=== PATIENT | female | born 1970 | race Caucasian/White ===

== ENCOUNTER 2016-07-19 15:47 | Emergency (ER) | payer OTHER ==
[2016-07-19 15:53] VITALS: BP 154/80; PULSE 99; RESP 20; TEMP 97.1
[2016-07-19] MEDS ORDERED: MORPHINE SULFATE 4 MG/ML SYRINGE IM STA (16:17)
--- NOTE | 2016-07-19 16:20 | ED ---
Back Pain HPI - General Chief Complaint: Back Pain/Injury Stated Complaint: back pain Time Seen by Provider: 07/19/16 15:58 Source: patient, RN notes reviewed Limitations: no limitations - History of Present Illness Initial Comments: 46-year-old female presents emergency Department with chief complaint of chronic back pain. Patient states that she's had exacerbation of her pain over the last 24 hours. Patient's try to [place] several occasions no relief. She also takes Valium. Patient denies any bowel bladder cancer retention. Denies any saddle anesthesias lower extremity paresthesias. Denies abdominal pain including nausea, vomiting, diarrhea constipation. She states pain is better at rest worse with movement. Patient states she's had prior back surgery in the past. Patient states she takes 4-6 [place] daily. - Related Data Home Medications Medication Instructions Recorded Confirmed Lisinopril [Zestril] 10 mg PO DAILY 08/08/14 07/19/16 amLODIPine [Norvasc] 5 mg PO DAILY 08/08/14 07/19/16 glipiZIDE [Glucotrol] 20 mg PO BID 08/08/14 07/19/16 metFORMIN HCL 1,000 mg PO BID 08/08/14 07/19/16 Diazepam [Valium] 10 mg PO Q8H PRN 03/15/16 07/19/16 Hydrocodone/Acetaminophen [[place] 1 - 2 tab PO Q4HR PRN 03/15/16 07/19/16 5-325] Levothyroxine Sodium [Synthroid] 175 mcg PO DAILY 03/15/16 07/19/16 Ibuprofen [Motrin] 800 mg PO Q6HR PRN 07/19/16 07/19/16 Omeprazole [PriLOSEC] 20 mg PO DAILY 07/19/16 07/19/16 Previous Rx's Medication Instructions Recorded predniSONE 50 mg PO DAILY #3 tab 07/19/16 Allergies Allergy/AdvReac Type Severity Reaction Status Date / Time No Known Allergies Allergy Verified 07/19/16 16:09 Review of Systems ROS Statement: Those systems with pertinent positive or pertinent negative responses have been documented in the HPI. ROS Other: All systems not noted in ROS Statement are negative. Past Medical History Past Medical History: Diabetes Mellitus, Hypertension Additional Past Medical History / Comment(s): chronic low back pain History of Any Multi-Drug Resistant Organisms: None Reported Past Surgical History: Back Surgery, Cholecystectomy, Hysterectomy Past Psychological History: No Psychological Hx Reported Smoking Status: Former smoker Past Alcohol Use History: Occasional Past Drug Use History: None Reported General Exam Limitations: no limitations General appearance: alert, in no apparent distress Neck exam: Present: normal inspection. Absent: tenderness, meningismus, lymphadenopathy Respiratory exam: Present: normal lung sounds bilaterally. Absent: respiratory distress, wheezes, rales, rhonchi, stridor Cardiovascular Exam: Present: regular rate, normal rhythm, normal heart sounds. Absent: systolic murmur, diastolic murmur, rubs, gallop, clicks GI/Abdominal exam: Present: soft, normal bowel sounds. Absent: distended, tenderness, guarding, rebound, rigid Extremities exam: Present: normal inspection, full ROM, normal capillary refill. Absent: tenderness, pedal edema, joint swelling, calf tenderness Back exam: Present: full ROM, tenderness (Mild tenderness left low back), paraspinal tenderness. Absent: vertebral tenderness Neurological exam: Present: alert, oriented X3, CN II-XII intact, reflexes normal. Absent: motor sensory deficit Course Vital Signs 07/19/16 15:50 Temperature 97.1 F L Pulse Rate 99 Respiratory 20 Rate Blood Pressure 154/80 O2 Sat by Pulse 97 Oximetry Medical Decision Making - Medical Decision Making 46-year-old female presented for chronic back pain. Patient given pain medications here in emergency department and discharged. Return parameters were discussed. Patient has no red flag symptoms no neurological deficits. Disposition Clinical Impression: Chronic back pain Disposition: HOME SELF-CARE Condition: Stable Instructions: Chronic Back Pain (ED) Additional Instructions: Please return to the Emergency Department if symptoms worsen or any other concerns. Prescriptions: predniSONE 50 mg PO DAILY #3 tab Time of Disposition: 16:20
[2016-07-19] MEDS ORDERED: diphenhydrAMINE 50 MG CAP PO STA (16:32)
== END 2016-07-19 16:53 | disposition home or self-care (01) ==
LOC: EC 15:47
DX: G89.29 Other chronic pain (principal); M54.9 Dorsalgia, unspecified; E11.9 Type 2 diabetes mellitus without complications; I10 Essential (primary) hypertension; Z87.891 Personal history of nicotine dependence; Z79.84 Long term (current) use of oral hypoglycemic drugs; Z79.899 Other long term (current) drug therapy
CPT/HCPCS: 99283; 96372; J2270

== ENCOUNTER 2016-09-19 20:30 | Emergency (ER) | payer OTHER ==
[2016-09-19 21:12] VITALS: BP 123/68; PULSE 102; RESP 18; TEMP 97.6
[2016-09-19] MEDS ORDERED: MORPHINE SULFATE 10 MG/ML SYRINGE IM STA (21:59)
--- NOTE | 2016-09-19 22:03 | ED ---
Back Pain HPI - General Chief Complaint: Back Pain/Injury Stated Complaint: back pain Time Seen by Provider: 09/19/16 21:32 Source: patient, RN notes reviewed Limitations: no limitations - History of Present Illness Initial Comments: Patient is a 46-year-old female presents to the emergency room for evaluation of low back pain. Patient states she has a history of chronic low back pain. Patient states she takes [place] daily. Patient states about 2 days ago she tripped over her dog and fell on her left side. Patient states she has been having worsening left-sided low back pain with pain radiating down her left leg. Patient denies fecal or urinary incontinence. Patient denies saddle anesthesia. Patient denies paresthesias. Patient states the [place] is not helping her pain. Patient states she needs something to help her go to sleep tonight. Patient denies any other injuries during incident. Patient states she feels like she has swelling over the left side of her lower back. - Related Data Home Medications Medication Instructions Recorded Confirmed Lisinopril [Zestril] 10 mg PO DAILY 08/08/14 07/19/16 amLODIPine [Norvasc] 5 mg PO DAILY 08/08/14 07/19/16 glipiZIDE [Glucotrol] 20 mg PO BID 08/08/14 07/19/16 metFORMIN HCL 1,000 mg PO BID 08/08/14 07/19/16 Diazepam [Valium] 10 mg PO Q8H PRN 03/15/16 07/19/16 Hydrocodone/Acetaminophen [[place] 1 - 2 tab PO Q4HR PRN 03/15/16 07/19/16 5-325] Levothyroxine Sodium [Synthroid] 175 mcg PO DAILY 03/15/16 07/19/16 Ibuprofen [Motrin] 800 mg PO Q6HR PRN 07/19/16 07/19/16 Omeprazole [PriLOSEC] 20 mg PO DAILY 07/19/16 07/19/16 Previous Rx's Medication Instructions Recorded predniSONE 50 mg PO DAILY #3 tab 07/19/16 Allergies Allergy/AdvReac Type Severity Reaction Status Date / Time No Known Allergies Allergy Verified 09/19/16 21:13 Review of Systems ROS Statement: Those systems with pertinent positive or pertinent negative responses have been documented in the HPI. ROS Other: All systems not noted in ROS Statement are negative. Past Medical History Past Medical History: Diabetes Mellitus, Hypertension Additional Past Medical History / Comment(s): chronic low back pain History of Any Multi-Drug Resistant Organisms: None Reported Past Surgical History: Back Surgery, Cholecystectomy, Hysterectomy Past Psychological History: No Psychological Hx Reported Smoking Status: Former smoker Past Alcohol Use History: Occasional Past Drug Use History: None Reported General Exam - General Exam Comments Initial Comments: sitting up in exam room, no acute distress. Limitations: no limitations General appearance: alert, in no apparent distress Head exam: Present: atraumatic, normocephalic, normal inspection Eye exam: Present: normal appearance ENT exam: Present: normal exam Neck exam: Present: normal inspection Respiratory exam: Present: normal lung sounds bilaterally. Absent: respiratory distress Cardiovascular Exam: Present: regular rate, normal rhythm, normal heart sounds Back exam: Present: normal inspection, paraspinal tenderness (tenderness on palpating over her left side of the lumbosacral spine. No swelling noted. No eccymosis noted.), vertebral tenderness (palpating over lumbosacral spine) Neurological exam: Present: alert, oriented X3, CN II-XII intact Psychiatric exam: Present: normal affect, normal mood Skin exam: Present: warm, dry, intact, normal color. Absent: rash Course Vital Signs 09/19/16 21:11 Temperature 97.6 F Pulse Rate 102 H Respiratory 18 Rate Blood Pressure 123/68 O2 Sat by Pulse 97 Oximetry Medical Decision Making - Medical Decision Making patient is a 46-year-old female since emergency room for evaluation of acute on chronic low back pain. Patient did fall about 2 days ago landing on her left side. Patient having worsening left-sided low back pain rating into her left leg. Patient denies saddle anesthesia, urinary or fecal incontinence. Lumbosacral x-ray shows no acute findings. Patient states she is feeling a lot better after pain medications given. Advised patient to follow-up with primary care provider. Patient states she understands everything that was discussed with her. Return parameters discussed. - Radiology Data Radiology results: report reviewed, image reviewed Disposition Clinical Impression: Acute exacerbation of chronic low back pain, Fall Disposition: HOME SELF-CARE Condition: Good Instructions: Chronic Back Pain (ED) Additional Instructions: Continue with at home pain medications as needed. Alternate ice and heat. Please follow-up with primary care provider in 24-48 hours for reevaluation. If any new symptoms develop or worsen please return to the emergency room. Referrals: Tj Peace MD [Primary Care Provider] - 1-2 days Time of Disposition: 22:50
--- NOTE | 2016-09-19 22:44 | XR ---
EXAM: XR Lumbar Spine, 4 or 5 Views CLINICAL HISTORY: Reason: Pain TECHNIQUE: Frontal, lateral and oblique views of the lumbar spine. COMPARISON: No relevant prior studies available. FINDINGS: Vertebrae: Unremarkable. No acute fracture. Normal alignment. Disc spaces: Disc space narrowing and endplate degenerative changes at L5-S1 where there may have been previous laminectomy, along with lower lumbar facet degenerative changes at L5-S1 and to a lesser degree L4-5. Soft tissues: Unremarkable. IMPRESSION: 1. Lower lumbar spondylosis notably at L5-S1, where there appears to have been prior surgery. 2. No acute fracture or listhesis is seen.
== END 2016-09-19 23:01 | disposition home or self-care (01) ==
LOC: EC 20:30
DX: G89.29 Other chronic pain (principal); M54.5 Low back pain; Z91.81 History of falling; Z79.899 Other long term (current) drug therapy; E11.9 Type 2 diabetes mellitus without complications; Z79.84 Long term (current) use of oral hypoglycemic drugs; I10 Essential (primary) hypertension; Z87.891 Personal history of nicotine dependence
CPT/HCPCS: 96372; 99283; 72110; J2270

== ENCOUNTER 2016-10-01 14:01 | Observation (INO) | payer OTHER ==
[2016-10-01] MEDS ORDERED: MORPHINE SULFATE 10 MG/ML SYRINGE IV ONE (15:13)
[2016-10-01] MEDS ORDERED: SODIUM CHLORIDE 0.9% 2,000 ML IV ONE (15:13)
--- NOTE | 2016-10-01 15:24 | ED ---
Fall HPI - General Chief Complaint: Fall Stated Complaint: Fall/hit head/vomiting Time Seen by Provider: 10/01/16 14:55 Source: EMS Mode of arrival: EMS Limitations: no limitations - History of Present Illness Initial Comments: Patient is a 46-year-old female who presents with a chief complaint of fall. He states that she was at home, stood up from a chair and fell backwards and hit her head on an entertainment system. Patient states that she has been dealing with dizziness for several months. She has not been seen by a physician for this issue yet. Patient describes her dizziness as more of a disequilibrium, she states she feels that she is on a boat. Patient states that she does take [place], and Valium on a daily basis for a vertebral body fracture. Patient states that currently she has a headache. She describes the pain as a throbbing pain. Patient did not lose consciousness, did not have any bleeding. He does state that she became nauseous, and vomited about 10 minutes after falling. Patient's daughter called EMS, and the patient presented to the emergency department. MD Complaint: fall Onset/Timin -: hour(s) Fall From: standing When Fall Occurred: 1 hour [facility] Fall Witnessed: yes, by family Place Fall Occurred: home Loss of Consciousness: none Prolonged Down Time?: no Symptoms Prior to Fall: other (Disequilibrium) Location: head Severity: moderate Quality: other (Throbbing) Context: new medication Associated Symptoms: headache, other (Nausea and vomiting) - Related Data Home Medications Medication Instructions Recorded Confirmed Lisinopril [Zestril] 10 mg PO DAILY 08/08/14 10/01/16 glipiZIDE [Glucotrol] 20 mg PO BID 08/08/14 10/01/16 metFORMIN HCL 1,000 mg PO BID 08/08/14 10/01/16 Diazepam [Valium] 10 mg PO BID 03/15/16 10/01/16 Hydrocodone/Acetaminophen [[place] 2 tab PO BID 03/15/16 10/01/16 5-325] Levothyroxine Sodium [Synthroid] 175 mcg PO DAILY 03/15/16 10/01/16 Insulin Glargine [Lantus] 5 unit SQ HS 10/01/16 10/01/16 amLODIPine [Norvasc] 10 mg PO DAILY 10/01/16 10/01/16 Allergies Allergy/AdvReac Type Severity Reaction Status Date / Time bupivacaine AdvReac Unknown Verified 10/01/16 15:27 fentanyl AdvReac Unknown Verified 10/01/16 15:27 Review of Systems ROS Statement: Those systems with pertinent positive or pertinent negative responses have been documented in the HPI. Patient admits to disequilibrium, dizziness, nausea, vomiting, and headache. All other systems are negative. ROS Other: All systems not noted in ROS Statement are negative. Past Medical History Past Medical History: Diabetes Mellitus, Hypertension Additional Past Medical History / Comment(s): chronic low back pain History of Any Multi-Drug Resistant Organisms: None Reported Past Surgical History: Back Surgery, Cholecystectomy, Hysterectomy Past Psychological History: No Psychological Hx Reported Smoking Status: Former smoker Past Alcohol Use History: Occasional Past Drug Use History: None Reported General Exam Limitations: no limitations General appearance: alert, in no apparent distress Head exam: Present: atraumatic, normocephalic, other (Patient has tenderness to palpation in the posterior aspect of her head, just above the occiput) Eye exam: Present: normal appearance ENT exam: Present: normal exam, mucous membranes moist Neck exam: Present: tenderness (Patient does have midline and paraspinal tenderness palpation of the C-spine.) Respiratory exam: Present: normal lung sounds bilaterally Cardiovascular Exam: Present: regular rate, normal rhythm GI/Abdominal exam: Present: soft Rectal exam: Present: deferred Extremities exam: Present: normal inspection Back exam: Present: other (The patient has tenderness to palpation in the lower back, this is a chronic issue.) Neurological exam: Present: alert, oriented X3, abnormal gait Psychiatric exam: Present: normal affect, normal mood Skin exam: Present: warm, dry, intact Course Vital Signs 10/01/16 10/01/16 14:52 15:38 Temperature 96.7 F L Pulse Rate 84 90 Respiratory 20 16 Rate Blood Pressure 115/63 126/77 O2 Sat by Pulse 97 97 Oximetry Medical Decision Making - Medical Decision Making Patient is a 46-year-old female who presents with a chief complaint of fall after feeling off balance at home. Patient states that this issue has been going on for several months, though she has never been seen specifically for her disequilibrium. Patient was placed in a c-collar secondary to neck pain. She will go for a CT head and neck. Basic, and cardiac evaluation will be sent to rule out extraneous causes of dizziness. Neurologic exam is concerning as patient is having difficulty ambulating by herself. Patient states that she feels as if she is on a boat. I discussed ultimate disposition with the patient and recommended admission for MRI, and consult to neurology. Patient family are agreeable with this plan at this time. EKG performed at 1533 shows normal sinus rhythm with a rate of 88 bpm. Segments appear within normal limits. EKG is otherwise nonspecific. 4:46 PM Laboratory evaluation of this patient shows leukocytosis 13,000 white blood cells. Urinalysis concerning for urinary tract infection. The patient was started on Rocephin. This time currently awaiting interpretation of computed tomography scan. Initial troponin is negative, however pending a normal computed tomography scan the patient will get a dose of aspirin. 5:10 PM Computed tomography scan of the head and cervical spine are unremarkable. Patient will be given 324 aspirin this time. This case was discussed with Dr. Mallory who accepts admission of this patient for MRI. MRI will be ordered from the ED, and followed by Dr. Mallory. Reevaluation of the patient shows that the patient remains stable. Patient was given a dose of Zofran for nausea. Patient was updated on her results thus far, and is still agreeable to admission for MRI. - Lab Data Result diagrams: 10/01/16 15:40 10/01/16 15:40 Lab Results 10/01/16 10/01/16 10/01/16 Range/Units 15:40 15:40 15:40 WBC 13.7 H (3.8-10.6) k/uL RBC 5.41 H (3.80-5.40) m/uL Hgb 16.1 H (11.4-16.0) gm/dL Hct 46.2 H (34.0-46.0) % MCV 85.4 (80.0-100.0) fL MCH 29.8 (25.0-35.0) pg MCHC 34.9 (31.0-37.0) g/dL RDW 12.7 (11.5-15.5) % Plt Count 349 (150-450) k/uL Neutrophils % 45 % Lymphocytes % 46 % Monocytes % 4 % Eosinophils % 2 % Basophils % 1 % Neutrophils # 6.2 (1.3-7.7) k/uL Lymphocytes # 6.3 H (1.0-4.8) k/uL Monocytes # 0.5 (0-1.0) k/uL Eosinophils # 0.3 (0-0.7) k/uL Basophils # 0.1 (0-0.2) k/uL Polychromasia Present Sodium 137 (137-145) mmol/L Potassium 4.5 (3.5-5.1) mmol/L Chloride 101 (98-107) mmol/L Carbon Dioxide 23 (22-30) mmol/L Anion Gap 13 mmol/L BUN 14 (7-17) mg/dL Creatinine 0.55 (0.52-1.04) mg/dL Est GFR (MDRD) Af Amer >60 (>60 ml/min/1.73 sqM) Est GFR (MDRD) Non-Af >60 (>60 ml/min/1.73 sqM) Glucose 232 H (74-99) mg/dL Calcium 9.9 (8.4-10.2) mg/dL Troponin I <0.012 (0.000-0.034) ng/mL Urine Color Urine Appearance (Clear) Urine pH (5.0-8.0) Ur Specific [place] (1.001-1.035) Urine Protein (Negative) Urine Glucose (UA) (Negative) Urine Ketones (Negative) Urine Blood (Negative) Urine Nitrite (Negative) Urine Bilirubin (Negative) Urine Urobilinogen (<2.0) mg/dL Ur Leukocyte Esterase (Negative) Urine RBC (0-5) /hpf Urine WBC (0-5) /hpf Ur Squamous Epith Cells (0-4) /hpf Urine Bacteria (None) /hpf Urine Mucus (None) /hpf Urine Yeast (Budding) (None) /hpf 10/01/16 Range/Units 15:40 WBC (3.8-10.6) k/uL RBC (3.80-5.40) m/uL Hgb (11.4-16.0) gm/dL Hct (34.0-46.0) % MCV (80.0-100.0) fL MCH (25.0-35.0) pg MCHC (31.0-37.0) g/dL RDW (11.5-15.5) % Plt Count (150-450) k/uL Neutrophils % % Lymphocytes % % Monocytes % % Eosinophils % % Basophils % % Neutrophils # (1.3-7.7) k/uL Lymphocytes # (1.0-4.8) k/uL Monocytes # (0-1.0) k/uL Eosinophils # (0-0.7) k/uL Basophils # (0-0.2) k/uL Polychromasia Sodium (137-145) mmol/L Potassium (3.5-5.1) mmol/L Chloride (98-107) mmol/L Carbon Dioxide (22-30) mmol/L Anion Gap mmol/L BUN (7-17) mg/dL Creatinine (0.52-1.04) mg/dL Est GFR (MDRD) Af Amer (>60 ml/min/1.73 sqM) Est GFR (MDRD) Non-Af (>60 ml/min/1.73 sqM) Glucose (74-99) mg/dL Calcium (8.4-10.2) mg/dL Troponin I (0.000-0.034) ng/mL Urine Color Dark Brown Urine Appearance Cloudy H (Clear) Urine pH 5.5 (5.0-8.0) Ur Specific [place] 1.012 (1.001-1.035) Urine Protein Negative (Negative) Urine Glucose (UA) Negative (Negative) Urine Ketones Negative (Negative) Urine Blood Negative (Negative) Urine Nitrite Positive H (Negative) Urine Bilirubin Negative (Negative) Urine Urobilinogen 2.0 (<2.0) mg/dL Ur Leukocyte Esterase Large H (Negative) Urine RBC 1 (0-5) /hpf Urine WBC 69 H (0-5) /hpf Ur Squamous Epith Cells 2 (0-4) /hpf Urine Bacteria Few H (None) /hpf Urine Mucus Rare H (None) /hpf Urine Yeast (Budding) Occasional H (None) /hpf Disposition Clinical Impression: Abnormal gait, Urinary tract infection Disposition[facility] Condition: Good Referrals: Tj Peace MD [Primary Care Provider] - 1-2 days Decision to Admit Reason: Admit from EC
[2016-10-01 15:58] LABS: Basophils # (A) 0.1 k/uL (0-0.2); Basophils % (A) 1 %; CH 29.6; CHCM 34.8; Eosinophils # (A) 0.3 k/uL (0-0.7); Eosinophils % (A) 2 %; HCT 46.2 % (34.0-46.0); HDW 2.57; HGB 16.1 gm/dL (11.4-16.0); Luc # (Auto) 0.31; Luc % (Auto) 2; Lymphocytes # (A) 6.3 k/uL (1.0-4.8); Lymphocytes % (A) 46 %; MCH 29.8 pg (25.0-35.0); MCHC 34.9 g/dL (31.0-37.0); MCV 85.4 fL (80.0-100.0); Mean Platelet Volume 7.7; Monocytes # (A) 0.5 k/uL (0-1.0); Monocytes % (A) 4 %; Neutrophils # (A) 6.2 k/uL (1.3-7.7); Neutrophils % (A) 45 %; RBC 5.41 m/uL (3.80-5.40); RDW 12.7 % (11.5-15.5); WBC 13.7 k/uL (3.8-10.6); WBC (Perox) 13.15
[2016-10-01 16:06] LABS: Appearance,Urine Cloudy (Clear); Bacteria,Urine Few /hpf; Bilirubin,Urine Negative (Negative); Glucose,Urine (UA) Negative (Negative); Ketones,Urine Negative (Negative); Leukocyte Esterase,Urine Large (Negative); Mucus,Urine Rare /hpf; Nitrite,Urine Positive (Negative); PH, Urine 5.5 (5.0-8.0); Particle Count 4676; Protein,Urine Negative (Negative); RBC,Urine 1 /hpf (0-5); Specific Gravity,Urine 1.012 (1.001-1.035); Squamous Epithelial Cell,Urine 2 /hpf (0-4); UA Billing (MACRO vs. MICRO) MICRO; WBC,Urine 69 /hpf (0-5)
[2016-10-01 16:08] LABS: Anion Gap 13 mmol/L; Blood Urea Nitrogen 14 mg/dL (7-17); Calcium 9.9 mg/dL (8.4-10.2); Carbon Dioxide 23 mmol/L (22-30); Chloride 101 mmol/L (98-107); Glucose 232 mg/dL (74-99); Non-African American GFR(MDRD) >60 (>60 ml/min/1.73 sqM); Potassium 4.5 mmol/L (3.5-5.1); Sodium 137 mmol/L (137-145)
[2016-10-01 16:18] LABS: Polychromasia Present
--- NOTE | 2016-10-01 16:44 | CT ---
EXAMINATION TYPE: CT brain kristy cortez DATE OF EXAM: 10/01/2016 COMPARISON: NONE HISTORY: fall hitting head, vomiting CT DLP: 1616.8 mGycm Automated exposure control for dose reduction was used. TECHNIQUE: CT scan of the head and cervical spine are performed without contrast. FINDINGS: There is no acute intracranial hemorrhage, mass effect, or midline shift identified. The ventricular system is midline. No mass effect or midline shift. Calvarium intact. Faint periventricul ar low attenuation is nonspecific. Hyperostosis of the calvarium noted. Multilevel mild degenerative disc disease. There is loss of the normal cervical lordosis. Hypertrophi c spurring anteriorly at C4-5 and C5-C6. Facet arthropathy at C5-6 and C6-C7 on the left. Artifact and noncontrast technique limits assessment spinal canal. IMPRESSION: 1. There is no acute fracture or dislocation evident in the cervical spine. 2. No acute intracranial hemorrhage, mass effect, or midline shift is seen. Nonspecific white matter changes could be correlated with MRI correlate clinically.
[2016-10-01] MEDS ORDERED: ASPIRIN 81 MG CHEW PO STA (17:10)
[2016-10-01] MEDS ORDERED: ONDANSETRON 4 MG/2 ML VIAL IVP STA (17:15)
[2016-10-01] MEDS ORDERED: NALOXONE 0.4 MG/ML 1 ML VIAL IV PRN (17:23)
--- NOTE | 2016-10-01 17:32 | XR ---
EXAMINATION TYPE: XR chest 2V DATE OF EXAM: 10/01/2016 COMPARISON: NONE HISTORY: Pain after trauma TECHNIQUE: Frontal and lateral views of the chest are obtained. FINDINGS: There is no focal air space opacity, pleural effusion, or pneumothorax seen. The cardiac silhouette size is within normal limits. The osseous structures are intact. IMPRESSION: No acute cardiopulmonary process.
[2016-10-01 19:38] LABS: Glucose,Whole Blood 168 mg/dL (75-99)
[2016-10-01] MEDS: INSULIN GLARGINE 100 UNIT/ML 10 ML VIAL SQ SCH (20:23)
[2016-10-01] MEDS: HYDROcodone/APAP 5-325MG 1 EACH TAB PO SCH (20:32)
[2016-10-01] MEDS: DIAZEPAM 5 MG TAB PO SCH (20:32)
[2016-10-01] MEDS: metFORMIN 500 MG TAB PO SCH (20:32)
[2016-10-01] MEDS: INSULIN LISPRO (humaLOG) 300 UNIT/3 ML VIAL SQ SCH (20:33)
[2016-10-01] MEDS: glipiZIDE 10 MG TAB PO SCH (20:57)
[2016-10-02] MEDS: LEVOTHYROXINE 75 MCG TAB PO SCH (05:09)
[2016-10-02] MEDS: LEVOTHYROXINE 100 MCG TAB PO SCH (05:09)
[2016-10-02] MEDS: ACETAMINOPHEN TAB 325 MG TAB PO PRN ×2 (06:01→14:55)
[2016-10-02 07:00] LABS: Glucose,Whole Blood 198 mg/dL (75-99)
[2016-10-02] MEDS: glipiZIDE 10 MG TAB PO SCH ×2 (07:52→17:25)
[2016-10-02] MEDS: INSULIN LISPRO (humaLOG) 300 UNIT/3 ML VIAL SQ SCH ×4 (07:52→20:35)
[2016-10-02] MEDS: HYDROcodone/APAP 5-325MG 1 EACH TAB PO SCH ×2 (07:53→20:34)
--- NOTE | 2016-10-02 09:01 | MR ---
EXAMINATION TYPE: MR brain wo/w con DATE OF EXAM: 10/02/2016 COMPARISON: CT brain from yesterday. HISTORY: Abnormal gait, blackout, vomiting, fell and hit head yesterday. TECHNIQUE: Multiplanar, multisequence images of the brain and brainstem is performed without and with IV contras t, utilizing 20 mL intravenous MultiHance . Trauma protocol. FINDINGS: Diffusion weighted images demonstrate no evidence of a recent infarct or other diffusion ab normality. There is no extra-axial fluid collection or significant white matter signal abnormality. The ventricular system and cisternal spaces are normal in size and appearance. The brain volume is age appropriate. T2 Star weighted images show no suspicious intraparenchymal blood product, some ismael t bilateral basal ganglia calcifications are felt present on CT correlation. Midline structures demonstrate normal morphology. The craniocervical junction appears within normal limits. Post contrast images demonstrate no abnormal enhancement. The dural venous sinuses appear pa tent. The visualized sinuses are clear and the globes are intact. Hyperostosis frontalis is seen best on recent CT. Nasal septum is deviated to left of midline. No suspicious fluid in mastoid air cells is present. IMPRESSION: No evidence of a recent infarct. No significant finding is seen to account for patient's symptoms.
[2016-10-02] MEDS: amLODIPine 10 MG TAB PO SCH (09:06)
[2016-10-02] MEDS: LISINOPRIL 10 MG TAB PO SCH (09:06)
[2016-10-02] MEDS: metFORMIN 500 MG TAB PO SCH ×2 (09:06→20:35)
[2016-10-02] MEDS: DIAZEPAM 5 MG TAB PO SCH ×2 (09:08→20:35)
[2016-10-02 12:13] LABS: Glucose,Whole Blood 240 mg/dL (75-99)
[2016-10-02 12:44] LABS: Hemoglobin A1C 9.9 % (4.2-6.1)
[2016-10-02 13:30] VITALS: BMI 37.5
[2016-10-02 17:01] LABS: Glucose,Whole Blood 232 mg/dL (75-99)
--- NOTE | 2016-10-02 19:17 | US ---
EXAMINATION TYPE: US carotid duplex BILAT DATE OF EXAM: 10/02/2016 COMPARISON: NONE CLINICAL HISTORY: syncope. Syncope EXAM MEASUREMENTS: RIGHT: Peak Systolic Velocity (PSV) cm/sec ----- Right CCA: 73.5 ----- Right ICA: 77.9 ----- Right ECA: 87.8 ICA/CCA ratio: 1.1 RIGHT: End Diastole cm/sec ----- Right CCA: 15.3 ----- Right ICA: 30.7 ----- Right ECA: 8.7 LEFT: Peak Systolic Velocity (PSV) cm/sec ----- Left CCA: 73.2 ----- Left ICA: 90.0 ----- Left ECA: 93.3 ICA/CCA ratio: 1.2 LEFT: End Diastole cm/sec ----- Left CCA: 17.4 ----- Left ICA: 31.8 ----- Left ECA: 9.8 VERTEBRALS (direction of flow): Right Vertebral: Antegrade Left Vertebral: Antegrade No significant velocity elevations Grayscale images show no significant focal plaque at carotid bulb level bilaterally. Velocity measure ments and ratios in visualized portion of both internal carotid arteries is within normal limits. IMPRESSION: No hemodynamically significant stenosis is seen in either internal carotid artery.
[2016-10-02 20:18] LABS: Glucose,Whole Blood 212 mg/dL (75-99)
[2016-10-02] MEDS: INSULIN GLARGINE 100 UNIT/ML 10 ML VIAL SQ SCH (20:33)
--- NOTE | 2016-10-02 23:47 | P.CNNES ---
History of Present Illness Consult date: 10/01/16 Requesting physician: Peña Mallory Reason for Consult: Abnormal gait Chief complaint: Dizziness, headache History of Present Illness: Patient is a 46-year-old female being consult by neurology for complaint of fall , abnormal gait and dizziness. He states that she was at home, sit up from a chair fell backwards and hit her head on a piece of furniture. Patient states she has been having ongoing dizziness for several months. She has not been seen by a physician due to lack of insurance. Patient describes her condition is more disequilibrium and dizziness and states that she feels as if she is "on a boat." Patient also experiences routine headache and is currently experiencing headache. Pain is described as throbbing, bilateral, frontal and also does extend posteriorly. Patient denies loss of consciousness, bleeding. States she became nauseous, vomited 10 minutes after falling. Daughter called EMS and the patient was transported to the emergency department. At contact, the patient was supine in bed resting, alert and oriented 3 and in no acute distress. Patient is noted to be obese, slight facial hirsutism, middle aged, has current or recent past complaints of headaches, dizziness, vertigo. Review of Systems Systems not noted in HPI or negative Past Medical History Past Medical History: Diabetes Mellitus, Hypertension, Thyroid Disorder Additional Past Medical History / Comment(s): "DIZZINESS,BALANCE ISSUES FOR PAST FEW MONTHS, FALL. chronic low back pain-SLEEPS IN A RECLINER CHAIR. PAST FX L3 AND L5 History of Any Multi-Drug Resistant Organisms: None Reported Past Surgical History: Back Surgery, Cholecystectomy, Hysterectomy Additional Past Surgical History / Comment(s): PARTIAL HYSTERECTOMY Past Anesthesia/Blood Transfusion Reactions: Previous Problems w/ Anesthesia Additional Past Anesthesia/Blood Transfusion Reaction / Comment(s): "WENT INTO SHOCK WITH EPIDURAL" CLAUSTERPHOBIA Smoking Status: Former smoker - Past Family History Father Family Medical History: No Reported History Mother Additional Family Medical History / Comment(s): PROBLEMS W/ALLERGIES Medications and Allergies Home Medications Medication Instructions Recorded Confirmed Type Lisinopril [Zestril] 10 mg PO DAILY 08/08/14 10/01/16 History glipiZIDE [Glucotrol] 20 mg PO BID 08/08/14 10/01/16 History metFORMIN HCL 1,000 mg PO BID 08/08/14 10/01/16 History Diazepam [Valium] 10 mg PO BID 03/15/16 10/01/16 History Hydrocodone/Acetaminophen [[place] 2 tab PO BID 03/15/16 10/01/16 History 5-325] Levothyroxine Sodium [Synthroid] 175 mcg PO DAILY 03/15/16 10/01/16 History Insulin Glargine [Lantus] 5 unit SQ HS 10/01/16 10/01/16 History amLODIPine [Norvasc] 10 mg PO DAILY 10/01/16 10/01/16 History Allergies Allergy/AdvReac Type Severity Reaction Status Date / Time bupivacaine AdvReac Unknown Verified 10/01/16 23:33 fentanyl AdvReac Unknown Verified 10/01/16 23:33 Physical Examination - Vital Signs Vital Signs: Vital Signs Temp Pulse Pulse Pulse Pulse Resp BP 10/02/16 19:55 88 18 10/02/16 19:14 98.2 F 88 18 104/59 10/02/16 16:18 98.2 F 80 18 10/02/16 12:00 98.0 F 86 98 82 18 119/71 10/02/16 08:00 97.7 F 83 18 10/02/16 04:00 97.9 F 84 18 10/01/16 23:35 80 18 BP BP BP Pulse Ox 10/02/16 19:55 10/02/16 19:14 96 10/02/16 16:18 103/53 100 10/02/16 12:00 114/74 101/58 94 L 10/02/16 08:00 110/66 97 10/02/16 04:00 109/68 97 10/01/16 23:35 Intake and Output 10/02/16 10/02/16 10/02/16 06:59 14:59 22:59 Intake Total 700 740 420 Balance 700 740 420 Intake: IV 100 0.9 NS @ KVO 100 Oral 600 740 420 Other: Voiding Method Toilet Toilet Toilet # Voids 2 1 Weight 108.862 kg Patient Weight 10/03/16 06:59 Weight 108.862 kg Constitutional: AOx3, cooperative HEENT: NC/AT, no facial asymmetry is seen. Throat: Supple, no masses Respiratory: No increased work of breathing Cardiac: Regular rate and Rhythm GI: non tender, non distended Musculoskeletal: Utility Bill Complaints Investigator strengths are equal bilaterally 5/5, Lower extremity strengths are equal bilaterally at 5/5. Neurological: CN II-XII in tact, patient was AOx3, speech and language are normal, no unilateralizing weakness, no seizure activity note on physical exam. Sensation was normal. Integementary: no rash, no erythema Psychiatric: affect appropriate Results - Laboratory Findings CBC and BMP: 10/01/16 15:40 10/01/16 15:40 Abnormal Lab Findings: Abnormal Labs 10/01/16 10/01/16 10/01/16 15:40 15:40 15:40 WBC 13.7 H RBC 5.41 H Hgb 16.1 H Hct 46.2 H Lymphocytes # 6.3 H Glucose 232 H POC Glucose (mg/dL) Hemoglobin A1c Urine Appearance Cloudy H Urine Nitrite Positive H Ur Leukocyte Esterase Large H Urine WBC 69 H Urine Bacteria Few H Urine Mucus Rare H Urine Yeast (Budding) Occasional H 10/01/16 10/01/16 10/02/16 15:40 19:26 06:58 WBC RBC Hgb Hct Lymphocytes # Glucose POC Glucose (mg/dL) 168 H 198 H Hemoglobin A1c 9.9 H Urine Appearance Urine Nitrite Ur Leukocyte Esterase Urine WBC Urine Bacteria Urine Mucus Urine Yeast (Budding) 10/02/16 10/02/16 10/02/16 12:11 16:58 20:17 WBC RBC Hgb Hct Lymphocytes # Glucose POC Glucose (mg/dL) 240 H 232 H 212 H Hemoglobin A1c Urine Appearance Urine Nitrite Ur Leukocyte Esterase Urine WBC Urine Bacteria Urine Mucus Urine Yeast (Budding) Assessment and Plan (1) Urinary tract infection Status: Acute (2) Abnormal gait Status: Acute (3) Fall Status: Acute (4) Acute exacerbation of chronic low back pain Status: Acute Plan: Altered gait secondary to infectious processUTI Altered gait secondary to medication misuse Hyperostosis frontalis-rule out [place]u-Uhuwkbv-Fcueo syndrome 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 Patient reports having decreased symptoms since IV antibiotics have been initiated. Patient is approximately 50% return to baseline. Patient also has symptoms and exam findings consistent with gait secondary to misuse of prescription medications. Patient is currently prescribed [place] 5/325 mg 2 tabs in the morning with 10 mg of Valium and [place] 5/325 mg 2 tabs in the afternoon/evening with 10 mg of Valium while using her 's Flexeril intermittently while at home. Medications are provided by her pain management provider Dr. Peace in [place]. Patient was also increased on her Valium in the last 2-4 weeks, with the addition of the evening dose, her altered gait increased Significantly in intensity, frequency and duration. Patient had imaging of the brain that included CT of the brain and MRI of the brain. Incidental finding of hyperostosis frontalis was noted On imaging. At this time there must be consideration given to rule out Xiptpzmr-Gsogqjl-Uzinp syndrome given the patient's Current, intermittent and ongoing symptoms that include: middle aged, female, dizziness, vertigo, obesity, nausea, slight facial hirsutism, diabetes/hyperglycemia. Current recommendations and treatment guidelines are to treat symptomatically. The patient may need further workup outpatient with endocrinology based on the results of the PTH and A1C bloodwork once reviewed. Patient's chronic low back pain spans approximately 12 years and the patient has a history of lumbar surgery, most likely discectomy when described by patient at either L4/5 or L5/S1 areas. Patient has not had conservative management in greater than 2 years since losing her insurance. Patient has been treated primarily with pain medication as noted above. Patient was warned and educated that use of narcotic/opioids concurrently with benzodiazepines and muscle relaxants can significantly increase the risk for respiratory depression. Medication regimen is not consistent with updated 2017 chronic pain treatment recommendation guidelines. Patient stated her pain management provider is aware she is using all three classes of medications but is not not prescribed Flexeril since she is able to use her 's. Further workup can be done outpatient for the patient's low back pain complaints and proper medication management. Patient expressed understanding and will cease flexeril use and decrease valium use. Further diagnostic workup to include: EEG PTH Hemoglobin A1c Status: Neurology will continue to follow on an as-needed basis. If the patient is discharged, advised patient to contact our office within 48 hours for a follow-up visit in our office within 14 days.
[2016-10-03] MEDS: LEVOTHYROXINE 75 MCG TAB PO SCH (05:56)
[2016-10-03] MEDS: LEVOTHYROXINE 100 MCG TAB PO SCH (05:56)
[2016-10-03 07:04] LABS: Glucose,Whole Blood 227 mg/dL (75-99)
[2016-10-03 07:34] LABS: Basophils # (A) 0.1 k/uL (0-0.2); Basophils % (A) 1 %; CH 30.1; CHCM 34.1; Eosinophils # (A) 0.2 k/uL (0-0.7); Eosinophils % (A) 2 %; HCT 41.7 % (34.0-46.0); HDW 2.47; Luc # (Auto) 0.24; Luc % (Auto) 2; Lymphocytes # (A) 6.9 k/uL (1.0-4.8); Lymphocytes % (A) 54 %; MCH 29.8 pg (25.0-35.0); MCHC 33.5 g/dL (31.0-37.0); MCV 88.8 fL (80.0-100.0); Monocytes # (A) 0.6 k/uL (0-1.0); Monocytes % (A) 4 %; Neutrophils # (A) 4.8 k/uL (1.3-7.7); Neutrophils % (A) 37 %; RDW 13.3 % (11.5-15.5); WBC 12.8 k/uL (3.8-10.6); WBC (Perox) 11.71
[2016-10-03 07:46] LABS: Anion Gap 12 mmol/L; Blood Urea Nitrogen 10 mg/dL (7-17); Calcium 9.7 mg/dL (8.4-10.2); Carbon Dioxide 22 mmol/L (22-30); Chloride 102 mmol/L (98-107); Glucose 231 mg/dL (74-99); Non-African American GFR(MDRD) >60 (>60 ml/min/1.73 sqM); Potassium 4.4 mmol/L (3.5-5.1); Sodium 136 mmol/L (137-145)
[2016-10-03] MEDS: HYDROcodone/APAP 5-325MG 1 EACH TAB PO SCH (07:56)
[2016-10-03] MEDS: LISINOPRIL 10 MG TAB PO SCH (08:00)
[2016-10-03] MEDS: amLODIPine 10 MG TAB PO SCH (08:00)
[2016-10-03] MEDS: glipiZIDE 10 MG TAB PO SCH (08:00)
[2016-10-03] MEDS: metFORMIN 500 MG TAB PO SCH (08:00)
[2016-10-03] MEDS: INSULIN LISPRO (humaLOG) 300 UNIT/3 ML VIAL SQ SCH ×2 (08:00→12:14)
[2016-10-03] MEDS: DIAZEPAM 5 MG TAB PO SCH (08:01)
[2016-10-03 08:33] LABS: Vitamin B12 682 pg/mL (239-931)
[2016-10-03 09:00] LABS: Manual Review Performed; RBC Morphology Normal
[2016-10-03 11:44] VITALS: BP 89/52; PULSE 85; RESP 17; TEMP 97.6
[2016-10-03 12:02] LABS: Glucose,Whole Blood 259 mg/dL (75-99)
--- NOTE | 2016-10-03 12:04 | ECHOF ---
Referral Reason:syncope MEASUREMENTS -------- HEIGHT: 170.2 cm WEIGHT: 108.9 kg BP: 140/60 RVIDd: 2.8 cm (< 3.3) IVSd: 1.2 cm (0.6 - 1.1) LVIDd: 3.7 cm (3.9 - 5.3) LVPWd: 0.8 cm (0.6 - 1.1) IVSs: 1.3 cm LVIDs: 2.6 cm LVPWs: 0.9 cm LA Diam: 3.4 cm (2.7 - 3.8) Ao Diam: 3.0 cm (2.0 - 3.7) AV Cusp: 1.7 cm (1.5 - 2.6) LA Diam: 3.9 cm (2.7 - 3.8) MV EXCURSION: 14.577 mm (> 18.000) MV EF SLOPE: 65 mm/s (70 - 150) EPSS: 0.3 cm MV E Kevin: 0.54 m/s MV DecT: 287 ms MV A Kevin: 0.63 m/s MV E/A Ratio: 0.85 RAP: 5.00 mmHg RVSP: 17.61 mmHg FINDINGS -------- Sinus rhythm. This was a technically adequate study. There is mild concentric left ventricular hypertrophy. Overall left ventricular systolic function is normal with, an EF between 55 - 60 %. The right ventricle is normal in size. The left atrial size is normal. The right atrial size is normal. The aortic valve is trileaflet, and appears structurally normal. No aortic stenosis or regurgitation. Mild mitral regurgitation is present. Mild tricuspid regurgitation present. There is no evidence of pulmonary hypertension. The right ventricular systolic pressure, as measured by Doppler, is 17.61mmHg. Trace/mild (physiologic) pulmonic regurgitation. The aortic root size is normal. There is no pericardial effusion. CONCLUSIONS -------- 1. There is mild concentric left ventricular hypertrophy. 2. Overall left ventricular systolic function is normal with, an EF between 55 - 60 %. 3. Mild mitral regurgitation is present. 4. Mild tricuspid regurgitation present. 5. There is no evidence of pulmonary hypertension. 6. The right ventricular systolic pressure, as measured by Doppler, is 17.61mmHg. 7. Trace/mild (physiologic) pulmonic regurgitation. 8. The aortic root size is normal. 9. There is no pericardial effusion. SEPARATING MACHINE OPERATOR: Charisma Rivera RDCS
--- NOTE | 2016-10-03 16:02 | P.HPIM ---
History of Present Illness H&P Date: 10/02/16 Chief Complaint: Dizziness and fall Mrs. Roberts is a 46-year-old female with a past medical history of chronic low back pain coming into the hospital with a chief complaint of dizziness and having a fall. Patient states that she has been feeling dizzy for the past couple of weeks as she has been feeling off balance. She states she felt dizzy and had a fall where she hit the left side of her head on the entertainment system. Patient did not have any blurring of vision, headaches. There is no loss of consciousness or no evidence of bleeding. Patient felt nauseous and vomited 10 minutes after having the fall . Her daughter called the EMS after having the fall and she was brought into the hospital for further evaluation. She states that she has history of migraine headaches. Patient takes 2 [place] tablets in the morning and 2 [place]ora tablets in the evening along with Valium for her chronic low back pain. She denies having any fevers chills or rigors. No cough no chest pain no difficulty in breathing. No abdominal pain nausea vomiting or diarrhea. Patient denies having any hematuria or dysuria. Denies having any slurring of speech, no focal weakness. Patient does history of diabetes mellitus and takes insulin at night. She says she is compliant with her insulin and her diabetic medications. . Review of Systems REVIEW OF SYSTEMS: PSYCH: Normal psychiatric exam NEURO:No c/o weakness of the extremties, No facial droop, No speech abnormalities. VASCULAR: Peripheral nervous system within the normal limits no edema HEMATOLOGIC: No history of easy bleeding and bruising . No recent infections . RESPIRATORY: No cough, No SOB, No chest discomfort. IMMUNE: No infections INTEGUMENT: no rashes OPHTHALMOLOGIC: No blurry vision and no eye discharge : No dysuria or hematuria CARPET INSTALLER: No bleeding PV CARDIAC: No chest pain , shortness of breath , paroxysmal nocturnal dyspnea MUSCULOSKELETAL : No Aches or pains in the joints or muscles. GI: No abdominal pain, Nausea or vomiting. No constipation or diarrhea. All 13 review of systems are done and negative except for the ones mentioned in HPI Past Medical History Past Medical History: Diabetes Mellitus, Hypertension, Thyroid Disorder Additional Past Medical History / Comment(s): "DIZZINESS,BALANCE ISSUES FOR PAST FEW MONTHS, FALL. chronic low back pain-SLEEPS IN A RECLINER CHAIR. PAST FX L3 AND L5 History of Any Multi-Drug Resistant Organisms: None Reported Past Surgical History: Back Surgery, Cholecystectomy, Hysterectomy Additional Past Surgical History / Comment(s): PARTIAL HYSTERECTOMY Past Anesthesia/Blood Transfusion Reactions: Previous Problems w/ Anesthesia Additional Past Anesthesia/Blood Transfusion Reaction / Comment(s): "WENT INTO SHOCK WITH EPIDURAL" CLAUSTERPHOBIA Smoking Status: Former smoker - Past Family History Father Family Medical History: No Reported History Mother Additional Family Medical History / Comment(s): PROBLEMS W/ALLERGIES Medications and Allergies Home Medications Medication Instructions Recorded Confirmed Type Lisinopril [Zestril] 10 mg PO DAILY 08/08/14 10/01/16 History glipiZIDE [Glucotrol] 20 mg PO BID 08/08/14 10/01/16 History metFORMIN HCL 1,000 mg PO BID 08/08/14 10/01/16 History Levothyroxine Sodium [Synthroid] 175 mcg PO DAILY 03/15/16 10/01/16 History Insulin Glargine [Lantus] 5 unit SQ HS 10/01/16 10/01/16 History amLODIPine [Norvasc] 10 mg PO DAILY 10/01/16 10/01/16 History Allergies Allergy/AdvReac Type Severity Reaction Status Date / Time bupivacaine AdvReac Unknown Verified 10/01/16 23:33 fentanyl AdvReac Unknown Verified 10/01/16 23:33 Physical Exam Vitals: Vital Signs Temp Pulse Pulse Pulse Pulse Pulse Resp 10/02/16 12:00 98.0 F 86 98 82 18 10/02/16 08:00 97.7 F 83 18 10/02/16 04:00 97.9 F 84 18 10/01/16 23:35 80 18 10/01/16 20:00 88 18 10/01/16 19:32 98 F 88 18 10/01/16 19:00 97.8 F 86 16 10/01/16 17:34 98.2 F 78 18 BP BP BP BP BP Pulse Ox 10/02/16 12:00 119/71 114/74 101/58 94 L 10/02/16 08:00 110/66 97 10/02/16 04:00 109/68 97 10/01/16 23:35 10/01/16 20:00 10/01/16 19:32 108/62 97 10/01/16 19:00 108/71 98 10/01/16 17:34 111/62 99 Intake and Output 10/02/16 10/02/16 10/02/16 06:59 14:59 22:59 Intake Total 700 740 Balance 700 740 Intake: IV 100 0.9 NS @ KVO 100 Oral 600 740 Other: Voiding Method Toilet Toilet # Voids 2 1 Weight 108.862 kg Patient Weight 10/03/16 06:59 Weight 108.862 kg GENERAL EXAM GEN. APPEARANCE: alert, in no apparent distress HEAD EXAM: atraumatic, normocephalic, normal inspection EYE EXAM: normal appearance, PERRL, EOMI. Absent: scleral icterus, conjunctival injection, periorbital swelling ENT EXAM: normal exam, mucous membranes moist NECK EXAM: normal inspection. Absent: tenderness, meningismus, full ROM, lymphadenopathy RESPIRATORY EXAM: normal lung sounds bilaterally. Absent: respiratory distress , wheezes, rales, rhonchi, stridor CARDIOVASCULAR EXAM: regular rate, normal rhythm, normal heart sounds. Absent : systolic murmur, diastolic murmur, rubs, gallop, clicks GI/ABDOMINAL EXAM: soft, normal bowel sounds. Absent: distended, tenderness, guarding, rebound, rigid EXTREMITIES EXAM: normal inspection, full ROM, normal capillary refill. Absent : tenderness, pedal edema, joint swelling, calf tenderness NEUROLOGICAL EXAM: alert, oriented X3, CN II-XII intact, motor sensory deficit PSYCHIATRIC EXAM: normal affect, normal mood SKIN EXAM: warm, dry, intact, normal color. Absent: rash Results CBC & Chem 7: 10/03/16 06:40 10/03/16 06:40 Labs: Abnormal Lab Results - Last 24 Hours (Table) 10/01/16 10/01/16 10/01/16 Range/Units 15:40 15:40 15:40 WBC 13.7 H (3.8-10.6) k/uL RBC 5.41 H (3.80-5.40) m/uL Hgb 16.1 H (11.4-16.0) gm/dL Hct 46.2 H (34.0-46.0) % Lymphocytes # 6.3 H (1.0-4.8) k/uL Glucose 232 H (74-99) mg/dL POC Glucose (mg/dL) (75-99) mg/dL Hemoglobin A1c (4.2-6.1) % Urine Appearance Cloudy H (Clear) Urine Nitrite Positive H (Negative) Ur Leukocyte Esterase Large H (Negative) Urine WBC 69 H (0-5) /hpf Urine Bacteria Few H (None) /hpf Urine Mucus Rare H (None) /hpf Urine Yeast (Budding) Occasional H (None) /hpf 10/01/16 10/01/16 10/02/16 Range/Units 15:40 19:26 06:58 WBC (3.8-10.6) k/uL RBC (3.80-5.40) m/uL Hgb (11.4-16.0) gm/dL Hct (34.0-46.0) % Lymphocytes # (1.0-4.8) k/uL Glucose (74-99) mg/dL POC Glucose (mg/dL) 168 H 198 H (75-99) mg/dL Hemoglobin A1c 9.9 H (4.2-6.1) % Urine Appearance (Clear) Urine Nitrite (Negative) Ur Leukocyte Esterase (Negative) Urine WBC (0-5) /hpf Urine Bacteria (None) /hpf Urine Mucus (None) /hpf Urine Yeast (Budding) (None) /hpf 10/02/16 Range/Units 12:11 WBC (3.8-10.6) k/uL RBC (3.80-5.40) m/uL Hgb (11.4-16.0) gm/dL Hct (34.0-46.0) % Lymphocytes # (1.0-4.8) k/uL Glucose (74-99) mg/dL POC Glucose (mg/dL) 240 H (75-99) mg/dL Hemoglobin A1c (4.2-6.1) % Urine Appearance (Clear) Urine Nitrite (Negative) Ur Leukocyte Esterase (Negative) Urine WBC (0-5) /hpf Urine Bacteria (None) /hpf Urine Mucus (None) /hpf Urine Yeast (Budding) (None) /hpf Assessment and Plan Plan: ASSESSMENT Fall due to dizziness and disequilibrium Type 2 diabetes mellitus Chronic low back pain Obesity with BMI of 37.6 Hypertension Thyroid disorder Urinary tract infection PLAN Patient did get a CT scan of the head and an MRI of the head that have been within normal limits. Unclear why she had the fall. So syncope workup has been initiated. Neurology has been consulted. Echocardiogram and carotid artery Doppler heart ordered. We will continue the patient on ceftriaxone for her UTI. Further recommendations to follow depending on the progress of the patient. Time with Patient: Greater than 30
--- NOTE | 2016-10-03 16:08 | P.DS ---
Providers Date of admission: 10/01/16 17:23 Attending physician: Peña Mallory Consults: 10/01/16 18:36 Consult Physician Routine Consulting Provider: Serenity Oliva Consult Reason/Comments: abnormal gait Do you want consulting provider notified?: Yes Primary care physician: Tj Peace MD Hospital Course: Mrs. Roberts is a 46-year-old female with a past medical history of chronic low back pain coming into the hospital with a chief complaint of dizziness and having a fall. Patient states that she has been feeling dizzy for the past couple of weeks as she has been feeling off balance. She states she felt dizzy and had a fall where she hit the left side of her head on the entertainment system. Patient did not have any blurring of vision, headaches. There is no loss of consciousness or no evidence of bleeding. Patient felt nauseous and vomited 10 minutes after having the fall . Her daughter called the EMS after having the fall and she was brought into the hospital for further evaluation. She states that she has history of migraine headaches. Patient takes 2 [place] tablets in the morning and 2 [place] tablets in the evening along with Valium for her chronic low back pain. Patient had a CAT scan of her pain and also an MRI of the brain within normal limits. Syncope workup with carotid artery Doppler and echocardiogram were also within normal limits. She has been treated with ceftriaxone for UTI in the hospital. Patient's narcotics have been discontinued. Patient's disequilibrium improved significantly. Neurology has been consulted. So most likely she had the dizziness is secondary to polypharmacy use with [place], Valium and Flexeril. She was educated on not taking his medications, as they can cause respiratory depression and also cognition issues and also disequilibrium. She is being discharged home on ciprofloxacin for 5 days. DISCHARGE DIAGNOSIS Fall due to dizziness and disequilibrium - narcotic overuse Type 2 diabetes mellitus Chronic low back pain Obesity with BMI of 37.6 Hypertension Thyroid disorder Urinary tract infection More than 35 minutes spent stewards to discharge of the patient Patient Condition at Discharge: Good Plan - Discharge Summary New Discharge Prescriptions: New Ciprofloxacin HCl [Cipro] 500 mg PO Q12HR #10 tablet Continue metFORMIN HCL 1,000 mg PO BID glipiZIDE [Glucotrol] 20 mg PO BID Lisinopril [Zestril] 10 mg PO DAILY Levothyroxine Sodium [Synthroid] 175 mcg PO DAILY amLODIPine [Norvasc] 10 mg PO DAILY Insulin Glargine [Lantus] 5 unit SQ HS Discontinued Hydrocodone/Acetaminophen [[place] 5-325] 2 tab PO BID Diazepam [Valium] 10 mg PO BID Discharge Medication List Lisinopril [Zestril] 10 mg PO DAILY 08/08/14 [History] glipiZIDE [Glucotrol] 20 mg PO BID 08/08/14 [History] metFORMIN HCL 1,000 mg PO BID 08/08/14 [History] Levothyroxine Sodium [Synthroid] 175 mcg PO DAILY 03/15/16 [History] Insulin Glargine [Lantus] 5 unit SQ HS 10/01/16 [History] amLODIPine [Norvasc] 10 mg PO DAILY 10/01/16 [History] Ciprofloxacin HCl [Cipro] 500 mg PO Q12HR #10 tablet 10/03/16 [Rx] Follow up Appointment(s)/Referral(s): Tj Peace MD [Primary Care Provider] - 1-2 days Patient Instructions/Handouts: Fall Prevention (DC) Discharge Disposition: HOME SELF-CARE
--- NOTE | 2016-10-03 19:22 | P.PN ---
Subjective Principal diagnosis: Abnormal gait/dizziness Patient is a 46-year-old female being followed by neurology for complaints of fall, abnormal gait and dizziness. She states she was at home, sat up from a chair, fell backwards and hit her head on a piece of furniture. Patient states she has been having ongoing dizziness for several months. She has not been seen by a primary care physician due to lack of insurance, but sees a pain management physician in [place] for her low back pain. Patient describes her condition as more disequilibrium than dizziness and states that she feels as if she is on a boat. Patient also expresses routine headache and is nolonger currently experiencing headache. Pain has been experienced and described as throbbing, bilateral, frontal and also does extend posteriorly. She denies loss of consciousness, bleeding. States she became nauseous, vomited 10 minutes after falling. Daughter called EMS the patient was transported to the emergency room. October 03, 2016: Patient is supine in bed, resting in no acute distress, alert and oriented 3. Patient's only remaining complaints are her low back pain. She states that she does not have a headache at this time. On ambulation the patient is no longer experiencing disequilibrium. Objective - Vital Signs Vital signs: Vital Signs Temp 97.6 F 10/03/16 11:42 Pulse 85 10/03/16 12:00 Resp 17 10/03/16 12:00 BP 89/52 10/03/16 11:42 Pulse Ox 96 10/03/16 11:42 Intake & Output 10/03/16 10/03/16 10/04/16 06:59 18:59 06:59 Intake Total 900 360 Balance 900 360 Intake: Oral 900 360 Other: Voiding Method Toilet Toilet # Voids 3 - Exam Constitutional: AOx3, cooperative HEENT: NC/AT, no facial asymmetry is seen. Throat: Supple, no masses Respiratory: No increased work of breathing Cardiac: Regular rate and Rhythm GI: non tender, non distended Musculoskeletal: [employer] Home [employer] strengths are equal bilaterally 5/5, Lower extremity strengths are equal bilaterally at 5/5. Patient does have tenderness to touch and palpation over the lumbar spine. Pain is facet and discogenic in etiology at this time. Neurological: CN II-XII in tact, patient was AOx3, speech and language are normal, no unilateralizing weakness, no seizure activity note on physical exam. Sensation was normal. Integementary: no rash, no erythema Psychiatric: mood and affect appropriate - Labs CBC & Chem 7: 10/03/16 06:40 10/03/16 06:40 Labs: Abnormal Lab Results - Last 24 Hours (Table) 10/02/16 10/03/16 10/03/16 Range/Units 20:17 06:40 06:40 WBC 12.8 H (3.8-10.6) k/uL Lymphocytes # 6.9 H (1.0-4.8) k/uL Sodium 136 L (137-145) mmol/L Creatinine 0.50 L (0.52-1.04) mg/dL Glucose 231 H (74-99) mg/dL POC Glucose (mg/dL) 212 H (75-99) mg/dL 10/03/16 10/03/16 Range/Units 06:53 11:53 WBC (3.8-10.6) k/uL Lymphocytes # (1.0-4.8) k/uL Sodium (137-145) mmol/L Creatinine (0.52-1.04) mg/dL Glucose (74-99) mg/dL POC Glucose (mg/dL) 227 H 259 H (75-99) mg/dL Assessment and Plan (1) Urinary tract infection Status: Acute (2) Abnormal gait Status: Acute (3) Fall Status: Acute (4) Acute exacerbation of chronic low back pain Status: Acute Plan: Altered gait secondary to infectious processUTI Altered gait secondary to medication misuse Hyperostosis frontalis-rule out Xzpashzc-Lprdqqg-Neiat syndrome 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 Patient reports having decreased symptoms since IV antibiotics have been initiated. Patient is approximately 50% return to baseline. Patient also has symptoms and exam findings consistent with gait secondary to misuse of prescription medications. Patient is currently prescribed Soledad 5/325 mg 2 tabs in the morning with 10 mg of Valium and Soledad 5/325 mg 2 tabs in the afternoon/evening with 10 mg of Valium while using her 's Flexeril intermittently while at home. Medications are provided by her pain management provider Dr. Peace in [place]. Patient was also increased on her Valium in the last 2-4 weeks, with the addition of the evening dose, her altered gait increased Significantly in intensity, frequency and duration. Patient had imaging of the brain that included CT of the brain and MRI of the brain. Incidental finding of hyperostosis frontalis was noted On imaging. At this time there must be consideration given to rule out Dcwqjdwv-Invoklr-Seape syndrome given the patient's Current, intermittent and ongoing symptoms that include: middle aged, female, dizziness, vertigo, obesity, nausea, slight facial hirsutism, diabetes/hyperglycemia. Current recommendations and treatment guidelines are to treat symptomatically. The patient may need further workup outpatient with endocrinology based on the results of the PTH and A1C bloodwork once reviewed. Patient's chronic low back pain spans approximately 12 years and the patient has a history of lumbar surgery, most likely discectomy when described by patient at either L4/5 or L5/S1 areas. Patient has not had conservative management in greater than 2 years since losing her insurance. Patient has been treated primarily with pain medication as noted above. Patient was warned and educated that use of narcotic/opioids concurrently with benzodiazepines and muscle relaxants can significantly increase the risk for respiratory depression. Medication regimen is not consistent with updated 2017 chronic pain treatment recommendation guidelines. Patient stated her pain management provider is aware she is using all three classes of medications but is not not prescribed Flexeril since she is able to use her 's. Further workup can be done outpatient for the patient's low back pain complaints and proper medication management. Patient expressed understanding and will cease flexeril use and decrease valium use. Further diagnostic workup to include: EEG: Test performed outpatient if patient is cleared for discharge with the exception of testing. PTH: Taken results not received Hemoglobin A1c:Taken results not received Status: Neurology will continue to follow on an as-needed basis. If the patient is discharged, advised patient to contact our office within 48 hours for a follow-up visit in our office within 14 days.
== END 2016-10-03 15:10 | disposition home or self-care (01) ==
LOC: EC 14:01 → 3OBS 17:23
PROVIDERS: ADMIT Internal Medicine; ATTEND Internal Medicine
DX: N39.0 Urinary tract infection, site not specified (principal); R42 Dizziness and giddiness; I10 Essential (primary) hypertension; G89.29 Other chronic pain; M54.5 Low back pain; R26.2 Difficulty in walking, not elsewhere classified; L68.0 Hirsutism; E66.9 Obesity, unspecified; E07.9 Disorder of thyroid, unspecified; G43.909 Migraine, unspecified, not intractable, without status migrainosus; Y92.009 Unspecified place in unspecified non-institutional (private) residence as the place of occurrence of the external cause; Y93.89 Activity, other specified; W18.30XA Fall on same level, unspecified, initial encounter; E11.65 Type 2 diabetes mellitus with hyperglycemia; M54.2 Cervicalgia; Z87.891 Personal history of nicotine dependence; Z79.899 Other long term (current) drug therapy; Z79.84 Long term (current) use of oral hypoglycemic drugs; Z79.4 Long term (current) use of insulin; Z79.891 Long term (current) use of opiate analgesic; Z88.4 Allergy status to anesthetic agent; Z88.5 Allergy status to narcotic agent; Z68.37 Body mass index [BMI] 37.0-37.9, adult
CPT/HCPCS: 96375 ×3; 96361 ×4; 99285 ×2; 96365; 36415; 93005; 93306; 97116; 97161; 80048 ×2; 84443; 82607; 83036; 84484; 85025 ×2; 81001; 83970; 71020; 93880; 72125; 70450; 70553; G0378 ×3; L0120; J2270; J2405; J0696 ×2; A9577

== ENCOUNTER 2016-11-25 15:32 | Emergency (ER) | payer SELFPAY ==
[2016-11-25 15:49] VITALS: BP 141/83; PULSE 102; RESP 16; TEMP 97.9
--- NOTE | 2016-11-25 15:50 | ED ---
Fall HPI - General Stated Complaint: Fall/back pain Time Seen by Provider: 11/25/16 15:42 Source: patient, RN notes reviewed Mode of arrival: ambulatory Limitations: no limitations - History of Present Illness Initial Comments: 46-year-old female presents emergency Department if worse fall, back pain. Patient states she was at [facility] states that she slipped and fell onto her back. She states that she has low back pain. She does have chronic back pain in which she currently takes [place] for. Patient states that she was taking Valium they took her off because she is having multiple falls. Patient denies any head injury no LOC denies any chest pain or shortness of breath. Patient states that she has no bowel, bladder incontinence or retention. She has increased pain with range of motion and increased pain and general secondary to fall. She states is on her low back and the right side. She denies any lower extremity paresthesias radiating pain. - Related Data Home Medications Medication Instructions Recorded Confirmed Lisinopril [Zestril] 10 mg PO DAILY 08/08/14 10/01/16 glipiZIDE [Glucotrol] 20 mg PO BID 08/08/14 10/01/16 metFORMIN HCL 1,000 mg PO BID 08/08/14 10/01/16 Levothyroxine Sodium [Synthroid] 175 mcg PO DAILY 03/15/16 10/01/16 Insulin Glargine [Lantus] 5 unit SQ HS 10/01/16 10/01/16 amLODIPine [Norvasc] 10 mg PO DAILY 10/01/16 10/01/16 Previous Rx's Medication Instructions Recorded Ciprofloxacin HCl [Cipro] 500 mg PO Q12HR #10 tablet 10/03/16 Allergies Allergy/AdvReac Type Severity Reaction Status Date / Time bupivacaine AdvReac Unknown Verified 11/25/16 15:44 fentanyl AdvReac Unknown Verified 11/25/16 15:44 Review of Systems ROS Statement: Those systems with pertinent positive or pertinent negative responses have been documented in the HPI. ROS Other: All systems not noted in ROS Statement are negative. Past Medical History Past Medical History: Diabetes Mellitus, Hypertension, Thyroid Disorder Additional Past Medical History / Comment(s): "DIZZINESS,BALANCE ISSUES FOR PAST FEW MONTHS, FALL. chronic low back pain-SLEEPS IN A RECLINER CHAIR. PAST FX L3 AND L5 History of Any Multi-Drug Resistant Organisms: None Reported Past Surgical History: Back Surgery, Cholecystectomy, Hysterectomy Additional Past Surgical History / Comment(s): PARTIAL HYSTERECTOMY Past Anesthesia/Blood Transfusion Reactions: Previous Problems w/ Anesthesia Additional Past Anesthesia/Blood Transfusion Reaction / Comment(s): "WENT INTO SHOCK WITH EPIDURAL" CLAUSTERPHOBIA Smoking Status: Former smoker - Past Family History Father Family Medical History: No Reported History Mother Additional Family Medical History / Comment(s): PROBLEMS W/ALLERGIES General Exam General appearance: alert, in no apparent distress Head exam: Present: atraumatic, normocephalic, normal inspection Eye exam: Present: normal appearance, PERRL, EOMI. Absent: scleral icterus, conjunctival injection, periorbital swelling Neck exam: Present: normal inspection. Absent: tenderness, meningismus, lymphadenopathy Respiratory exam: Present: normal lung sounds bilaterally. Absent: respiratory distress, wheezes, rales, rhonchi, stridor, chest wall tenderness Cardiovascular Exam: Present: regular rate, normal rhythm, normal heart sounds. Absent: systolic murmur, diastolic murmur, rubs, gallop, clicks GI/Abdominal exam: Present: soft, normal bowel sounds. Absent: distended, tenderness, guarding, rebound, rigid Extremities exam: Present: other (Bilateral lower extremities neurovascular intact pedal pulses equal bilaterally, equal color equal warmth) Back exam: Present: full ROM (Moderate discomfort with range of motion twisting flexion extension), tenderness (Right low back), paraspinal tenderness. Absent : vertebral tenderness Neurological exam: Present: alert, oriented X3, CN II-XII intact, reflexes normal. Absent: motor sensory deficit Skin exam: Present: warm, dry, intact, normal color. Absent: rash Course Vital Signs 11/25/16 15:44 Temperature 97.9 F Pulse Rate 102 H Respiratory 16 Rate Blood Pressure 141/83 O2 Sat by Pulse 95 Oximetry Medical Decision Making - Medical Decision Making 46-year-old female presented for low back pain of her fall. X-rays show no acute injury. Patient's chronic back pain. She does take [place] currently at home she'll continue this therapy patient with follow-up with PCP. Disposition Clinical Impression: Fall, Back pain Disposition: HOME SELF-CARE Condition: Stable Instructions: Chronic Back Pain (ED) Additional Instructions: Please return to the Emergency Department if symptoms worsen or any other concerns. Referrals: Tj Peace MD [Primary Care Provider] - 1-2 days Time of Disposition: 16:29
--- NOTE | 2016-11-25 16:21 | XR ---
EXAMINATION TYPE: XR pelvis AP view DATE OF EXAM: 11/25/2016 CLINICAL HISTORY: Pelvic and right hip pain since fall injury today. TECHNIQUE: A single AP view of the pelvis is obtained. COMPARISON: CT abdomen pelvis November 21, 2014. FINDINGS: There is no acute fracture/dislocation evident in the pelvis. The hip and sacroiliac join ts appear symmetric and unremarkable. The overlying soft tissue appears unremarkable. IMPRESSION: There is no acute fracture or dislocation in the pelvis.
--- NOTE | 2016-11-25 16:23 | XR ---
EXAMINATION TYPE: XR lumbar spine 2 or 3V DATE OF EXAM: 11/25/2016 CLINICAL HISTORY: Low back pain since fall injury today. TECHNIQUE: Frontal and lateral images of the lumbar spine are obtained. COMPARISON: Lumbar spine x-ray September 19, 2016. FINDINGS: There are 5 lumbar type vertebral bodies identified. The lumbar spine shows satisfactory alignment without evidence of acute fracture or dislocation. There is moderate to severe disc space n arrowing with mild to moderate spurring anteriorly L5-S1 level redemonstrated otherwise vertebral bod y heights and disk space heights are within normal limits. There is surgical change with bilateral la minectomy defects and spinous process resection L5 level redemonstrated. Facet arthropathy lower lumb ar levels is redemonstrated. Cholecystectomy clips are seen in the overlying soft tissue. IMPRESSION: No acute fracture or dislocation is seen in the lumbar spine.
[2016-11-25] MEDS ORDERED: MORPHINE SULFATE 4 MG/ML SYRINGE IM STA (16:29)
== END 2016-11-25 16:45 | disposition home or self-care (01) ==
LOC: EC 15:32
DX: M54.5 Low back pain (principal); E11.9 Type 2 diabetes mellitus without complications; I10 Essential (primary) hypertension; E07.9 Disorder of thyroid, unspecified; Z87.891 Personal history of nicotine dependence; Z79.4 Long term (current) use of insulin; Z79.899 Other long term (current) drug therapy; Z88.8 Allergy status to other drugs, medicaments and biological substances; W01.0XXA Fall on same level from slipping, tripping and stumbling without subsequent striking against object, initial encounter
CPT/HCPCS: 72100; 72170; 99283; 96372; J2270

== ENCOUNTER 2017-05-29 10:05 | Emergency (ER) | payer OTHER ==
[2017-05-29] MEDS ORDERED: IPRATROPIUM-ALBUTEROL 3 ML NEB INHALATION STA (10:49)
--- NOTE | 2017-05-29 10:49 | ED ---
General Adult HPI - General Chief complaint: Upper Respiratory Infection Stated complaint: Cough, chest pain Time Seen by Provider: 05/29/17 10:41 Source: patient, RN notes reviewed Mode of arrival: ambulatory Limitations: no limitations - History of Present Illness Initial comments: Patient 46-year-old female significant past medical history for asthma, who presents emergency room today with a chief complaint of cough congestion over the last 2 weeks. She does admit that to half weeks ago she had a left-sided ear infection and sinusitis. She states she was on antibiotics for 10 days. She states she finishes a week ago. She states her cough congestion has gotten worse. She states that she has been reduction it's green in color. She states she's tried her inhaler at home with little relief the symptoms. Patient does admit that she's had some pain with coughing. Describes it as a pressure. States that this is started 3 days ago. She doesn't that the pain is worse on palpation and with certain movements. Patient denies any other concerns or symptoms. Patient denies any recent fever, chills, shortness of breath, back pain, abdominal pain, nausea or vomiting, numbness or tingling, headaches or visual changes, or any other complaints. - Related Data Home Medications Medication Instructions Recorded Confirmed Lisinopril [Zestril] 10 mg PO DAILY 08/08/14 05/29/17 glipiZIDE [Glucotrol] 20 mg PO BID 08/08/14 05/29/17 metFORMIN HCL 1,000 mg PO BID 08/08/14 05/29/17 Levothyroxine Sodium [Synthroid] 175 mcg PO DAILY 03/15/16 05/29/17 Insulin Glargine [Lantus] 20 unit SQ HS 10/01/16 05/29/17 amLODIPine [Norvasc] 10 mg PO DAILY 10/01/16 05/29/17 Ascorbic Acid [Vitamin C] 1,000 mg PO DAILY 02/22/17 05/29/17 Aspirin [Adult Low Dose Aspirin EC] 81 mg PO DAILY 02/22/17 05/29/17 Cholecalciferol [Vitamin D3] 1,000 unit PO DAILY 02/22/17 05/29/17 Diazepam [Valium] 10 mg PO BID 02/22/17 05/29/17 HYDROcodone/APAP 5-325MG [[place] 2 tab PO TID PRN 02/22/17 05/29/17 5-325] Multivitamins, Thera [Multivitamin 1 tab PO DAILY 02/22/17 05/29/17 (formulary)] Soy Isoflavone 50 mg PO DAILY 02/22/17 05/29/17 Vitamin B Complex 1 cap PO DAILY 02/22/17 05/29/17 Vitamin C/Biotin [Hair, Skin and 1 tab PO DAILY 02/22/17 05/29/17 Nails] Vitamin E 100 unit PO DAILY 02/22/17 05/29/17 Escitalopram [Lexapro] 5 mg PO DAILY 04/12/17 05/29/17 Gabapentin [Neurontin] 600 mg PO TID 04/13/17 05/29/17 Previous Rx's Medication Instructions Recorded Azithromycin [Zithromax Z-pack] 0 mg PO DIRECTED #6 tab 05/29/17 guaiFENesin 400 mg PO Q4-6H #30 tablet 05/29/17 predniSONE 50 mg PO DAILY #5 tab 05/29/17 Allergies Allergy/AdvReac Type Severity Reaction Status Date / Time fentanyl Allergy Rash/Hives Verified 05/29/17 10:51 bupivacaine AdvReac Unknown Verified 05/29/17 10:51 Review of Systems ROS Statement: Those systems with pertinent positive or pertinent negative responses have been documented in the HPI. ROS Other: All systems not noted in ROS Statement are negative. Past Medical History Past Medical History: Diabetes Mellitus, Hypertension, Thyroid Disorder Additional Past Medical History / Comment(s): september 2016"DIZZINESS,BALANCE ISSUES FOR PAST FEW MONTHS, FALL hit lt side of head on entertainment center- it was thought due to combination of meds she was on . chronic low back pain- SLEEPS IN A RECLINER CHAIR. PAST FX L3 AND L5, herniated discs,migraines, UTI'S History of Any Multi-Drug Resistant Organisms: None Reported Past Surgical History: Back Surgery, Cholecystectomy, Hysterectomy Additional Past Surgical History / Comment(s): PARTIAL HYSTERECTOMY Past Anesthesia/Blood Transfusion Reactions: Previous Problems w/ Anesthesia Additional Past Anesthesia/Blood Transfusion Reaction / Comment(s): "WENT INTO SHOCK WITH EPIDURAL" CLAUSTERPHOBIA Past Psychological History: Depression Smoking Status: Former smoker Past Alcohol Use History: Rare Past Drug Use History: None Reported - Past Family History Father Family Medical History: No Reported History Mother Additional Family Medical History / Comment(s): PROBLEMS W/ALLERGIES General Exam - General Exam Comments Initial Comments: General: The patient is awake and alert, in no distress, and does not appear acutely ill. Eye: Pupils are equal, round and reactive to light, extra-ocular movements are intact. No nystagmus. There is normal conjunctiva bilaterally. No signs of icterus. Ears, nose, mouth and throat: There are moist mucous membranes and no oral lesions. Neck: The neck is supple, there is no tenderness or JVD. Cardiovascular: There is a regular rate and rhythm. No murmur, rub or gallop is appreciated. Anterior chest wall tender on palpation reproducing patient's pain. Respiratory: Diminished lung sounds bilaterally. respirations are non-labored, breath sounds are equal. No stridor, rales, or rhonchi. Musculoskeletal: Normal ROM, no tenderness. Strength 5/5. Sensation intact. Pulses equal bilaterally 2+. Neurological: A&O x 3. CN II-XII intact, There are no obvious motor or sensory deficits. Coordination appears grossly intact. Speech is normal. Skin: Skin is warm and dry and no rashes or lesions are noted. Psychiatric: Cooperative, appropriate mood & affect, normal judgment. Limitations: no limitations Course Vital Signs 05/29/17 05/29/17 05/29/17 10:29 10:58 11:08 Temperature 97.7 F Pulse Rate 92 88 Respiratory 18 14 20 Rate Blood Pressure 133/72 O2 Sat by Pulse 98 Oximetry 05/29/17 11:09 Temperature Pulse Rate 84 Respiratory 16 Rate Blood Pressure O2 Sat by Pulse Oximetry Medical Decision Making - Medical Decision Making The patient reexamined at this time shows no signs of distress. Doesn't that she's feeling better after breathing treatment. Chest x-rays negative for any acute abnormality. Results were discussed with the patient. Patient will be placed on azithromycin cover for bronchitis along with steroids. Advised to follow-up the family doctor return here to the emergency room if any symptoms increase or worsen or for any other concerns. Disposition Clinical Impression: Acute bronchitis Disposition: HOME SELF-CARE Condition: Good Instructions: Acute Bronchitis (ED) Additional Instructions: Please use medication as discussed. Please follow-up with family doctor in the next 2 days of symptoms have not improved. Please return to emergency room if the symptoms increase or worsen or for any other concerns. Prescriptions: Azithromycin [Zithromax Z-pack] 0 mg PO DIRECTED #6 tab guaiFENesin 400 mg PO Q4-6H #30 tablet predniSONE 50 mg PO DAILY #5 tab Referrals: Tj Peace MD [Primary Care Provider] - 1-2 days Time of Disposition: 12:00
--- NOTE | 2017-05-29 11:26 | XR ---
EXAMINATION TYPE: XR chest 2V DATE OF EXAM: 05/29/2017 COMPARISON: 04/12/2017 HISTORY: Cough for 4 days TECHNIQUE: Frontal and lateral views of the chest are obtained. FINDINGS: There is no focal air space opacity, pleural effusion, or pneumothorax seen. The cardiac silhouette size is within normal limits. The osseous structures are intact. IMPRESSION: No acute cardiopulmonary process.
[2017-05-29 12:11] VITALS: BP 132/73; PULSE 98; RESP 17; TEMP 98.9
== END 2017-05-29 12:42 | disposition home or self-care (01) ==
LOC: EC 10:05
DX: J20.9 Acute bronchitis, unspecified (principal); E11.9 Type 2 diabetes mellitus without complications; I10 Essential (primary) hypertension; E07.9 Disorder of thyroid, unspecified; F32.9 Major depressive disorder, single episode, unspecified; Z87.891 Personal history of nicotine dependence; Z79.4 Long term (current) use of insulin; Z79.82 Long term (current) use of aspirin; Z79.899 Other long term (current) drug therapy; Z88.4 Allergy status to anesthetic agent; Z88.5 Allergy status to narcotic agent
CPT/HCPCS: 71046; 94640; 99283

== ENCOUNTER 2017-06-19 09:49 | Emergency (ER) | payer OTHER ==
[2017-06-19] MEDS ORDERED: IPRATROPIUM-ALBUTEROL 3 ML NEB INHALATION STA (10:27)
--- NOTE | 2017-06-19 10:30 | ED ---
URI HPI - General Chief Complaint: Upper Respiratory Infection Stated Complaint: cough, congestion, chest/lung pain Time Seen by Provider: 06/19/17 10:15 Source: patient, RN notes reviewed Mode of arrival: ambulatory Limitations: no limitations - History of Present Illness Initial Comments: This is a 47-year-old female history of asthma hypertension diabetes and thyroid disease who does states she recently was diagnosed with bronchitis and was on medication got her somewhat better but now presents with complaints of cough that started yesterday she also is had midsternal chest pain that she describes as heavy and pressure-like 5-08/28 severity is no hoarseness it does get worse with breathing and with movement. She also has shortness of breath. No history of heart disease she is a former smoker who quit in 2004. No known family history of early heart disease. He has had a cough no phlegm. She denies any overt fevers chills or sweats at this time no body aches at this time MD Complaint: cough, nasal congestion, other - Related Data Home Medications Medication Instructions Recorded Confirmed Lisinopril [Zestril] 10 mg PO DAILY 08/08/14 06/19/17 glipiZIDE [Glucotrol] 20 mg PO BID 08/08/14 06/19/17 metFORMIN HCL 1,000 mg PO BID 08/08/14 06/19/17 Levothyroxine Sodium [Synthroid] 175 mcg PO DAILY 03/15/16 06/19/17 Insulin Glargine [Lantus] 20 unit SQ HS 10/01/16 06/19/17 amLODIPine [Norvasc] 10 mg PO DAILY 10/01/16 06/19/17 Ascorbic Acid [Vitamin C] 1,000 mg PO DAILY 02/22/17 06/19/17 Aspirin [Adult Low Dose Aspirin EC] 81 mg PO DAILY 02/22/17 06/19/17 Cholecalciferol [Vitamin D3] 1,000 unit PO DAILY 02/22/17 06/19/17 Diazepam [Valium] 10 mg PO BID 02/22/17 06/19/17 HYDROcodone/APAP 5-325MG [[place] 2 tab PO TID PRN 02/22/17 06/19/17 5-325] Multivitamins, Thera [Multivitamin 1 tab PO DAILY 02/22/17 06/19/17 (formulary)] Soy Isoflavone 50 mg PO DAILY 02/22/17 06/19/17 Vitamin B Complex 1 cap PO DAILY 02/22/17 06/19/17 Vitamin C/Biotin [Hair, Skin and 1 tab PO DAILY 02/22/17 06/19/17 Nails] Vitamin E 100 unit PO DAILY 02/22/17 06/19/17 Escitalopram [Lexapro] 5 mg PO DAILY 04/12/17 06/19/17 Gabapentin [Neurontin] 600 mg PO TID 04/13/17 06/19/17 Previous Rx's Medication Instructions Recorded Albuterol Inhaler [Ventolin Hfa 2 puff INHALATION Q6HR PRN #1 06/19/17 Inhaler] inhaler Ketorolac [Toradol] 10 mg PO Q6HR #20 tab 06/19/17 predniSONE 20 mg PO BID #10 tab 06/19/17 Allergies Allergy/AdvReac Type Severity Reaction Status Date / Time fentanyl Allergy Rash/Hives Verified 06/19/17 10:17 bupivacaine AdvReac Unknown Verified 06/19/17 10:17 Review of Systems ROS Statement: Those systems with pertinent positive or pertinent negative responses have been documented in the HPI. ROS Other: All systems not noted in ROS Statement are negative. Past Medical History Past Medical History: Diabetes Mellitus, Hypertension, Thyroid Disorder Additional Past Medical History / Comment(s): september 2016"DIZZINESS,BALANCE ISSUES FOR PAST FEW MONTHS, FALL [place] of [place]- it was thought due to combination of meds she was on . chronic low back pain- SLEEPS IN A RECLINER CHAIR. PAST FX L3 AND L5, herniated discs,migraines, UTI'S History of Any Multi-Drug Resistant Organisms: None Reported Past Surgical History: Back Surgery, Cholecystectomy, Hysterectomy Additional Past Surgical History / Comment(s): PARTIAL HYSTERECTOMY Past Anesthesia/Blood Transfusion Reactions: Previous Problems w/ Anesthesia Additional Past Anesthesia/Blood Transfusion Reaction / Comment(s): "WENT INTO SHOCK WITH EPIDURAL" CLAUSTERPHOBIA Past Psychological History: Depression Smoking Status: Former smoker Past Alcohol Use History: Rare Past Drug Use History: None Reported - Past Family History Father Family Medical History: No Reported History Mother Additional Family Medical History / Comment(s): PROBLEMS W/ALLERGIES General Exam - General Exam Comments Initial Comments: This is a well-developed well-nourished awake alert oriented 3 female Limitations: no limitations General appearance: alert, in no apparent distress Head exam: Present: atraumatic, normocephalic, normal inspection Eye exam: Present: normal appearance, PERRL, EOMI. Absent: scleral icterus, conjunctival injection, periorbital swelling ENT exam: Present: normal exam, mucous membranes moist Neck exam: Present: normal inspection. Absent: tenderness, meningismus, lymphadenopathy Respiratory exam: Present: normal lung sounds bilaterally, chest wall tenderness (Reproducible tenderness palpation over the right and left costal sternal margin. Palpation does reproduce patient's pain is no step-off or crepitation), decreased breath sounds. Absent: respiratory distress, wheezes, rales, rhonchi, stridor Cardiovascular Exam: Present: regular rate, normal rhythm, normal heart sounds. Absent: systolic murmur, diastolic murmur, rubs, gallop, clicks GI/Abdominal exam: Present: soft, normal bowel sounds. Absent: distended, tenderness, guarding, rebound, rigid Extremities exam: Present: normal inspection, full ROM, normal capillary refill. Absent: tenderness, pedal edema, joint swelling, calf tenderness Back exam: Present: normal inspection Neurological exam: Present: alert, oriented X3, CN II-XII intact Psychiatric exam: Present: normal affect, normal mood Skin exam: Present: warm, dry, intact, normal color. Absent: rash Course Vital Signs 06/19/17 06/19/17 06/19/17 09:53 10:45 10:53 Temperature 97.6 F Pulse Rate 97 93 89 Respiratory 18 24 Rate Blood Pressure 143/78 O2 Sat by Pulse 100 Oximetry 06/19/17 12:16 Temperature Pulse Rate 89 Respiratory 18 Rate Blood Pressure 105/58 O2 Sat by Pulse 98 Oximetry - Reevaluation(s) Reevaluation #1: 06/19/17 11:49 Patient states she is feeling somewhat improved still coughing to get IV steroids IV magnesium she expected her blood sugar to be elevated. She will be getting fluids. Medical Decision Making - Medical Decision Making The patient is feeling improved the presentation is consistent with chest wall pain and hyperglycemia the patient will be discharged on appropriate medication. - Lab Data Result diagrams: 06/19/17 10:40 06/19/17 10:40 Lab Results 06/19/17 06/19/17 06/19/17 Range/Units 10:40 10:40 10:40 WBC 12.3 H (3.8-10.6) k/uL RBC 5.07 (3.80-5.40) m/uL Hgb 15.3 (11.4-16.0) gm/dL Hct 43.4 (34.0-46.0) % MCV 85.6 (80.0-100.0) fL MCH 30.1 (25.0-35.0) pg MCHC 35.2 (31.0-37.0) g/dL RDW 13.2 (11.5-15.5) % Plt Count 315 (150-450) k/uL Neutrophils % (Manual) 39 % Lymphocytes % (Manual) 54 % Monocytes % (Manual) 4 % Eosinophils % (Manual) 3 % Neutrophils # (Manual) 4.80 (1.3-7.7) k/uL Lymphocytes # (Manual) 6.64 H (1.0-4.8) k/uL Monocytes # (Manual) 0.49 (0-1.0) k/uL Eosinophils # (Manual) 0.37 (0-0.7) k/uL Nucleated RBCs 0 (0-0) /100 WBC Manual Slide Review Performed PT (9.0-12.0) sec INR (<1.2) APTT (22.0-30.0) sec D-Dimer (<0.60) mg/L FEU Sodium 137 (137-145) mmol/L Potassium 4.6 (3.5-5.1) mmol/L Chloride 97 L (98-107) mmol/L Carbon Dioxide 23 (22-30) mmol/L Anion Gap 17 mmol/L BUN 12 (7-17) mg/dL Creatinine 0.46 L (0.52-1.04) mg/dL Est GFR (CKD-EPI)AfAm >90 (>60 ml/min/1.73 sqM) Est GFR (CKD-EPI)NonAf >90 (>60 ml/min/1.73 sqM) Glucose 415 H (74-99) mg/dL Calcium 9.8 (8.4-10.2) mg/dL Magnesium 1.6 (1.6-2.3) mg/dL Total Bilirubin 0.4 (0.2-1.3) mg/dL AST 20 (14-36) U/L ALT 33 (9-52) U/L Alkaline Phosphatase 148 H (38-126) U/L Total Creatine Kinase 46 (30-135) U/L CK-MB (CK-2) 0.7 (0.0-2.4) ng/mL CK-MB (CK-2) Rel Index 1.5 Troponin I <0.012 (0.000-0.034) ng/mL NT-Pro-B Natriuret Pep pg/mL Total Protein 7.1 (6.3-8.2) g/dL Albumin 4.2 (3.5-5.0) g/dL Influenza Type A RNA (Not Detectd) Influenza Type B (PCR) (Not Detectd) 06/19/17 06/19/17 06/19/17 Range/Units 10:40 10:40 10:40 WBC (3.8-10.6) k/uL RBC (3.80-5.40) m/uL Hgb (11.4-16.0) gm/dL Hct (34.0-46.0) % MCV (80.0-100.0) fL MCH (25.0-35.0) pg MCHC (31.0-37.0) g/dL RDW (11.5-15.5) % Plt Count (150-450) k/uL Neutrophils % (Manual) % Lymphocytes % (Manual) % Monocytes % (Manual) % Eosinophils % (Manual) % Neutrophils # (Manual) (1.3-7.7) k/uL Lymphocytes # (Manual) (1.0-4.8) k/uL Monocytes # (Manual) (0-1.0) k/uL Eosinophils # (Manual) (0-0.7) k/uL Nucleated RBCs (0-0) /100 WBC Manual Slide Review PT 9.4 (9.0-12.0) sec INR 0.9 (<1.2) APTT 22.3 (22.0-30.0) sec D-Dimer 0.52 (<0.60) mg/L FEU Sodium (137-145) mmol/L Potassium (3.5-5.1) mmol/L Chloride (98-107) mmol/L Carbon Dioxide (22-30) mmol/L Anion Gap mmol/L BUN (7-17) mg/dL Creatinine (0.52-1.04) mg/dL Est GFR (CKD-EPI)AfAm (>60 ml/min/1.73 sqM) Est GFR (CKD-EPI)NonAf (>60 ml/min/1.73 sqM) Glucose (74-99) mg/dL Calcium (8.4-10.2) mg/dL Magnesium (1.6-2.3) mg/dL Total Bilirubin (0.2-1.3) mg/dL AST (14-36) U/L ALT (9-52) U/L Alkaline Phosphatase (38-126) U/L Total Creatine Kinase (30-135) U/L CK-MB (CK-2) (0.0-2.4) ng/mL CK-MB (CK-2) Rel Index Troponin I (0.000-0.034) ng/mL NT-Pro-B Natriuret Pep 25 pg/mL Total Protein (6.3-8.2) g/dL Albumin (3.5-5.0) g/dL Influenza Type A RNA Not Detected (Not Detectd) Influenza Type B (PCR) Not Detected (Not Detectd) - EKG Data -: EKG Interpreted by [place] ([place] [address] QRS duration 76 QT since QTC 386/487 nonspec) EKG shows normal: sinus rhythm - Radiology Data Radiology results: report reviewed (I did review the imaging and report no acute findings.), image reviewed Disposition Clinical Impression: Costochondritis, acute, Bronchospasm, Hyperglycemia, Dehydration Disposition: HOME SELF-CARE Condition: Good Instructions: Dehydration (ED), Costochondritis (ED), Bronchospasm (ED) Prescriptions: Albuterol Inhaler [Ventolin Hfa Inhaler] 2 puff INHALATION Q6HR PRN #1 inhaler PRN Reason: Dyspnea Ketorolac [Toradol] 10 mg PO Q6HR #20 tab predniSONE 20 mg PO BID #10 tab Referrals: Tj Peace MD [Primary Care Provider] - 1-2 days
[2017-06-19] MEDS ORDERED: KETOROLAC 30 MG/ML 1 ML VIAL IVP STA (10:31)
[2017-06-19 10:52] LABS: HCT 43.4 % (34.0-46.0); HGB 15.3 gm/dL (11.4-16.0); MCH 30.1 pg (25.0-35.0); MCHC 35.2 g/dL (31.0-37.0); MCV 85.6 fL (80.0-100.0); Mean Platelet Volume 7.7; Platelet Count 315 k/uL (150-450); RBC 5.07 m/uL (3.80-5.40); RDW 13.2 % (11.5-15.5); WBC 12.3 k/uL (3.8-10.6)
[2017-06-19 10:54] VITALS: PULSE 89
[2017-06-19 11:03] LABS: ALT 33 U/L (9-52); AST 20 U/L (14-36); Albumin 4.2 g/dL (3.5-5.0); Alkaline Phosphatase 148 U/L (38-126); Anion Gap 17 mmol/L; Blood Urea Nitrogen 12 mg/dL (7-17); Calcium 9.8 mg/dL (8.4-10.2); Carbon Dioxide 23 mmol/L (22-30); Chloride 97 mmol/L (98-107); Magnesium 1.6 mg/dL (1.6-2.3); Potassium 4.6 mmol/L (3.5-5.1); Sodium 137 mmol/L (137-145); Total Bilirubin 0.4 mg/dL (0.2-1.3); Total Protein 7.1 g/dL (6.3-8.2)
[2017-06-19 11:05] LABS: Eosinophils # (M) 0.37 k/uL (0-0.7); Lymphocytes # (M) 6.64 k/uL (1.0-4.8); Monocytes # (M) 0.49 k/uL (0-1.0); Neutrophils % (M) 39 %; Nucleated Red Blood Cells 0 /100 WBC (0-0); Total Cells Counted 100
[2017-06-19 11:10] LABS: Creatine Kinase 46 U/L (30-135)
[2017-06-19 11:14] LABS: Glucose 415 mg/dL (74-99)
--- NOTE | 2017-06-19 11:14 | XR ---
EXAMINATION TYPE: XR chest 2V DATE OF EXAM: 06/19/2017 HISTORY: Chest Pain. REFERENCE: Previous study dated 05/29/2017. FINDINGS: The study is mildly rotated. Allowing for this the lungs are clear. Pleural spaces are myriam r. The heart is not enlarged. IMPRESSION: NO ACUTE INTRATHORACIC ABNORMALITY.
[2017-06-19 11:23] LABS: Creatine Kinase MB 0.7 ng/mL (0.0-2.4); Troponin I <0.012 ng/mL (0.000-0.034)
[2017-06-19 11:25] LABS: D-Dimer 0.52 mg/L FEU (<0.60); INR 0.9 (<1.2); Partial Thromboplastin Time 22.3 sec (22.0-30.0); Prothrombin Time 9.4 sec (9.0-12.0)
[2017-06-19] MEDS ORDERED: SODIUM CHLORIDE 0.9% 1,000 ML IV STA (11:41)
[2017-06-19] MEDS ORDERED: MAGNESIUM SULFATE-D5W PMX 1 GM in DEXTROSE/WATER 1 100ML.BAG IVPB ONE (11:49)
[2017-06-19] MEDS ORDERED: methylPREDNISolone SOD SUCCI 125 MG/2 ML VIAL IV STA (11:49)
[2017-06-19] MEDS ORDERED: INSULIN REGULAR 100 UNIT/ML VIAL IV ONE (11:50)
[2017-06-19 12:45] LABS: Glucose,Whole Blood 416 mg/dL (75-99)
[2017-06-19 12:49] VITALS: TEMP 98.5
[2017-06-19 12:56] VITALS: BP 100/51; RESP 16
== END 2017-06-19 13:15 | disposition home or self-care (01) ==
LOC: EC 09:49
DX: M94.0 Chondrocostal junction syndrome [Tietze] (principal); J98.01 Acute bronchospasm; E11.65 Type 2 diabetes mellitus with hyperglycemia; E86.0 Dehydration; I10 Essential (primary) hypertension; E07.9 Disorder of thyroid, unspecified; F32.9 Major depressive disorder, single episode, unspecified; Z88.5 Allergy status to narcotic agent; Z88.4 Allergy status to anesthetic agent; Z79.4 Long term (current) use of insulin; Z79.82 Long term (current) use of aspirin; Z79.84 Long term (current) use of oral hypoglycemic drugs; Z79.899 Other long term (current) drug therapy; Z87.891 Personal history of nicotine dependence
CPT/HCPCS: 99284; 96365; 96375 ×2; 36415; 94640; 93005; 85379; 83880; 80053; 82550; 82553; 83735; 84484; 85025; 85610; 85730; 87502; 71046; J2930; J1885; J3475

== ENCOUNTER 2017-06-23 21:56 | Inpatient (IN) | payer OTHER ==
[2017-06-23] MEDS ORDERED: SODIUM CHLORIDE 0.9% 1,000 ML IV STA (22:07)
[2017-06-23] MEDS ORDERED: SODIUM CHLORIDE 0.9% 500 ML IV STA (22:07)
[2017-06-23] MEDS ORDERED: IPRATROPIUM-ALBUTEROL 3 ML NEB INHALATION STA (22:08)
[2017-06-23] MEDS ORDERED: RX INFO: IV CONTRAST WAS GIVEN 1 EACH MISC MISCELLANE PRN (22:08)
[2017-06-23] MEDS ORDERED: ACETAMINOPHEN IV (For NPO) 1,000 MG in EMPTY BAG 1 BAG IVPB STA (22:30)
[2017-06-23] MEDS ORDERED: KETOROLAC 30 MG/ML 1 ML VIAL IVP STA (22:30)
[2017-06-23 22:46] LABS: Basophils # (A) 0.1 k/uL (0-0.2); Basophils % (A) 0 %; Eosinophils # (A) 0.1 k/uL (0-0.7); Eosinophils % (A) 1 %; HCT 44.4 % (34.0-46.0); HGB 14.4 gm/dL (11.4-16.0); Lymphocytes # (A) 7.2 k/uL (1.0-4.8); Lymphocytes % (A) 34 %; MCH 28.7 pg (25.0-35.0); MCHC 32.5 g/dL (31.0-37.0); MCV 88.1 fL (80.0-100.0); Mean Platelet Volume 8.6; Monocytes # (A) 1.2 k/uL (0-1.0); Monocytes % (A) 5 %; Neutrophils # (A) 12.6 k/uL (1.3-7.7); Neutrophils % (A) 59 %; Platelet Count 277 k/uL (150-450); RBC 5.04 m/uL (3.80-5.40); RDW 12.9 % (11.5-15.5); WBC 21.5 k/uL (3.8-10.6)
[2017-06-23 22:58] LABS: ALT 22 U/L (9-52); AST 19 U/L (14-36); Albumin 4.1 g/dL (3.5-5.0); Alkaline Phosphatase 89 U/L (38-126); Anion Gap 25 mmol/L; Blood Urea Nitrogen 19 mg/dL (7-17); Calcium 9.7 mg/dL (8.4-10.2); Carbon Dioxide 19 mmol/L (22-30); Chloride 93 mmol/L (98-107); Glucose 419 mg/dL (74-99); Magnesium 1.9 mg/dL (1.6-2.3); Potassium 3.4 mmol/L (3.5-5.1); Sodium 137 mmol/L (137-145); Total Bilirubin 0.7 mg/dL (0.2-1.3); Total Protein 7.4 g/dL (6.3-8.2)
[2017-06-23 23:01] LABS: D-Dimer 0.46 mg/L FEU (<0.60); INR 0.9 (<1.2); Partial Thromboplastin Time 22.2 sec (22.0-30.0); Prothrombin Time 9.4 sec (9.0-12.0)
--- NOTE | 2017-06-23 23:03 | ED ---
General Adult HPI - General Chief complaint: Shortness of Breath Stated complaint: SOB Time Seen by Provider: 06/23/17 22:07 Source: patient, RN notes reviewed, old records reviewed Mode of arrival: EMS Limitations: no limitations - History of Present Illness Initial comments: This is a 47-year-old female to the ER for evaluation. Patient states she does not feel well. Patient states shortness of breath increased since her last hospitalization which was 4 days ago. She has mild chest pain with significant thirst and hunger, admits to decreased appetite, decreased oral intake. Elevated blood sugar. Patient does also admit to fever. No travel history, no recent hospitalizations - Related Data Home Medications Medication Instructions Recorded Confirmed Lisinopril [Zestril] 10 mg PO DAILY 08/08/14 06/23/17 glipiZIDE [Glucotrol] 20 mg PO BID 08/08/14 06/23/17 metFORMIN HCL 1,000 mg PO BID 08/08/14 06/23/17 Levothyroxine Sodium [Synthroid] 175 mcg PO DAILY 03/15/16 06/23/17 Insulin Glargine [Lantus] 20 unit SQ HS 10/01/16 06/23/17 amLODIPine [Norvasc] 10 mg PO DAILY 10/01/16 06/23/17 Ascorbic Acid [Vitamin C] 1,000 mg PO DAILY 02/22/17 06/23/17 Aspirin [Adult Low Dose Aspirin EC] 81 mg PO DAILY 02/22/17 06/23/17 Cholecalciferol [Vitamin D3] 1,000 unit PO DAILY 02/22/17 06/23/17 Diazepam [Valium] 10 mg PO BID 02/22/17 06/23/17 HYDROcodone/APAP 5-325MG [[place] 2 tab PO TID PRN 02/22/17 06/23/17 5-325] Multivitamins, Thera [Multivitamin 1 tab PO DAILY 02/22/17 06/23/17 (formulary)] Soy Isoflavone 50 mg PO DAILY 02/22/17 06/23/17 Vitamin B Complex 1 cap PO DAILY 02/22/17 06/23/17 Vitamin C/Biotin [Hair, Skin and 1 tab PO DAILY 02/22/17 06/23/17 Nails] Vitamin E 100 unit PO DAILY 02/22/17 06/23/17 Escitalopram [Lexapro] 5 mg PO DAILY 04/12/17 06/23/17 Gabapentin [Neurontin] 600 mg PO TID 04/13/17 06/23/17 Previous Rx's Medication Instructions Recorded Albuterol Inhaler [Ventolin Hfa 2 puff INHALATION Q6HR PRN #1 06/19/17 Inhaler] inhaler Ketorolac [Toradol] 10 mg PO Q6HR #20 tab 06/19/17 predniSONE 20 mg PO BID #10 tab 06/19/17 Allergies Allergy/AdvReac Type Severity Reaction Status Date / Time fentanyl Allergy Rash/Hives Verified 06/23/17 22:36 bupivacaine AdvReac Unknown Verified 06/23/17 22:36 Review of Systems ROS Statement: Those systems with pertinent positive or pertinent negative responses have been documented in the HPI. ROS Other: All systems not noted in ROS Statement are negative. Past Medical History Past Medical History: Diabetes Mellitus, Hypertension, Thyroid Disorder Additional Past Medical History / Comment(s): september 2016"DIZZINESS,BALANCE ISSUES FOR PAST FEW MONTHS, [place]- it was thought due to combination of meds she was on . chronic low back pain- SLEEPS IN A RECLINER CHAIR. PAST FX L3 AND L5, herniated discs,migraines, UTI'S History of Any Multi-Drug Resistant Organisms: None Reported Past Surgical History: Back Surgery, Cholecystectomy, Hysterectomy Additional Past Surgical History / Comment(s): PARTIAL HYSTERECTOMY Past Anesthesia/Blood Transfusion Reactions: Previous Problems w/ Anesthesia Additional Past Anesthesia/Blood Transfusion Reaction / Comment(s): "WENT INTO SHOCK WITH EPIDURAL" CLAUSTERPHOBIA Past Psychological History: Depression Smoking Status: Former smoker Past Alcohol Use History: Rare Past Drug Use History: None Reported - Past Family History Father Family Medical History: No Reported History Mother Additional Family Medical History / Comment(s): PROBLEMS W/ALLERGIES General Exam Limitations: no limitations General appearance: alert, in no apparent distress, anxious, in distress, obese Head exam: Present: atraumatic, normocephalic, normal inspection Eye exam: Present: normal appearance, PERRL, EOMI. Absent: scleral icterus, conjunctival injection, periorbital swelling ENT exam: Present: normal exam, mucous membranes moist Neck exam: Present: normal inspection. Absent: tenderness, meningismus, lymphadenopathy Respiratory exam: Present: respiratory distress, wheezes. Absent: rales, rhonchi, stridor Cardiovascular Exam: Present: normal rhythm, tachycardia, normal heart sounds. Absent: systolic murmur, diastolic murmur, rubs, gallop, clicks GI/Abdominal exam: Present: soft, normal bowel sounds. Absent: distended, tenderness, guarding, rebound, rigid Extremities exam: Present: normal inspection, full ROM, normal capillary refill. Absent: tenderness, pedal edema, joint swelling, calf tenderness Back exam: Present: normal inspection Neurological exam: Present: alert, oriented X3, CN II-XII intact Psychiatric exam: Present: normal affect, normal mood Skin exam: Present: warm, dry, intact, normal color. Absent: rash Course Vital Signs 06/23/17 06/23/17 06/23/17 22:00 23:01 23:02 Temperature 100.8 F H 100.2 F H Pulse Rate 133 H 112 H 117 H Respiratory 22 18 20 Rate Blood Pressure 133/60 117/57 O2 Sat by Pulse 92 L 94 L Oximetry 06/23/17 06/24/17 06/24/17 23:24 00:02 00:45 Temperature Pulse Rate 120 H 116 H 114 H Respiratory 20 20 18 Rate Blood Pressure 132/58 O2 Sat by Pulse Oximetry 06/24/17 06/24/17 00:47 01:00 Temperature 100.1 F H Pulse Rate 109 H 129 H Respiratory 20 20 Rate Blood Pressure 105/55 O2 Sat by Pulse 93 L Oximetry - Reevaluation(s) Reevaluation #1: 06/23/17 23:02 Patient does have improvement in breathing treatments, fever control, IV resuscitation EKG Findings - EKG Comments: EKG Findings:: EKG shows sinus tachycardia rate 133, MT 140, QRS 74, QTC 452 Medical Decision Making - Medical Decision Making 47-year-old female to the ER for evaluation of shortness of breath, persistent despite outpatient treatment. Second ER visit this week. Patient's symptoms are worsening with positive fever. Will admit for hemodynamic and cardiopulmonary support - Lab Data Result diagrams: 06/23/17 22:20 06/23/17 22:20 Lab Results 06/23/17 06/23/17 06/23/17 Range/Units 22:20 22:20 22:20 WBC 21.5 H (3.8-10.6) k/uL RBC 5.04 (3.80-5.40) m/uL Hgb 14.4 (11.4-16.0) gm/dL Hct 44.4 (34.0-46.0) % MCV 88.1 (80.0-100.0) fL MCH 28.7 (25.0-35.0) pg MCHC 32.5 (31.0-37.0) g/dL RDW 12.9 (11.5-15.5) % Plt Count 277 (150-450) k/uL Neutrophils % 59 % Lymphocytes % 34 % Monocytes % 5 % Eosinophils % 1 % Basophils % 0 % Neutrophils # 12.6 H (1.3-7.7) k/uL Lymphocytes # 7.2 H (1.0-4.8) k/uL Monocytes # 1.2 H (0-1.0) k/uL Eosinophils # 0.1 (0-0.7) k/uL Basophils # 0.1 (0-0.2) k/uL PT (9.0-12.0) sec INR (<1.2) APTT (22.0-30.0) sec D-Dimer (<0.60) mg/L FEU Sodium 137 (137-145) mmol/L Potassium 3.4 L (3.5-5.1) mmol/L Chloride 93 L (98-107) mmol/L Carbon Dioxide 19 L (22-30) mmol/L Anion Gap 25 mmol/L BUN 19 H (7-17) mg/dL Creatinine 0.70 (0.52-1.04) mg/dL Est GFR (CKD-EPI)AfAm >90 (>60 ml/min/1.73 sqM) Est GFR (CKD-EPI)NonAf >90 (>60 ml/min/1.73 sqM) Glucose 419 H (74-99) mg/dL Calcium 9.7 (8.4-10.2) mg/dL Magnesium 1.9 (1.6-2.3) mg/dL Total Bilirubin 0.7 (0.2-1.3) mg/dL AST 19 (14-36) U/L ALT 22 (9-52) U/L Alkaline Phosphatase 89 (38-126) U/L Total Creatine Kinase 78 (30-135) U/L CK-MB (CK-2) 0.6 (0.0-2.4) ng/mL CK-MB (CK-2) Rel Index 0.8 Troponin I <0.012 (0.000-0.034) ng/mL NT-Pro-B Natriuret Pep pg/mL Total Protein 7.4 (6.3-8.2) g/dL Albumin 4.1 (3.5-5.0) g/dL 06/23/17 06/23/17 Range/Units 22:20 22:20 WBC (3.8-10.6) k/uL RBC (3.80-5.40) m/uL Hgb (11.4-16.0) gm/dL Hct (34.0-46.0) % MCV (80.0-100.0) fL MCH (25.0-35.0) pg MCHC (31.0-37.0) g/dL RDW (11.5-15.5) % Plt Count (150-450) k/uL Neutrophils % % Lymphocytes % % Monocytes % % Eosinophils % % Basophils % % Neutrophils # (1.3-7.7) k/uL Lymphocytes # (1.0-4.8) k/uL Monocytes # (0-1.0) k/uL Eosinophils # (0-0.7) k/uL Basophils # (0-0.2) k/uL PT 9.4 (9.0-12.0) sec INR 0.9 (<1.2) APTT 22.2 (22.0-30.0) sec D-Dimer 0.46 (<0.60) mg/L FEU Sodium (137-145) mmol/L Potassium (3.5-5.1) mmol/L Chloride (98-107) mmol/L Carbon Dioxide (22-30) mmol/L Anion Gap mmol/L BUN (7-17) mg/dL Creatinine (0.52-1.04) mg/dL Est GFR (CKD-EPI)AfAm (>60 ml/min/1.73 sqM) Est GFR (CKD-EPI)NonAf (>60 ml/min/1.73 sqM) Glucose (74-99) mg/dL Calcium (8.4-10.2) mg/dL Magnesium (1.6-2.3) mg/dL Total Bilirubin (0.2-1.3) mg/dL AST (14-36) U/L ALT (9-52) U/L Alkaline Phosphatase (38-126) U/L Total Creatine Kinase (30-135) U/L CK-MB (CK-2) (0.0-2.4) ng/mL CK-MB (CK-2) Rel Index Troponin I (0.000-0.034) ng/mL NT-Pro-B Natriuret Pep 45 pg/mL Total Protein (6.3-8.2) g/dL Albumin (3.5-5.0) g/dL - Radiology Data Radiology results: report reviewed (CTA chest negative), image reviewed Disposition Clinical Impression: Acute bronchitis, Diabetes, Bronchospasm, Fever, Hypoxia, Failure of outpatient treatment Disposition: ADMITTED IP TO THIS [facility] Condition: Fair Referrals: Tj Peace MD [Primary Care Provider] - 1-2 days
[2017-06-23 23:08] LABS: Creatine Kinase 78 U/L (30-135)
[2017-06-23 23:21] LABS: Creatine Kinase MB 0.6 ng/mL (0.0-2.4); Troponin I <0.012 ng/mL (0.000-0.034)
--- NOTE | 2017-06-23 23:54 | CT ---
EXAMINATION TYPE: CT angio chest DATE OF EXAM: 06/23/2017 11:37 PM COMPARISON: NONE HISTORY: No prev. on synapse. pt. has hx. of asthma and is presented to the ER with SOB. 55 ML of iso kriss 370 was injected and [address] DLP: 628.50 mGycm Automated exposure control for dose reduction was used. CONTRAST: CTA scan of the thorax is performed with IV Contrast, patient injected with 55 mL of Isovue 370, pulm onary embolism protocol. There are 3-D post processed images.. FINDINGS: The lungs are clear of consolidation. There is no evidence of a pulmonary mass. The heart size is nor mal. There is no pericardial effusion. There is suboptimal contrast density in the pulmonary arteries. I see no filling defects. There is no evidence of aortic aneurysm or dissection. Thoracic aorta appears normal. There is no mediastinal ad enopathy. The bony thorax is intact. IMPRESSION: NEGATIVE CT ANGIOGRAM OF THE CHEST. NO EVIDENCE OF PULMONARY EMBOLISM.
[2017-06-24] MEDS ORDERED: ALBUTEROL NEBULIZED 2.5 MG/3 ML INHALATION STA (00:31)
[2017-06-24] MEDS ORDERED: methylPREDNISolone SOD SUCCI 125 MG/2 ML VIAL IV STA (00:31)
[2017-06-24] MEDS ORDERED: SODIUM CHLORIDE 0.9% 500 ML IV STA (00:32)
[2017-06-24] MEDS ORDERED: SODIUM CHLORIDE 0.9% 1,000 ML IV STA (00:32)
[2017-06-24] MEDS ORDERED: ACETAMINOPHEN TAB 325 MG TAB PO PRN (01:04)
[2017-06-24 01:17] LABS: Appearance,Urine Clear (Clear); Bilirubin,Urine Negative (Negative); Blood,Urine Negative (Negative); Color,Urine Yellow; Glucose,Urine (UA) 4+ (Negative); Leukocyte Esterase,Urine Negative (Negative); Nitrite,Urine Negative (Negative); Protein,Urine Trace (Negative); Specific Gravity,Urine 1.025 (1.001-1.035); Urobilinogen,Urine <2.0 mg/dL (<2.0)
[2017-06-24 01:42] LABS: Ketones,Urine 3+ (Negative)
[2017-06-24] MEDS ORDERED: SODIUM CHLORIDE 0.9% 1,000 ML IV ONE (01:47)
[2017-06-24] MEDS ORDERED: POTASSIUM CHLORIDE ER 20 MEQ TAB.ER PO STA (01:48)
[2017-06-24 02:11] LABS: Glucose,Whole Blood >600 mg/dL (75-99)
[2017-06-24 02:26] VITALS: BMI 37.5
[2017-06-24 02:52] LABS: Anion Gap 24 mmol/L; Blood Urea Nitrogen 19 mg/dL (7-17); Carbon Dioxide 12 mmol/L (22-30); Chloride 99 mmol/L (98-107); Phosphorus 4.9 mg/dL (2.5-4.5); Sodium 135 mmol/L (137-145)
[2017-06-24 03:02] LABS: Glucose 614 mg/dL (74-99)
[2017-06-24] MEDS: POTASSIUM CHLORIDE ER 20 MEQ TAB.ER PO SCH ×2 (03:07→04:25)
[2017-06-24] MEDS: INSULIN REGULAR 100 UNIT in SODIUM CHLORIDE 0.9% 100 ML IV SCH ×3 (03:08→13:38)
[2017-06-24] MEDS: SODIUM CHLORIDE 0.9% 1,000 ML IV SCH ×5 (03:13→22:13)
[2017-06-24 04:20] LABS: Glucose,Whole Blood 485 mg/dL (75-99)
[2017-06-24 04:47] LABS: Glucose,Whole Blood 459 mg/dL (75-99)
[2017-06-24 05:21] LABS: Glucose,Whole Blood 379 mg/dL (75-99)
[2017-06-24] MEDS ORDERED: methylPREDNISolone SOD SUCCI 125 MG/2 ML VIAL IV SCH (06:00)
[2017-06-24 06:08] LABS: Glucose,Whole Blood 327 mg/dL (75-99)
[2017-06-24 06:46] LABS: Glucose,Whole Blood 288 mg/dL (75-99)
[2017-06-24 07:00] LABS: Glucose,Whole Blood 275 mg/dL (75-99)
[2017-06-24] MEDS: IPRATROPIUM-ALBUTEROL 3 ML NEB INHALATION SCH ×5 (07:18→21:18)
[2017-06-24] MEDS: D5-0.45% NACL WITH KCL 20MEQ/L 1,000 ML IV SCH ×2 (07:21→22:14)
[2017-06-24 07:28] LABS: Anion Gap 17 mmol/L; Blood Urea Nitrogen 18 mg/dL (7-17); Carbon Dioxide 18 mmol/L (22-30); Chloride 101 mmol/L (98-107); Glucose 291 mg/dL (74-99); Phosphorus 2.7 mg/dL (2.5-4.5); Sodium 136 mmol/L (137-145)
[2017-06-24] MEDS: ENOXAPARIN 40 MG/0.4 ML SYRINGE SQ SCH (07:28)
[2017-06-24] MEDS ORDERED: INSULIN ASPART 100 UNIT/ML 1 ML 10 ML VIAL SQ SCH (07:30)
[2017-06-24 07:31] LABS: Glucose,Whole Blood 261 mg/dL (75-99)
[2017-06-24 08:13] LABS: Glucose,Whole Blood 283 mg/dL (75-99)
[2017-06-24 08:49] LABS: Glucose,Whole Blood 290 mg/dL (75-99)
[2017-06-24 09:19] LABS: Glucose,Whole Blood 277 mg/dL (75-99)
[2017-06-24 09:52] LABS: Glucose,Whole Blood 280 mg/dL (75-99)
[2017-06-24 10:18] LABS: Glucose,Whole Blood 286 mg/dL (75-99)
[2017-06-24 10:53] LABS: Glucose,Whole Blood 259 mg/dL (75-99)
[2017-06-24 11:21] LABS: Glucose,Whole Blood 251 mg/dL (75-99)
[2017-06-24 11:43] LABS: Glucose,Whole Blood 273 mg/dL (75-99)
--- NOTE | 2017-06-24 12:00 | P.HPIM ---
History of Present Illness Patient is a pleasant 47-year-old female came in with bronchitis and the COPD exacerbation and patient is is still wheezing a little bit patient received high -dose of IV steroids after which her blood sugars went up patient is presently on IV insulin patient will be switched to oral steroids and patient denied any fever chills patient was pretty status is at her baseline patient doesn't use any onset at home. Patient's IV insulin will be switched to subcutaneous insulin and the patient probably will be discharged tomorrow if her blood sugars are well controlled on oral steroids and patient was switched to oral steroids today. Patient will be started on d[place]: Bronchitis patient is comparing of greenish sputum production have the symptoms has been going on for last 3-4 days Review of Systems REVIEW OF SYSTEMS: CONSTITUTIONAL: No fever, no malaise, no fatigue. HEENT: No recent visual problems or hearing problems. Denied any sore throat. CARDIOVASCULAR: No chest pain, orthopnea, PND, no palpitations, no syncope. PULMONARY: As mentioned in HPI GASTROINTESTINAL: No diarrhea, no nausea, no vomiting, no abdominal pain. Normoactive bowel sounds. NEUROLOGICAL: No headaches, no weakness, no numbness. HEMATOLOGICAL: Denies any bleeding or petechiae. GENITOURINARY: Denies any burning micturition, frequency, or urgency. MUSCULOSKELETAL/RHEUMATOLOGICAL: Denies any joint pain, swelling, or any muscle pain. ENDOCRINE: Denies any polyuria or polydipsia. The rest of the 14-point review of systems is negative. Past Medical History Past Medical History: Diabetes Mellitus, Hypertension, Thyroid Disorder Additional Past Medical History / Comment(s): september 2016"DIZZINESS,BALANCE ISSUES FOR PAST FEW MONTHS, FALL hit lt side of head on entertainment center- it was thought due to combination of meds she was on . chronic low back pain- SLEEPS IN A RECLINER CHAIR. PAST FX L3 AND L5, herniated discs,migraines, UTI'S History of Any Multi-Drug Resistant Organisms: None Reported Past Surgical History: Back Surgery, Cholecystectomy, Hysterectomy Additional Past Surgical History / Comment(s): PARTIAL HYSTERECTOMY Past Anesthesia/Blood Transfusion Reactions: Previous Problems w/ Anesthesia Additional Past Anesthesia/Blood Transfusion Reaction / Comment(s): "WENT INTO SHOCK WITH EPIDURAL" CLAUSTERPHOBIA Past Psychological History: Depression Additional Psychological History / Comment(s): LIVES WITH SPOUSE AND 2 DAUGHTERS. 2 PET DOGS. LIVES IN 2 STORY HOUSE THAT HAS 1 FRONT STEP. 12 STEPS TO 2ND FLOOR AND 8 BASEMENT STEPS. NO HOME CARE SERVICES. USES A WALKER WHEN UP Smoking Status: Former smoker Past Alcohol Use History: Rare Additional Past Alcohol Use History / Comment(s): STARTED SMOKING AT AGE 14(1984 ), QUIT 2004, SMOKED 1/2 PPD Past Drug Use History: None Reported - Past Family History Father Family Medical History: No Reported History Mother Additional Family Medical History / Comment(s): PROBLEMS W/ALLERGIES Medications and Allergies Home Medications Medication Instructions Recorded Confirmed Type Lisinopril [Zestril] 10 mg PO DAILY 08/08/14 06/23/17 History glipiZIDE [Glucotrol] 20 mg PO BID 08/08/14 06/23/17 History metFORMIN HCL 1,000 mg PO BID 08/08/14 06/23/17 History Levothyroxine Sodium [Synthroid] 175 mcg PO DAILY 03/15/16 06/23/17 History Insulin Glargine [Lantus] 20 unit SQ HS 10/01/16 06/23/17 History amLODIPine [Norvasc] 10 mg PO DAILY 10/01/16 06/23/17 History Ascorbic Acid [Vitamin C] 1,000 mg PO DAILY 02/22/17 06/23/17 History Aspirin [Adult Low Dose Aspirin EC] 81 mg PO DAILY 02/22/17 06/23/17 History Cholecalciferol [Vitamin D3] 1,000 unit PO DAILY 02/22/17 06/23/17 History Diazepam [Valium] 10 mg PO BID 02/22/17 06/23/17 History HYDROcodone/APAP 5-325MG [[place] 2 tab PO TID PRN 02/22/17 06/23/17 History 5-325] Multivitamins, Thera [Multivitamin 1 tab PO DAILY 02/22/17 06/23/17 History (formulary)] Soy Isoflavone 50 mg PO DAILY 02/22/17 06/23/17 History Vitamin B Complex 1 cap PO DAILY 02/22/17 06/23/17 History Vitamin C/Biotin [Hair, Skin and 1 tab PO DAILY 02/22/17 06/23/17 History Nails] Vitamin E 100 unit PO DAILY 02/22/17 06/23/17 History Escitalopram [Lexapro] 5 mg PO DAILY 04/12/17 06/23/17 History Gabapentin [Neurontin] 600 mg PO TID 04/13/17 06/23/17 History Albuterol Inhaler [Ventolin Hfa 2 puff INHALATION Q6HR PRN #1 06/19/17 06/23/17 Rx Inhaler] inhaler Ketorolac [Toradol] 10 mg PO Q6HR #20 tab 06/19/17 06/23/17 Rx predniSONE 20 mg PO BID #10 tab 06/19/17 06/23/17 Rx Allergies Allergy/AdvReac Type Severity Reaction Status Date / Time fentanyl Allergy Rash/Hives Verified 06/23/17 22:36 bupivacaine AdvReac Unknown Verified 06/23/17 22:36 Physical Exam Vitals: Vital Signs Temp Pulse Pulse Resp BP BP Pulse Ox 06/24/17 11:39 104 H 06/24/17 11:30 104 H 06/24/17 08:00 95 16 06/24/17 07:40 109 H 06/24/17 07:20 112 H 06/24/17 07:00 99.0 F 95 16 104/67 97 06/24/17 02:28 98.5 F 111 H 16 122/58 92 L 06/24/17 01:49 99.1 F 114 H 20 122/56 93 L 06/24/17 01:00 129 H 20 06/24/17 00:47 100.1 F H 109 H 20 105/55 93 L 06/24/17 00:45 114 H 18 06/24/17 00:02 116 H 20 132/58 06/23/17 23:24 120 H 20 06/23/17 23:02 117 H 20 06/23/17 23:01 100.2 F H 112 H 18 117/57 94 L 06/23/17 22:00 100.8 F H 133 H 22 133/60 92 L Intake and Output 06/23/17 06/24/17 06/24/17 22:59 06:59 14:59 Intake Total 489.666 69.299 Balance 489.666 69.299 Intake: Intake, IV Titration 489.666 69.299 Amount Insulin Regular 100 unit 89.666 69.299 In Sodium Chloride 0.9% 100 ml @ 0.1 UNITS/KG/HR 10.99 mls/hr IV .Q9H12M ANDREW Rx#:[id number] Sodium Chloride 0.9% 1, 400 000 ml @ 100 mls/hr IV . Q10H ANDREW Rx#:[id number] Other: Voiding Method Toilet Toilet # Voids 1 Weight 108.862 kg 108.862 kg 108.862 kg PHYSICAL EXAMINATION: GENERAL: The patient is alert and oriented x3, not in any acute distress. Well developed, well nourished. Obese HEENT: Pupils are round and equally reacting to light. EOMI. No scleral icterus. No conjunctival pallor. Normocephalic, atraumatic. No pharyngeal erythema. No thyromegaly. CARDIOVASCULAR: S1 and S2 present. No murmurs, rubs, or gallops. PULMONARY: Minimal expiratory wheezing was appreciated fairly good air entry into bilateral lung english. ABDOMEN: Soft, nontender, nondistended, normoactive bowel sounds. No palpable organomegaly. MUSCULOSKELETAL: No joint swelling or deformity. EXTREMITIES: No cyanosis, clubbing, or pedal edema. NEUROLOGICAL: Gross neurological examination did not reveal any focal deficits. SKIN: No rashes. Results CBC & Chem 7: 06/23/17 22:20 06/24/17 06:51 Labs: Abnormal Lab Results - Last 24 Hours (Table) 06/23/17 06/23/17 06/24/17 Range/Units 22:20 22:20 00:40 WBC 21.5 H (3.8-10.6) k/uL Neutrophils # 12.6 H (1.3-7.7) k/uL Lymphocytes # 7.2 H (1.0-4.8) k/uL Monocytes # 1.2 H (0-1.0) k/uL Sodium (137-145) mmol/L Potassium 3.4 L (3.5-5.1) mmol/L Chloride 93 L (98-107) mmol/L Carbon Dioxide 19 L (22-30) mmol/L BUN 19 H (7-17) mg/dL Glucose 419 H (74-99) mg/dL POC Glucose (mg/dL) (75-99) mg/dL Phosphorus (2.5-4.5) mg/dL Urine Protein Trace H (Negative) Urine Glucose (UA) 4+ H (Negative) Urine Ketones 3+ H (Negative) 06/24/17 06/24/17 06/24/17 Range/Units 02:09 02:20 02:20 WBC (3.8-10.6) k/uL Neutrophils # (1.3-7.7) k/uL Lymphocytes # (1.0-4.8) k/uL Monocytes # (0-1.0) k/uL Sodium 135 L (137-145) mmol/L Potassium (3.5-5.1) mmol/L Chloride (98-107) mmol/L Carbon Dioxide 12 L (22-30) mmol/L BUN 19 H (7-17) mg/dL Glucose 614 H* (74-99) mg/dL POC Glucose (mg/dL) >600 H (75-99) mg/dL Phosphorus 4.9 H (2.5-4.5) mg/dL Urine Protein (Negative) Urine Glucose (UA) (Negative) Urine Ketones (Negative) 06/24/17 06/24/17 06/24/17 Range/Units 04:19 04:45 05:17 WBC (3.8-10.6) k/uL Neutrophils # (1.3-7.7) k/uL Lymphocytes # (1.0-4.8) k/uL Monocytes # (0-1.0) k/uL Sodium (137-145) mmol/L Potassium (3.5-5.1) mmol/L Chloride (98-107) mmol/L Carbon Dioxide (22-30) mmol/L BUN (7-17) mg/dL Glucose (74-99) mg/dL POC Glucose (mg/dL) 485 H 459 H 379 H (75-99) mg/dL Phosphorus (2.5-4.5) mg/dL Urine Protein (Negative) Urine Glucose (UA) (Negative) Urine Ketones (Negative) 06/24/17 06/24/17 06/24/17 Range/Units 05:53 06:25 06:51 WBC (3.8-10.6) k/uL Neutrophils # (1.3-7.7) k/uL Lymphocytes # (1.0-4.8) k/uL Monocytes # (0-1.0) k/uL Sodium 136 L (137-145) mmol/L Potassium (3.5-5.1) mmol/L Chloride (98-107) mmol/L Carbon Dioxide 18 L (22-30) mmol/L BUN 18 H (7-17) mg/dL Glucose 291 H (74-99) mg/dL POC Glucose (mg/dL) 327 H 288 H (75-99) mg/dL Phosphorus (2.5-4.5) mg/dL Urine Protein (Negative) Urine Glucose (UA) (Negative) Urine Ketones (Negative) 06/24/17 06/24/17 06/24/17 Range/Units 06:59 07:30 08:10 WBC (3.8-10.6) k/uL Neutrophils # (1.3-7.7) k/uL Lymphocytes # (1.0-4.8) k/uL Monocytes # (0-1.0) k/uL Sodium (137-145) mmol/L Potassium (3.5-5.1) mmol/L Chloride (98-107) mmol/L Carbon Dioxide (22-30) mmol/L BUN (7-17) mg/dL Glucose (74-99) mg/dL POC Glucose (mg/dL) 275 H 261 H 283 H (75-99) mg/dL Phosphorus (2.5-4.5) mg/dL Urine Protein (Negative) Urine Glucose (UA) (Negative) Urine Ketones (Negative) 06/24/17 06/24/17 06/24/17 Range/Units 08:46 09:17 09:50 WBC (3.8-10.6) k/uL Neutrophils # (1.3-7.7) k/uL Lymphocytes # (1.0-4.8) k/uL Monocytes # (0-1.0) k/uL Sodium (137-145) mmol/L Potassium (3.5-5.1) mmol/L Chloride (98-107) mmol/L Carbon Dioxide (22-30) mmol/L BUN (7-17) mg/dL Glucose (74-99) mg/dL POC Glucose (mg/dL) 290 H 277 H 280 H (75-99) mg/dL Phosphorus (2.5-4.5) mg/dL Urine Protein (Negative) Urine Glucose (UA) (Negative) Urine Ketones (Negative) 06/24/17 06/24/17 06/24/17 Range/Units 10:16 10:50 11:19 WBC (3.8-10.6) k/uL Neutrophils # (1.3-7.7) k/uL Lymphocytes # (1.0-4.8) k/uL Monocytes # (0-1.0) k/uL Sodium (137-145) mmol/L Potassium (3.5-5.1) mmol/L Chloride (98-107) mmol/L Carbon Dioxide (22-30) mmol/L BUN (7-17) mg/dL Glucose (74-99) mg/dL POC Glucose (mg/dL) 286 H 259 H 251 H (75-99) mg/dL Phosphorus (2.5-4.5) mg/dL Urine Protein (Negative) Urine Glucose (UA) (Negative) Urine Ketones (Negative) 06/24/17 Range/Units 11:42 WBC (3.8-10.6) k/uL Neutrophils # (1.3-7.7) k/uL Lymphocytes # (1.0-4.8) k/uL Monocytes # (0-1.0) k/uL Sodium (137-145) mmol/L Potassium (3.5-5.1) mmol/L Chloride (98-107) mmol/L Carbon Dioxide (22-30) mmol/L BUN (7-17) mg/dL Glucose (74-99) mg/dL POC Glucose (mg/dL) 273 H (75-99) mg/dL Phosphorus (2.5-4.5) mg/dL Urine Protein (Negative) Urine Glucose (UA) (Negative) Urine Ketones (Negative) Microbiology - Last 24 Hours (Table) 06/24/17 00:40 Urine Culture - Preliminary Urine,Voided Thrombosis Risk Factor Assmnt - Choose All That Apply Any of the Below Risk Factors Present?: Yes Each Factor Represents 1 point: Age 41-60 years, Obesity (BMI >25) Other Risk Factors: No Other congenital or acquired thrombophilia - If yes, enter type in comment: No Thrombosis Risk Factor Assessment Total Risk Factor Score: 2 Thrombosis Risk Factor Assessment Level: Low Risk Assessment and Plan Plan: -COPD exacerbation: Patient steroids will be switched to oral steroids possibly of discharge tomorrow continue with the albuterol ipratropium inhalational. Doxycycline as mentioned above. -Type 2 diabetes mellitus: Uncontrolled blood sugars due to systemic steroids patient's Lantus dose will be increased to patient will be switched to subcutaneous insulin later today -Hypertension: Patient is hypotensive dyspnea amlodipine continue lisinopril. -Obesity: Counseling was provided and extend-diabetic nephropathy and diuretic neuropathy with the peripheral neuropathy and patient is on gabapentin which will be continued next and-chronic low back pain -Hypothyroid is a continue with levothyroxine.
[2017-06-24] MEDS: HYDROcodone/APAP 5-325MG 1 EACH TAB PO PRN ×2 (12:16→21:10)
[2017-06-24] MEDS: DOXYCYCLINE 50 MG CAP PO SCH ×2 (12:16→21:02)
[2017-06-24 12:26] LABS: Glucose,Whole Blood 256 mg/dL (75-99)
[2017-06-24 12:54] LABS: Glucose,Whole Blood 249 mg/dL (75-99)
[2017-06-24 14:48] LABS: Glucose,Whole Blood 288 mg/dL (75-99)
[2017-06-24] MEDS: GABAPENTIN 300 MG CAP PO SCH ×2 (16:13→22:20)
[2017-06-24 16:50] LABS: Glucose,Whole Blood 278 mg/dL (75-99)
[2017-06-24 19:09] LABS: Glucose,Whole Blood 255 mg/dL (75-99)
[2017-06-24] MEDS ORDERED: INSULIN DETEMIR 100 UNIT/ML 10 ML VIAL SQ SCH (21:00)
[2017-06-24] MEDS: metFORMIN 500 MG TAB PO SCH (21:02)
[2017-06-24] MEDS: glipiZIDE 10 MG TAB PO SCH (21:03)
[2017-06-24] MEDS: DIAZEPAM 5 MG TAB PO SCH (21:03)
[2017-06-24 21:26] LABS: Glucose,Whole Blood 308 mg/dL (75-99)
[2017-06-24] MEDS: INSULIN ASPART 100 UNIT/ML 1 ML 10 ML VIAL SQ SCH (21:43)
[2017-06-25] MEDS: D5-0.45% NACL WITH KCL 20MEQ/L 1,000 ML IV SCH ×2 (01:08→06:45)
[2017-06-25 01:50] LABS: Glucose,Whole Blood 232 mg/dL (75-99)
[2017-06-25] MEDS: SODIUM CHLORIDE 0.9% 1,000 ML IV SCH ×5 (03:51→10:30)
[2017-06-25] MEDS ORDERED: LEVOTHYROXINE 100 MCG TAB PO SCH (06:30)
[2017-06-25] MEDS ORDERED: LEVOTHYROXINE 75 MCG TAB PO SCH (06:30)
[2017-06-25] MEDS ORDERED: INSULIN DETEMIR 100 UNIT/ML 10 ML VIAL SQ SCH (06:52)
[2017-06-25 07:11] LABS: Glucose,Whole Blood 142 mg/dL (75-99)
[2017-06-25] MEDS: IPRATROPIUM-ALBUTEROL 3 ML NEB INHALATION SCH ×2 (07:27→11:24)
[2017-06-25] MEDS: INSULIN ASPART 100 UNIT/ML 1 ML 10 ML VIAL SQ SCH (07:30)
[2017-06-25] MEDS: DOXYCYCLINE 50 MG CAP PO SCH (07:34)
[2017-06-25] MEDS: GABAPENTIN 300 MG CAP PO SCH (07:34)
[2017-06-25] MEDS: metFORMIN 500 MG TAB PO SCH (07:35)
[2017-06-25] MEDS: glipiZIDE 10 MG TAB PO SCH (07:35)
[2017-06-25] MEDS: ENOXAPARIN 40 MG/0.4 ML SYRINGE SQ SCH (07:36)
[2017-06-25] MEDS: HYDROcodone/APAP 5-325MG 1 EACH TAB PO PRN (07:41)
[2017-06-25] MEDS: DIAZEPAM 5 MG TAB PO SCH (08:06)
[2017-06-25 08:19] VITALS: BP 123/78; PULSE 100; RESP 16; TEMP 97.8
[2017-06-25] MEDS ORDERED: LISINOPRIL 10 MG TAB PO SCH (09:00)
[2017-06-25] MEDS ORDERED: ASPIRIN 81 MG PO SCH (09:00)
[2017-06-25] MEDS ORDERED: ESCITALOPRAM 5 MG TAB PO SCH (09:00)
[2017-06-25] MEDS ORDERED: predniSONE 20 MG TAB PO SCH (09:00)
--- NOTE | 2017-06-25 10:44 | P.DS ---
Providers Date of admission: 06/24/17 01:05 Attending physician: Torsten Wei Primary care physician: Tj Peace MD Hospital Course: Patient was admitted for presumed exception patient is doing much better today patient was discharged on antibiotics and the weaning dose of prednisone and patient blood sugars are doing well now patient has some metabolic acidosis secondary to hyperchloremia patient appears to have some mild ketoacidosis which resolved now. PHYSICAL EXAMINATION: GENERAL: The patient is alert and oriented x3, not in any acute distress. Well developed, well nourished. HEENT: Pupils are round and equally reacting to light. EOMI. No scleral icterus. No conjunctival pallor. Normocephalic, atraumatic. No pharyngeal erythema. No thyromegaly. CARDIOVASCULAR: S1 and S2 present. No murmurs, rubs, or gallops. PULMONARY: Chest is clear to auscultation, no wheezing or crackles. ABDOMEN: Soft, nontender, nondistended, normoactive bowel sounds. No palpable organomegaly. MUSCULOSKELETAL: No joint swelling or deformity. EXTREMITIES: No cyanosis, clubbing, or pedal edema. NEUROLOGICAL: Gross neurological examination did not reveal any focal deficits. SKIN: No rashes. Assessment and Plan Plan: -COPD exacerbation: -Type 2 diabetes mellitus: Uncontrolled blood sugars due to systemic steroids patient's -Hypertension: Patient is hypotensive dyspnea amlodipine continue lisinopril. -Obesity: Counseling was provided and extend-diabetic nephropathy and diuretic neuropathy with the peripheral neuropathy and patient is on gabapentin which will be continued next and-chronic low back pain -Hypothyroid is a continue with levothyroxine. Patient Condition at Discharge: Fair Plan - Discharge Summary Discharge Rx Participant: Yes New Discharge Prescriptions: New Doxycycline Hyclate 100 mg PO BID #10 tab Insulin Detemir [Levemir] 30 unit SQ HS syr predniSONE 10 mg PO DAILY #30 tab Continue metFORMIN HCL 1,000 mg PO BID glipiZIDE [Glucotrol] 20 mg PO BID Lisinopril [Zestril] 10 mg PO DAILY Levothyroxine Sodium [Synthroid] 175 mcg PO DAILY amLODIPine [Norvasc] 10 mg PO DAILY Vitamin B Complex 1 cap PO DAILY Soy Isoflavone 50 mg PO DAILY Vitamin E 100 unit PO DAILY Vitamin C/Biotin [Hair, Skin and Nails] 1 tab PO DAILY Multivitamins, Thera [Multivitamin (formulary)] 1 tab PO DAILY Cholecalciferol [Vitamin D3] 1,000 unit PO DAILY Ascorbic Acid [Vitamin C] 1,000 mg PO DAILY HYDROcodone/APAP 5-325MG [Lynn 5-325] 2 tab PO TID PRN PRN Reason: Pain Aspirin [Adult Low Dose Aspirin EC] 81 mg PO DAILY Diazepam [Valium] 10 mg PO BID Escitalopram [Lexapro] 5 mg PO DAILY Gabapentin [Neurontin] 600 mg PO TID Albuterol Inhaler [Ventolin Hfa Inhaler] 2 puff INHALATION Q6HR PRN #1 inhaler PRN Reason: Dyspnea Ketorolac [Toradol] 10 mg PO Q6HR #20 tab Discontinued Insulin Glargine [Lantus] 20 unit SQ HS predniSONE 20 mg PO BID #10 tab Discharge Medication List Lisinopril [Zestril] 10 mg PO DAILY 08/08/14 [History] glipiZIDE [Glucotrol] 20 mg PO BID 08/08/14 [History] metFORMIN HCL 1,000 mg PO BID 08/08/14 [History] Levothyroxine Sodium [Synthroid] 175 mcg PO DAILY 03/15/16 [History] amLODIPine [Norvasc] 10 mg PO DAILY 10/01/16 [History] Ascorbic Acid [Vitamin C] 1,000 mg PO DAILY 02/22/17 [History] Aspirin [Adult Low Dose Aspirin EC] 81 mg PO DAILY 02/22/17 [History] Cholecalciferol [Vitamin D3] 1,000 unit PO DAILY 02/22/17 [History] Diazepam [Valium] 10 mg PO BID 02/22/17 [History] HYDROcodone/APAP 5-325MG [[place]ynn 5-325] 2 tab PO TID PRN 02/22/17 [History] Multivitamins, Thera [Multivitamin (formulary)] 1 tab PO DAILY 02/22/17 [History ] Soy Isoflavone 50 mg PO DAILY 02/22/17 [History] Vitamin B Complex 1 cap PO DAILY 02/22/17 [History] Vitamin C/Biotin [Hair, Skin and Nails] 1 tab PO DAILY 02/22/17 [History] Vitamin E 100 unit PO DAILY 02/22/17 [History] Escitalopram [Lexapro] 5 mg PO DAILY 04/12/17 [History] Gabapentin [Neurontin] 600 mg PO TID 04/13/17 [History] Albuterol Inhaler [Ventolin Hfa Inhaler] 2 puff INHALATION Q6HR PRN #1 inhaler 06/19/17 [Rx] Ketorolac [Toradol] 10 mg PO Q6HR #20 tab 06/19/17 [Rx] Doxycycline Hyclate 100 mg PO BID #10 tab 06/25/17 [Rx] Insulin Detemir [Levemir] 30 unit SQ HS syr 06/25/17 [Rx] predniSONE 10 mg PO DAILY #30 tab 06/25/17 [Rx] Follow up Appointment(s)/Referral(s): [facility], [NON-STAFF] - Tj Peace MD [Primary Care Provider] - 3 Days Patient Instructions/Handouts: Doxycycline (By mouth), Prednisone (By mouth), Acute Bronchitis (GEN), Bronchospasm (DC), Hypoxia (GEN), How Your Lungs Work ( DC) Discharge Disposition: HOME SELF-CARE
== END 2017-06-25 11:25 | disposition home or self-care (01) | DRG 190 ==
LOC: EC 21:56 → 5MS5E 06-24 01:05
PROVIDERS: ADMIT Hospitalist; ATTEND Hospitalist
DX: J44.0 Chronic obstructive pulmonary disease with (acute) lower respiratory infection (principal); E11.10 Type 2 diabetes mellitus with ketoacidosis without coma; E11.21 Type 2 diabetes mellitus with diabetic nephropathy; E11.42 Type 2 diabetes mellitus with diabetic polyneuropathy; J44.1 Chronic obstructive pulmonary disease with (acute) exacerbation; E03.9 Hypothyroidism, unspecified; M54.5 Low back pain; E66.9 Obesity, unspecified; G89.29 Other chronic pain; E11.65 Type 2 diabetes mellitus with hyperglycemia; F32.9 Major depressive disorder, single episode, unspecified; I10 Essential (primary) hypertension; J20.9 Acute bronchitis, unspecified; R09.02 Hypoxemia; T38.0X5A Adverse effect of glucocorticoids and synthetic analogues, initial encounter; Z79.4 Long term (current) use of insulin; Z79.899 Other long term (current) drug therapy; Z79.82 Long term (current) use of aspirin; Z79.890 Hormone replacement therapy; Z79.52 Long term (current) use of systemic steroids; Z71.3 Dietary counseling and surveillance; Z87.891 Personal history of nicotine dependence; Z90.711 Acquired absence of uterus with remaining cervical stump; Z68.37 Body mass index [BMI] 37.0-37.9, adult
CPT/HCPCS: 36415; 71275; 80051; 80053; 81003; 82009; 82550; 82553; 82565; 82947; 83036; 83735; 83880; 84100; 84484; 84520; 85025; 85379; 85610; 85730; 87040; 87086; 87502; 93005; 94640; 94760; 96361; 96365; 96375; 99285

== ENCOUNTER 2017-08-02 18:25 | Emergency (ER) | payer OTHER ==
--- NOTE | 2017-08-02 19:17 | CT ---
EXAMINATION TYPE: CT brain wo con DATE OF EXAM: 08/02/2017 COMPARISON: CT brain October 01, 2016 HISTORY: Fall with head injury CT DLP: 1040 mGycm. Automated Exposure Control for Dose Reduction was Utilized. TECHNIQUE: CT scan of the head is performed without contrast. FINDINGS: There is no acute intracranial hemorrhage, mass effect, or midline shift identified. The ventricles and sulci are within normal limits in size. Hyperostosis frontalis is seen. The globes a re intact and the visualized sinuses are clear. The calvarium is intact. IMPRESSION: No acute intracranial hemorrhage, mass effect, or midline shift is seen. No significant change from prior.
--- NOTE | 2017-08-02 19:24 | ED ---
General Adult HPI - General Chief complaint: Head Injury Stated complaint: fall, head injury, vomiting and tires Time Seen by Provider: 08/02/17 18:44 Source: patient, RN notes reviewed Mode of arrival: wheelchair Limitations: no limitations - History of Present Illness Initial comments: Patient is a 47-year-old female presents with emergency department after she slept in the bathtub. She reports that she fell on her tailbone and also at the back of her head. She reports that she may have lost consciousness. She reports that she had no lacerations to the back of her skull. Patient reports she has a headache. She feels tired and dizzy. She reports it is happened approximately an hours prior to arrival. - Related Data Home Medications Medication Instructions Recorded Confirmed Lisinopril [Zestril] 10 mg PO DAILY 08/08/14 06/23/17 glipiZIDE [Glucotrol] 20 mg PO BID 08/08/14 06/23/17 metFORMIN HCL 1,000 mg PO BID 08/08/14 06/23/17 Levothyroxine Sodium [Synthroid] 175 mcg PO DAILY 03/15/16 06/23/17 Ascorbic Acid [Vitamin C] 1,000 mg PO DAILY 02/22/17 06/23/17 Aspirin [Adult Low Dose Aspirin EC] 81 mg PO DAILY 02/22/17 06/23/17 Cholecalciferol [Vitamin D3] 1,000 unit PO DAILY 02/22/17 06/23/17 Diazepam [Valium] 10 mg PO BID 02/22/17 06/23/17 HYDROcodone/APAP 5-325MG [[place] 2 tab PO TID PRN 02/22/17 06/23/17 5-325] Multivitamins, Thera [Multivitamin 1 tab PO DAILY 02/22/17 06/23/17 (formulary)] Soy Isoflavone 50 mg PO DAILY 02/22/17 06/23/17 Vitamin B Complex 1 cap PO DAILY 02/22/17 06/23/17 Vitamin C/Biotin [Hair, Skin and 1 tab PO DAILY 02/22/17 06/23/17 Nails] Vitamin E 100 unit PO DAILY 02/22/17 06/23/17 Escitalopram [Lexapro] 5 mg PO DAILY 04/12/17 06/23/17 Gabapentin [Neurontin] 600 mg PO TID 04/13/17 06/23/17 Previous Rx's Medication Instructions Recorded Albuterol Inhaler [Ventolin Hfa 2 puff INHALATION Q6HR PRN #1 06/19/17 Inhaler] inhaler Ketorolac [Toradol] 10 mg PO Q6HR #20 tab 06/19/17 Doxycycline Hyclate 100 mg PO BID #10 tab 06/25/17 Insulin Detemir [Levemir] 30 unit SQ HS syr 06/25/17 predniSONE 10 mg PO DAILY #30 tab 06/25/17 Acetaminophen with Codeine 1 tab PO Q6H PRN 3 Days #12 tab 08/02/17 [Tylenol w/codeine #3] Cyclobenzaprine [Flexeril] 10 mg PO TID #12 tab 08/02/17 Allergies Allergy/AdvReac Type Severity Reaction Status Date / Time fentanyl Allergy Rash/Hives Verified 08/02/17 18:37 bupivacaine AdvReac Unknown Verified 08/02/17 18:37 Review of Systems ROS Statement: Those systems with pertinent positive or pertinent negative responses have been documented in the HPI. ROS Other: All systems not noted in ROS Statement are negative. Constitutional: Denies: fever, chills Eyes: Denies: eye pain ENT: Reports: ear pain, throat pain Respiratory: Denies: cough, dyspnea Cardiovascular: Reports: chest pain Endocrine: Denies: fatigue Gastrointestinal: Denies: abdominal pain, nausea Genitourinary: Denies: urgency, dysuria Musculoskeletal: Reports: back pain Skin: Reports: lesions. Denies: rash Neurological: Reports: headache. Denies: weakness, numbness, paresthesias, abnormal gait Psychiatric: Denies: anxiety Hematological/Lymphatic: Denies: easy bleeding Past Medical History Past Medical History: Diabetes Mellitus, Hypertension, Thyroid Disorder Additional Past Medical History / Comment(s): september 2016"DIZZINESS,BALANCE ISSUES FOR PAST FEW MONTHS, FALL hit lt side of head on entertainment center- it was thought due to combination of meds she was on . chronic low back pain- SLEEPS IN A RECLINER CHAIR. PAST FX L3 AND L5, herniated discs,migraines, UTI'S History of Any Multi-Drug Resistant Organisms: None Reported Past Surgical History: Back Surgery, Cholecystectomy, Hysterectomy Additional Past Surgical History / Comment(s): PARTIAL HYSTERECTOMY Past Anesthesia/Blood Transfusion Reactions: Previous Problems w/ Anesthesia Additional Past Anesthesia/Blood Transfusion Reaction / Comment(s): "WENT INTO SHOCK WITH EPIDURAL" CLAUSTERPHOBIA Past Psychological History: Depression Smoking Status: Former smoker Past Alcohol Use History: Rare Past Drug Use History: None Reported - Past Family History Father Family Medical History: No Reported History Mother Additional Family Medical History / Comment(s): PROBLEMS W/ALLERGIES General Exam - General Exam Comments Initial Comments: This is a 47 year old female, alert no acute distress. Limitations: no limitations General appearance: alert, in no apparent distress Head exam: Present: atraumatic, normocephalic, normal inspection Eye exam: Present: normal appearance, PERRL, EOMI. Absent: scleral icterus, conjunctival injection, periorbital swelling ENT exam: Present: normal exam, mucous membranes moist Neck exam: Present: normal inspection. Absent: tenderness, meningismus, lymphadenopathy Respiratory exam: Present: normal lung sounds bilaterally. Absent: respiratory distress, wheezes, rales, rhonchi, stridor Cardiovascular Exam: Present: regular rate, normal rhythm, normal heart sounds. Absent: systolic murmur, diastolic murmur, rubs, gallop, clicks GI/Abdominal exam: Present: soft, normal bowel sounds. Absent: distended, tenderness, guarding, rebound, rigid Extremities exam: Present: normal inspection, full ROM, normal capillary refill. Absent: tenderness, pedal edema, joint swelling, calf tenderness Back exam: Present: normal inspection Neurological exam: Present: alert, oriented X3, CN II-XII intact Expanded Patient oriented to: Present: person, place, time Speech: Present: fluid speech Cranial nerves: EOM's Intact: Normal, Facial Sensation: Normal Cerebellar function: Finger to Nose: Normal Upper motor neuron: Pronator Drift: Normal Sensory exam: Upper Extremity Light Touch: Normal, Lower Extremity Light Touch: Normal Motor strength exam: RUE: 5, LUE: 5, RLE: 5, LLE: 5 Eye Response: (4) open spontaneously Motor Response: (6) obeys commands Verbal Response: (5) oriented [place] Total: 15 Psychiatric exam: Present: normal affect, normal mood Skin exam: Present: warm, dry, intact, normal color. Absent: rash Course Vital Signs 08/02/17 08/02/17 18:34 20:09 Temperature 98.6 F 97.0 F L Pulse Rate 87 93 Respiratory 16 18 Rate Blood Pressure 124/74 120/61 O2 Sat by Pulse 96 98 Oximetry Medical Decision Making - Medical Decision Making 47 year old female Presents after she slept in her bathtub. She hit the back of her head as well as their Lord tailbone. Reports that she has a headache a seven out of 10. CT scan was performed. No event of an acute intracranial abnormality's. Patient x-ray of her lumbar spine and sacrum were reviewed and normal. No fractures or changes. She has no neurological deficit's. Nurse did point out the patient had a change in pupil size. Both are reactive. SHe has no other deficits. Discussed that she most be monitored, and that she may have had different pupil sizes as a baseline. She will follow up with PCP and be monitored by family. - Radiology Data Radiology results: report reviewed CT brain is reviewed and negative for any acute process. Sacrum and Coxxyx xray are negative for any acute process. Lumbar spine xray shows no acute changes. Disposition Clinical Impression: Fall, Coccyx pain, Head injury Disposition: HOME SELF-CARE Condition: Good Instructions: Concussion (ED), Low Back Strain (ED) Additional Instructions: Patient advised to rest, apply heat and ice to the back. He also may need to get a doughnut pillow to help with pressure on the tailbone. Patient should take the anti-inflammatory medicine and pain medicine. Return to the emergency department if any alarming signs or symptoms occur. Patient needs to be monitored after a head injury. Any changes in all mental status or vomiting patient should return. Prescriptions: Acetaminophen with Codeine [Tylenol w/codeine #3] 1 tab PO Q6H PRN 3 Days #12 tab PRN Reason: Pain Cyclobenzaprine [Flexeril] 10 mg PO TID #12 tab Is patient prescribed a controlled substance at d/c from ED?: No If prescribed controlled substance>3 days was MAPS reviewed?: No When asked, does pt state using other controlled substances?: No Referrals: Teresa Jose DO [Primary Care Provider] - 1-2 days Time of Disposition: 19:36
--- NOTE | 2017-08-02 19:31 | XR ---
EXAMINATION TYPE: XR lumbar spine 2 or 3V DATE OF EXAM: 08/02/2017 CLINICAL HISTORY: Fall injury with pain. TECHNIQUE: Frontal and lateral images of the lumbar spine are obtained. COMPARISON: Prior lumbar spine x-ray November 25, 2016. FINDINGS: There are 5 lumbar type vertebral bodies identified. The lumbar spine shows satisfactory alignment without evidence of acute fracture or dislocation. There is moderate disc space narrowing a nd spurring L5-S1 level redemonstrated otherwise the vertebral body heights and disk space heights ar e within normal limits. The overlying soft tissue appears unremarkable. IMPRESSION: No acute fracture or dislocation is seen in the lumbar spine. No significant change from prior.
--- NOTE | 2017-08-02 19:32 | XR ---
EXAMINATION TYPE: XR sacrum coccyx DATE OF EXAM: 08/02/2017 COMPARISON: Pelvic x-ray November 25, 2016. HISTORY: Fall injury with sacral and coccygeal pain. TECHNIQUE: 2 views of sacrum and coccyx are obtained. FINDINGS: No acute displaced fracture is seen. Lucency from overlying bowel gas is present making jordyn luation slightly suboptimal. Sacral alar are intact. Sacroiliac joints are maintained. Some tiny scat tered pelvic phleboliths are present. IMPRESSION: No acute displaced sacral or coccygeal fracture.
[2017-08-02] MEDS ORDERED: ACET/COD 300 MG/30 MG STARTER PACK 6 TAB BTL PO STA (19:36)
[2017-08-02] MEDS ORDERED: CYCLOBENZAPRINE 10MG STARTER 3 TAB BTL PO STA (19:36)
[2017-08-02] MEDS ORDERED: IBUPROFEN 600 MG STARTER PACK 4 TAB BTL PO STA (19:36)
[2017-08-02 20:12] VITALS: BP 120/61; PULSE 93; RESP 18; TEMP 97
== END 2017-08-02 20:12 | disposition home or self-care (01) ==
LOC: EC 18:25
DX: S09.90XA Unspecified injury of head, initial encounter (principal); M53.3 Sacrococcygeal disorders, not elsewhere classified; W18.2XXA Fall in (into) shower or empty bathtub, initial encounter; Z53.29 Procedure and treatment not carried out because of patient's decision for other reasons; E11.9 Type 2 diabetes mellitus without complications; I10 Essential (primary) hypertension; E07.9 Disorder of thyroid, unspecified; F32.9 Major depressive disorder, single episode, unspecified; Z87.891 Personal history of nicotine dependence; Z79.82 Long term (current) use of aspirin; Z79.84 Long term (current) use of oral hypoglycemic drugs; Z79.899 Other long term (current) drug therapy; Z88.8 Allergy status to other drugs, medicaments and biological substances
CPT/HCPCS: 70450; 72100; 72220; 99284

== ENCOUNTER 2017-08-08 16:47 | Emergency (ER) | payer OTHER ==
[2017-08-08 17:37] VITALS: RESP 18
--- NOTE | 2017-08-08 18:09 | XR ---
EXAMINATION TYPE: XR hand complete LT DATE OF EXAM: 08/08/2017 COMPARISON: NONE HISTORY: Pain TECHNIQUE: 3 views FINDINGS: I see no fracture nor dislocation. Joint spaces are normal. The low finger is intact. There are no erosions. IMPRESSION: Negative left hand exam.
--- NOTE | 2017-08-08 19:20 | ED ---
General Adult HPI - General Chief complaint: Extremity Injury, Upper Stated complaint: Pinky Injury Time Seen by Provider: 08/08/17 19:02 Source: patient, RN notes reviewed Mode of arrival: ambulatory Limitations: no limitations - History of Present Illness Initial comments: 47-year-old female presents to the emergency department for a chief complaint of left hand injury yesterday. Patient tripped and fell on the left outstretched hand. Patient denies being dizzy or losing consciousness before the fall. Patient denies pain in the wrist or elbow. Patient states the pain is around the third and fourth MCP joint of the left hand. Patient has no other complaints at this time including shortness of breath, chest pain, abdominal pain, nausea or vomiting, headache, or visual changes. - Related Data Home Medications Medication Instructions Recorded Confirmed Lisinopril [Zestril] 10 mg PO DAILY 08/08/14 06/23/17 glipiZIDE [Glucotrol] 20 mg PO BID 08/08/14 06/23/17 metFORMIN HCL 1,000 mg PO BID 08/08/14 06/23/17 Levothyroxine Sodium [Synthroid] 175 mcg PO DAILY 03/15/16 06/23/17 Ascorbic Acid [Vitamin C] 1,000 mg PO DAILY 02/22/17 06/23/17 Aspirin [Adult Low Dose Aspirin EC] 81 mg PO DAILY 02/22/17 06/23/17 Cholecalciferol [Vitamin D3] 1,000 unit PO DAILY 02/22/17 06/23/17 Diazepam [Valium] 10 mg PO BID 02/22/17 06/23/17 HYDROcodone/APAP 5-325MG [Estelline 2 tab PO TID PRN 02/22/17 06/23/17 5-325] Multivitamins, Thera [Multivitamin 1 tab PO DAILY 02/22/17 06/23/17 (formulary)] Soy Isoflavone 50 mg PO DAILY 02/22/17 06/23/17 Vitamin B Complex 1 cap PO DAILY 02/22/17 06/23/17 Vitamin C/Biotin [Hair, Skin and 1 tab PO DAILY 02/22/17 06/23/17 Nails] Vitamin E 100 unit PO DAILY 02/22/17 06/23/17 Escitalopram [Lexapro] 5 mg PO DAILY 04/12/17 06/23/17 Gabapentin [Neurontin] 600 mg PO TID 04/13/17 06/23/17 Albuterol Inhaler [Ventolin Hfa 2 puff INHALATION RT-Q6H PRN 08/08/17 08/08/17 Inhaler] Previous Rx's Medication Instructions Recorded Doxycycline Hyclate 100 mg PO BID #10 tab 06/25/17 Insulin Detemir [Levemir] 30 unit SQ HS syr 06/25/17 Acetaminophen with Codeine 1 tab PO Q6H PRN 3 Days #12 tab 08/02/17 [Tylenol w/codeine #3] Cyclobenzaprine [Flexeril] 10 mg PO TID #12 tab 08/02/17 Allergies Allergy/AdvReac Type Severity Reaction Status Date / Time fentanyl Allergy Rash/Hives Verified 08/08/17 19:17 bupivacaine AdvReac Unknown Verified 08/08/17 19:17 Review of Systems ROS Statement: Those systems with pertinent positive or pertinent negative responses have been documented in the HPI. ROS Other: All systems not noted in ROS Statement are negative. Past Medical History Past Medical History: Diabetes Mellitus, Hypertension, Thyroid Disorder Additional Past Medical History / Comment(s): september 2016"DIZZINESS,BALANCE ISSUES FOR PAST FEW MONTHS, FALL hit lt side of head on entertainment center- it was thought due to combination of meds she was on . chronic low back pain- SLEEPS IN A RECLINER CHAIR. PAST FX L3 AND L5, herniated discs,migraines, UTI'S History of Any Multi-Drug Resistant Organisms: None Reported Past Surgical History: Back Surgery, Cholecystectomy, Hysterectomy Additional Past Surgical History / Comment(s): PARTIAL HYSTERECTOMY Past Anesthesia/Blood Transfusion Reactions: Previous Problems w/ Anesthesia Additional Past Anesthesia/Blood Transfusion Reaction / Comment(s): "WENT INTO SHOCK WITH EPIDURAL" CLAUSTERPHOBIA Past Psychological History: Depression Smoking Status: Former smoker Past Alcohol Use History: Rare Past Drug Use History: None Reported - Past Family History Father Family Medical History: No Reported History Mother Additional Family Medical History / Comment(s): PROBLEMS W/ALLERGIES General Exam Limitations: no limitations General appearance: alert Respiratory exam: Present: normal lung sounds bilaterally. Absent: respiratory distress, wheezes, rales, rhonchi, stridor Cardiovascular Exam: Present: regular rate, normal rhythm, normal heart sounds. Absent: systolic murmur, diastolic murmur, rubs, gallop, clicks Extremities exam: Present: tenderness (Patient has mild tenderness over the third and fourth MCP joints of the left hand. Patient also has mild scaphoid tenderness on the left wrist.), normal capillary refill (Refill less than 2 seconds and radial pulse 2+), joint swelling (There is mild swelling over the third and fourth metacarpal heads on the left upper extremity.), other ( Neurovascular intact. Patient has full sensation in the left upper extremity.) . Absent: full ROM (Limited flexion and extension of the left third and fourth digit of the left hand. Full range of motion of the left wrist.) Course Vital Signs 08/08/17 17:34 Temperature 98.8 F Pulse Rate 97 Respiratory 18 Rate Blood Pressure 133/74 O2 Sat by Pulse 98 Oximetry Procedures - Procedures Initial comment: Neurovascular intact before splint application Indication: Left scaphoid tenderness Type: Short arm thumb spica Wounds: no abrasions or lacerations underneath splint Neurovascular status: patient has sensation and movement of digits extending outside the splint, there is no cyanosis, capillary refill < 2 seconds Follow-up: patient given number for orthopedics and instructed to phone to make an appointment. Patient aware she can return to the Emergency Department if any difficulties. Medical Decision Making - Medical Decision Making 47-year-old female presents to the emergency department for a chief complaint of left hand pain 2 days. Patient fell on outstretched hand yesterday. He shouldn't has pain mostly over the third and fourth MCP joint of the left hand. Patient denies pain in the wrist. Patient denies hitting her head. Patient denies losing consciousness or having dizziness preceding the fall. On exam patient has some limited range of motion of the third and fourth digits. Mild tenderness over the third and fourth MCP joints. Patient does have positive scaphoid tenderness on the left wrist. Patient will be splinted in a thumb spica. She will follow up with orthopedics in one to 2 days. She will return to the emergency Department if she has any worsening symptoms. In the meantime she will use Motrin and Tylenol for pain as well as rest ice and elevate the affected hand. Disposition Clinical Impression: Hand pain, left Disposition: HOME SELF-CARE Condition: Good Instructions: Scaphoid Fracture (ED), RICE Therapy (ED) Additional Instructions: Please use Motrin and Tylenol for pain relief. Please follow-up with orthopedics in one to 2 days for scaphoid tenderness. You do not have a visible scaphoid fracture at this time. Return to the emergency department if symptoms worsen. Is patient prescribed a controlled substance at d/c from ED?: No Referrals: Jimmy Rios MD [Primary Care Provider] - 1-2 days Mukul Souza DO [Doctor of Osteopathic Medicine] - 1-2 days Time of Disposition: 19:18
[2017-08-08 19:40] VITALS: BP 121/67; PULSE 86; TEMP 97
== END 2017-08-08 19:40 | disposition home or self-care (01) ==
LOC: EC 16:47
DX: M79.642 Pain in left hand (principal); M79.89 Other specified soft tissue disorders; E11.9 Type 2 diabetes mellitus without complications; I10 Essential (primary) hypertension; E07.9 Disorder of thyroid, unspecified; F32.9 Major depressive disorder, single episode, unspecified; Z87.891 Personal history of nicotine dependence; Z79.82 Long term (current) use of aspirin; Z79.84 Long term (current) use of oral hypoglycemic drugs; Z79.899 Other long term (current) drug therapy; Z88.5 Allergy status to narcotic agent; Z88.8 Allergy status to other drugs, medicaments and biological substances; W01.0XXA Fall on same level from slipping, tripping and stumbling without subsequent striking against object, initial encounter
CPT/HCPCS: 29125; 99283

== ENCOUNTER → 2017-08-30 | Outpatient (CLI) | payer OTHER ==
[2017-08-30 14:04] VITALS: BP 110/79; PULSE 100; RESP 26
--- NOTE | 2017-08-30 14:20 | P.PN ---
Progress Note - Text Progress Note Date: 08/30/17 Patient returns for followup for chronic back pain with radiation to RLE > LLE. Patient underwent caudal IZZY while hospitalized in March for pain exacerbation, which provided some relief for 3 months' interval and pain only returned when she believes that she was bending and twisting more than usual. Patient continues on [place] medications for pain from PCP with some relief. Patient denies adverse drug effects from medications. Today, pt denies new- onset weakness, bowel/bladder incontinence, or any other signs or symptoms of cauda equina syndrome. There are no signs of acute intoxication, and no indications of medication diversion or overuse. In addition to above, 13-point review of systems is also negative for chest pain , shortness of breath, changes in vision, changes in hearing, new onset weakness , abdominal pain, diarrhea, extreme fatigue, malaise, fever, skin changes, homicidal or suicidal ideation, or bowel or bladder incontinence. Vital Signs: Reviewed in EMR Gen: WDWN, AAOx3, NAD HEENT: NCAT, EOMI, hearing grossly normal Pulm: resp unlabored Abd: soft, NT, ND, obese Neck: supple, trachea midline ROM in flexion lumbar spine: reduced ROM in extension lumbar spine: reduced Lumbar paravertebral tenderness: + bilateral, R > L Facet loading: + bilateral SI joint tenderness: neg Truman's test: neg Straight leg raise: + RLE at 10 degrees Imaging: Reviewed in EMR Assessment: 1. lumbar PLPS 2. lumbar radiculitis 3. chronic pain syndrome Plan: 1. Explanation: Opioid and psychological risk scores were reviewed. Diagnoses , prognoses, and multiple treatment options including but not limited to physical therapy, interventional therapies, adjuvant medical therapies, narcotic medication therapies, and surgery were discussed with the patient and all questions were answered to the patient's satisfaction. 2. Opioid agreement: Patient has previously signed narcotic agreement, and was orally counseled to not overuse, abuse, divert, or cell medications, and to take them as prescribed by only 1 healthcare provider. The patient was also counseled to store opioid medications in a safe and preferably locked location. Patient was also counseled against driving or operating heavy equipment while using narcotic medications and also to not use alcohol or any illicit or recreational drugs. The patient verbalized understanding that lack of compliance with any of the above and likely result in failure to renew narcotic prescriptions, possible discharge from the clinic, and possible legal ramifications thereafter if indicated. 3. Counseling: The patient was counseled extensively on SMOKING CESSATION, BODY MASS INDEX, EXERCISE. Specifically, the patient was instructed regarding the importance of smoking cessation, weight control, and exercise in the context of both chronic pain and overall health. 4. Procedures: repeat caudal IZZY (last in March) 5. Consultations: None 6. Investigations: UDS not done, MAPS queried and appropriate 7. Medications: none prescribed 8. Morphine equivalents per day prescribed: zero 9. Disposition: f/u for procedure as scheduled PQRS measures: 1-Patient's medications are documented in the chart. 2-Tobacco use is negative 3-Patient has not had a pneumococcal vaccine. 4-Advanced care planning discussed, patient unable to give. 5-Opioid contract NOT signed with the patient. 6-Pain positive, follow-up visit or procedure scheduled 7-Patient's blood pressure measured and documented, and WNL. 8-Patient's weight was measured, and body mass index ABOVE the normal limits, and counseling was done. Patient instructed to follow up with PCP. 9-Patient WAS NOT identified as an unhealthy alcohol user.
== END | disposition home or self-care (01) ==
LOC: PNWHC3 13:07
PROVIDERS: ATTEND Anesthesiology
DX: G89.4 Chronic pain syndrome (principal); M54.9 Dorsalgia, unspecified; M54.16 Radiculopathy, lumbar region; G97.1 Other reaction to spinal and lumbar puncture; Z79.891 Long term (current) use of opiate analgesic
CPT/HCPCS: 99211

== ENCOUNTER 2017-09-11 12:11 | Emergency (ER) | payer OTHER ==
[2017-09-11 12:25] VITALS: RESP 16
--- NOTE | 2017-09-11 13:17 | ED ---
General Adult HPI - General Chief complaint: Extremity Injury, Upper Stated complaint: rt shoulder injury Source: patient, RN notes reviewed Mode of arrival: ambulatory Limitations: no limitations - History of Present Illness Initial comments: 47-year-old female presents to the emergency department for a chief complaint of right shoulder pain times one week. Patient states she fell twice last week. Patient fell once catching herself with her right hand and fell another time onto her right shoulder. Patient denies hitting her head or any other injuries. Patient denies any pain in the hand wrist or elbow. Patient states she thinks the pain is muscular because it is in her back by her shoulder blade as well as the superior portion of her right shoulder. Patient takes [place] for pain which is only helping somewhat. Patient would just like to make sure she did not break anything today. Patient denies any shooting pain or numbness in the right upper extremity. Patient denies any neck or back pain. Patient has no other complaints at this time including shortness of breath, chest pain, abdominal pain, nausea or vomiting, headache, or visual changes. - Related Data Home Medications Medication Instructions Recorded Confirmed Lisinopril [Zestril] 10 mg PO DAILY 08/08/14 09/11/17 glipiZIDE [Glucotrol] 20 mg PO BID 08/08/14 09/11/17 metFORMIN HCL 1,000 mg PO BID 08/08/14 09/11/17 Levothyroxine Sodium [Synthroid] 175 mcg PO DAILY 03/15/16 09/11/17 Ascorbic Acid [Vitamin C] 1,000 mg PO DAILY 02/22/17 09/11/17 Aspirin [Adult Low Dose Aspirin EC] 81 mg PO DAILY 02/22/17 09/11/17 Cholecalciferol [Vitamin D3] 1,000 unit PO DAILY 02/22/17 09/11/17 Diazepam [Valium] 10 mg PO BID 02/22/17 09/11/17 HYDROcodone/APAP 5-325MG [[place] 2 tab PO TID PRN 02/22/17 09/11/17 5-325] Multivitamins, Thera [Multivitamin 1 tab PO DAILY 02/22/17 09/11/17 (formulary)] Soy Isoflavone 50 mg PO DAILY 02/22/17 09/11/17 Vitamin B Complex 1 cap PO DAILY 02/22/17 09/11/17 Vitamin C/Biotin [Hair, Skin and 1 tab PO DAILY 02/22/17 09/11/17 Nails] Vitamin E 100 unit PO DAILY 02/22/17 09/11/17 Escitalopram [Lexapro] 5 mg PO DAILY 04/12/17 09/11/17 Gabapentin [Neurontin] 600 mg PO TID 04/13/17 09/11/17 Albuterol Inhaler [Ventolin Hfa 2 puff INHALATION RT-Q6H PRN 08/08/17 09/11/17 Inhaler] Previous Rx's Medication Instructions Recorded Doxycycline Hyclate 100 mg PO BID #10 tab 06/25/17 Insulin Detemir [Levemir] 30 unit SQ HS syr 06/25/17 Cyclobenzaprine [Flexeril] 10 mg PO TID #12 tab 08/02/17 Cyclobenzaprine [Flexeril] 10 mg PO TID #20 tab 09/11/17 Allergies Allergy/AdvReac Type Severity Reaction Status Date / Time fentanyl Allergy Rash/Hives Verified 09/11/17 12:20 bupivacaine AdvReac Unknown Verified 09/11/17 12:20 Review of Systems ROS Statement: Those systems with pertinent positive or pertinent negative responses have been documented in the HPI. ROS Other: All systems not noted in ROS Statement are negative. Past Medical History Past Medical History: Diabetes Mellitus, Hypertension, Thyroid Disorder Additional Past Medical History / Comment(s): september 2016"DIZZINESS,BALANCE ISSUES FOR PAST FEW MONTHS, FALL hit lt side of [place]- it was thought due to combination of meds she was on . chronic low back pain- SLEEPS IN A RECLINER CHAIR. PAST FX L3 AND L5, herniated discs,migraines, UTI'S History of Any Multi-Drug Resistant Organisms: None Reported Past Surgical History: Back Surgery, Cholecystectomy, Hysterectomy Additional Past Surgical History / Comment(s): PARTIAL HYSTERECTOMY Past Anesthesia/Blood Transfusion Reactions: Previous Problems w/ Anesthesia Additional Past Anesthesia/Blood Transfusion Reaction / Comment(s): "WENT INTO SHOCK WITH EPIDURAL" CLAUSTERPHOBIA Past Psychological History: Depression Smoking Status: Former smoker Past Alcohol Use History: Rare Past Drug Use History: None Reported - Past Family History Father Family Medical History: No Reported History Mother Additional Family Medical History / Comment(s): PROBLEMS W/ALLERGIES General Exam Limitations: no limitations General appearance: alert, in no apparent distress Head exam: Present: atraumatic, normocephalic Eye exam: Present: normal appearance, PERRL, EOMI. Absent: scleral icterus, conjunctival injection, periorbital swelling ENT exam: Present: normal exam, mucous membranes moist Neck exam: Present: normal inspection, full ROM (Full flexion and extension and rotation of the neck). Absent: tenderness, meningismus, lymphadenopathy Respiratory exam: Present: normal lung sounds bilaterally. Absent: respiratory distress, wheezes, rales, rhonchi, stridor Cardiovascular Exam: Present: regular rate, normal rhythm, normal heart sounds. Absent: systolic murmur, diastolic murmur, rubs, gallop, clicks Extremities exam: Present: tenderness (Patient has tenderness to the superior right shoulder as well as just medial to the right shoulder blade.), normal capillary refill (Refill 2 seconds and radial pulse 2+ in the right upper extremity.), other (Sensation intact in the right upper extremity. [employer]ice strength 5 out of 5.). Absent: full ROM (Patient has about 90 abduction and flexion of the right shoulder. About 30 extension. Patient has full range of motion in the right fingers, hand, wrist and elbow.), pedal edema, joint swelling (No swelling, ecchymosis, or erythema noted of the right shoulder or right upper extremity in general.) Course Vital Signs 09/11/17 12:21 Temperature 97.9 F Pulse Rate 88 Respiratory 16 Rate Blood Pressure 128/70 O2 Sat by Pulse 98 Oximetry Medical Decision Making - Medical Decision Making 47-year-old female since to the emergency department for right shoulder pain times one week. Patient fell twice on the right shoulder last week. No other injuries were sustained. On exam patient has limited range of motion of the right shoulder to about 90 flexion and abduction. Neurovascular intact in the right upper extremity. No swelling or redness in the right upper extremity. Patient does have some tenderness just medial to the right shoulder blade. Tenderness to the superior aspect of the right shoulder as well. Patient agrees this is likely muscular. X-ray of the right shoulder showed no acute fractures or dislocations. This is likely a sprain of the right trapezius muscle. Patient will continue to take Motrin, Tifton, and Flexeril. Patient states she is out of Flexeril and was given a prescription. Patient was not given a sling for the shoulder to prevent adhesive capsulitis. She will follow up with primary care in 1-2 days. She will return to the emergency department if symptoms worsen. Disposition Clinical Impression: Strain of right trapezius muscle Disposition: HOME SELF-CARE Condition: Good Instructions: Muscle Strain (ED), Shoulder Pain (ED) Additional Instructions: Please take Tifton as directed. Take Flexeril as well. Apply heat to the area. Follow-up with primary care in 1-2 days. Return to the emergency department if you have any worsening symptoms. Prescriptions: Cyclobenzaprine [Flexeril] 10 mg PO TID #20 tab Is patient prescribed a controlled substance at d/c from ED?: No Referrals: Teresa Jose DO [Primary Care Provider] - 1-2 days Time of Disposition: 13:35
--- NOTE | 2017-09-11 13:31 | XR ---
EXAMINATION TYPE: XR shoulder complete RT DATE OF EXAM: 09/11/2017 COMPARISON: NONE HISTORY: Pain TECHNIQUE: Shoulder examined in 3 FINDINGS: The humeral head articulates with the glenoid. The acromio-clavicular junction is normal. No acute fractures or dislocations are evident. A follow up study can be performed 7-10 days from acute trauma for continued pain. IMPRESSION: 1. Normal Shoulder
[2017-09-11 13:49] VITALS: BP 111/59; PULSE 74; TEMP 98
== END 2017-09-11 13:51 | disposition home or self-care (01) ==
LOC: EC 12:11
DX: S46.811A Strain of other muscles, fascia and tendons at shoulder and upper arm level, right arm, initial encounter (principal); I10 Essential (primary) hypertension; E11.9 Type 2 diabetes mellitus without complications; E07.9 Disorder of thyroid, unspecified; G89.29 Other chronic pain; F32.9 Major depressive disorder, single episode, unspecified; Z87.891 Personal history of nicotine dependence; Z79.82 Long term (current) use of aspirin; Z79.84 Long term (current) use of oral hypoglycemic drugs; Z79.891 Long term (current) use of opiate analgesic; Z79.899 Other long term (current) drug therapy; Z88.4 Allergy status to anesthetic agent; Z88.5 Allergy status to narcotic agent; W19.XXXA Unspecified fall, initial encounter
CPT/HCPCS: 99283

== ENCOUNTER 2017-09-19 06:13 | Day surgery (SDC) | payer OTHER ==
[2017-09-14 12:54] VITALS: BMI 38.7
[~2017-09-19 06:13] MED LIST: LACTATED RINGERS 1,000 ML IV SCH
[2017-09-19] MEDS ORDERED: LIDOCAINE 1% 20 ML VIAL (10MG/ML) FOR IV START INTRADERMA ONE (06:50)
[2017-09-19 07:03] VITALS: RESP 18; TEMP 97.7
[2017-09-19 07:08] LABS: Glucose,Whole Blood 168 mg/dL (75-99)
[2017-09-19] MEDS ORDERED: IV FLUID CONTINUATION 1,000 ML IV ONE (07:29)
--- NOTE | 2017-09-19 07:45 | P.PCN ---
Date of Procedure: 09/19/17 Procedure(s) Performed: PREOPERATIVE DIAGNOSIS: Lumbar post laminectomy syndrome. POSTOPERATIVE DIAGNOSIS: Lumbar post laminectomy syndrome. PROCEDURE: 1. Caudal epidural steroid injection under fluoroscopic guidance. 2. Caudal epidurogra ANESTHESIA: Local with 1% lidocaine; 5ml for subcutaneous infiltrations and IV versed 2 mg. EBL: None. PROCEDURE INDICATION: The patient with neuropathic pain radiating distally returns for caudal epidural steroid injection. PROCEDURE DESCRIPTION: The patient was seen and identified in the preoperative area. Risks, benefits, complications, and alternatives were discussed with the patient. The patient agreed to proceed with the procedure and signed the consent. IV was started, and vital signs were stable. Patient was taken to the OR and time out was completed. The patient was placed in the prone position on procedure table and a pillow was placed under the abdomen to reduce lumbar lordosis. The lumbosacral area was prepped and draped in the usual sterile fashion. Critical pause was taken. Vital signs were closely monitored during the procedure. Using lateral fluoroscopy the anterior-posterior plates of the sacrum were identified and the skin and deeper tissues corresponding into sacrococcygeal ligament were anesthetized using approximately 3 mL of 1% lidocaine. Then under fluoroscopy, a 3-1/2-inch 20-gauge Tuohy epidural needle was guided through the sacrococcygeal ligament, and into the epidural space. After negative aspiration , a 2 mL of omnipaque-180 contrast dye was injected with excellent epidurogram. Again after negative aspiration for CSF, blood, and with no paresthesias, Depo-Medrol 40 mg, 2ml of 1% preservative free Lidocaine with 6 ml of preservative free normal saline(total of 10ml)solution was injected with washout of epidurogram. Needle was withdrawn intact. Skin was cleansed, and bandage was applied. COMPLICATIONS: None DISPOSITION / PLANS: The patient was placed in a supine position and transferred to the recovery area in a stable condition for observation and was discharged from the recovery room after meeting discharge criteria. Home discharge instructions given to the patient by the staff. The patient was reexamined prior to discharge. The patient will schedule a follow up in the clinic in 2-4 weeks.
[2017-09-19 07:52] VITALS: BP 102/68; PULSE 75
[2017-09-19 07:54] LABS: Glucose,Whole Blood 177 mg/dL (75-99)
--- NOTE | 2017-09-19 09:24 | FL ---
EXAMINATION TYPE: FL guided pain mgmt statistic DATE OF EXAM: 09/19/2017 FLUOROSCOPY Fluoroscopy time of 13 seconds was used during caudal epidural injection. 2 image/s document/s the p miguel angeledure.
== END 2017-09-19 08:09 | disposition home or self-care (01) ==
LOC: ORPAIN 06:13
PROVIDERS: ATTEND Specialist
DX: M96.1 Postlaminectomy syndrome, not elsewhere classified (principal); I10 Essential (primary) hypertension; E11.9 Type 2 diabetes mellitus without complications; Z88.5 Allergy status to narcotic agent; Z88.4 Allergy status to anesthetic agent
CPT/HCPCS: 62323; J2250; J1030; Q9966

== ENCOUNTER 2017-10-03 19:41 | Emergency (ER) | payer OTHER ==
[2017-10-03 20:17] VITALS: RESP 18
--- NOTE | 2017-10-03 20:34 | ED ---
Fall HPI - General Chief Complaint: Fall Stated Complaint: fall/ankle pain Time Seen by Provider: 10/03/17 20:10 Source: patient, RN notes reviewed, old records reviewed Mode of arrival: wheelchair - History of Present Illness Initial Comments: Patient is a 47-year-old female chief complaint of right ankle pain. Patient reports that she tripped down 4 stairs. Patient states that she rolled her ankle in the process. She states when this occurred her knee gave out on her. She reports that she has no knee pain. She states that is chronic for need to be somewhat weak. Patient's physicians had no peripheral paresthesias. Does report some pain over the lateral malleolus. - Related Data Home Medications Medication Instructions Recorded Confirmed Lisinopril [Zestril] 10 mg PO DAILY 08/08/14 09/14/17 glipiZIDE [Glucotrol] 20 mg PO BID 08/08/14 09/14/17 metFORMIN HCL 1,000 mg PO BID 08/08/14 09/14/17 Levothyroxine Sodium [Synthroid] 175 mcg PO DAILY 03/15/16 09/14/17 Ascorbic Acid [Vitamin C] 1,000 mg PO DAILY 02/22/17 09/14/17 Aspirin [Adult Low Dose Aspirin EC] 81 mg PO DAILY 02/22/17 09/14/17 Cholecalciferol [Vitamin D3] 1,000 unit PO DAILY 02/22/17 09/14/17 Diazepam [Valium] 10 mg PO BID 02/22/17 09/14/17 HYDROcodone/APAP 5-325MG [[place] 2 tab PO TID PRN 02/22/17 09/19/17 5-325] Multivitamins, Thera [Multivitamin 1 tab PO DAILY 02/22/17 09/14/17 (formulary)] Soy Isoflavone 50 mg PO DAILY 02/22/17 09/14/17 Vitamin B Complex 1 cap PO DAILY 02/22/17 09/14/17 Vitamin C/Biotin [Hair, Skin and 1 tab PO DAILY 02/22/17 09/14/17 Nails] Vitamin E 100 unit PO DAILY 02/22/17 09/14/17 Escitalopram [Lexapro] 5 mg PO DAILY 04/12/17 09/14/17 Gabapentin [Neurontin] 600 mg PO TID 04/13/17 09/14/17 Albuterol Inhaler [Ventolin Hfa 2 puff INHALATION RT-Q6H PRN 08/08/17 09/14/17 Inhaler] amLODIPine [Norvasc] 10 mg PO DAILY 09/14/17 09/14/17 Previous Rx's Medication Instructions Recorded Doxycycline Hyclate 100 mg PO BID #10 tab 06/25/17 Insulin Detemir [Levemir] 30 unit SQ HS syr 06/25/17 Cyclobenzaprine [Flexeril] 10 mg PO TID #12 tab 08/02/17 Ibuprofen 600 mg PO TID #20 tablet 10/03/17 Allergies Allergy/AdvReac Type Severity Reaction Status Date / Time bupivacaine Allergy Unknown Verified 09/19/17 06:45 fentanyl Allergy Rash/Hives Verified 09/19/17 06:45 Review of Systems ROS Statement: Those systems with pertinent positive or pertinent negative responses have been documented in the HPI. ROS Other: All systems not noted in ROS Statement are negative. Past Medical History Past Medical History: Diabetes Mellitus, Hypertension, Thyroid Disorder Additional Past Medical History / Comment(s): september 2016"DIZZINESS,BALANCE ISSUES FOR PAST FEW MONTHS, FALL hit lt [place] of [place] [facility]- it was thought due to combination of meds she was on . chronic low back pain- SLEEPS IN A RECLINER CHAIR. PAST FX L3 AND L5, herniated discs,migraines, UTI'S History of Any Multi-Drug Resistant Organisms: None Reported Past Surgical History: Back Surgery, Cholecystectomy, Hysterectomy Additional Past Surgical History / Comment(s): PARTIAL HYSTERECTOMY Past Anesthesia/Blood Transfusion Reactions: Previous Problems w/ Anesthesia Additional Past Anesthesia/Blood Transfusion Reaction / Comment(s): "WENT INTO SHOCK WITH EPIDURAL" CLAUSTERPHOBIA Past Psychological History: Depression Smoking Status: Former smoker Past Alcohol Use History: Rare Past Drug Use History: None Reported - Past Family History Father Family Medical History: No Reported History Mother Additional Family Medical History / Comment(s): PROBLEMS W/ALLERGIES General Exam - General Exam Comments Initial Comments: This is a 47-year-old female. . No significant distress. Limitations: no limitations General appearance: alert, in no apparent distress Head exam: Present: atraumatic, normocephalic, normal inspection Eye exam: Present: normal appearance, PERRL, EOMI. Absent: scleral icterus, conjunctival injection, periorbital swelling ENT exam: Present: normal exam, mucous membranes moist Neck exam: Present: normal inspection. Absent: tenderness, meningismus, lymphadenopathy Respiratory exam: Present: normal lung sounds bilaterally Cardiovascular Exam: Present: regular rate, normal rhythm, normal heart sounds. Absent: systolic murmur, diastolic murmur, rubs, gallop, clicks GI/Abdominal exam: Present: soft, normal bowel sounds. Absent: distended, tenderness, guarding, rebound, rigid Right Knee exam: Present: normal inspection, full ROM Lower Leg exam: Present: normal inspection, full ROM Ankle exam: Present: tenderness ( is tenderness and swelling over the lateral malleolus.), swelling. Absent: normal inspection Foot/Toe exam: Present: normal inspection, full ROM Neurovascular tendon exam: Present: no vascular compromise Neurological exam: Present: alert, oriented X3, CN II-XII intact Psychiatric exam: Present: normal affect, normal mood Skin exam: Present: warm, dry, intact, normal color. Absent: rash Course Vital Signs 10/03/17 10/03/17 20:15 22:07 Temperature 96.9 F L 97 F L Pulse Rate 89 74 Respiratory 18 18 Rate Blood Pressure 112/64 129/70 O2 Sat by Pulse 95 97 Oximetry Procedures - Orthopedic Splinting/Casting Injury #1 Side: right Lower Extremity Injury Location: ankle Lower Extremity Immobilizer: AirCast, Jose Miguel wrap Other Orthopedic Equipment: crutches Medical Decision Making - Medical Decision Making 47-year-old female chief complaint of pain over her right ankle after tripping on 4 sutures. Return either to cause this. Denies any pain. She started tenderness over the knee. Full range of motion. She does have some tenderness over the lateral malleolus and swelling. X-ray of the foot and ankle are completed. No evidence of fracture. Patient is placed in Jose Miguel wrap and ankle stirrup air cast. I discussed ambulate with crutches. Discussed appropriate follow-up with orthopedic. All questions answered return parameters were discussed. - Radiology Data Radiology results: report reviewed X-ray of the foot and ankle show evidence of calcaneal spurring. No evidence of fracture. Disposition Clinical Impression: Fall, Right ankle sprain Disposition: HOME SELF-CARE Condition: Good Instructions: Ankle Sprain (ED) Additional Instructions: Patient advised follow-up with primary care physician. Wear the Jose Miguel wrap and stirrup splint. Ambulance crutches. Return to emergency department if any alarming signs or symptoms occur. Prescriptions: Ibuprofen 600 mg PO TID #20 tablet Is patient prescribed a controlled substance at d/c from ED?: No When asked, does pt state using other controlled substances?: No If prescribed controlled substance>3 days was MAPS reviewed?: No If opioid is for acute pain is fill amount 7 days or less?: No If Rx opioid, was Start Talking consent form obtained?: No Referrals: Teresa Jose DO [Primary Care Provider] - 1-2 days Time of Disposition: 21:56
--- NOTE | 2017-10-03 21:09 | XR ---
EXAMINATION TYPE: XR foot complete RT DATE OF EXAM: 10/03/2017 COMPARISON: NONE HISTORY: Foot pain TECHNIQUE: 3 views FINDINGS: There is calcaneal spurring. Metatarsals are intact. I see no fracture nor dislocation. IMPRESSION: Calcaneal spurring. No fracture.
[2017-10-03 22:08] VITALS: BP 129/70; PULSE 74; TEMP 97
--- NOTE | 2017-10-04 17:00 | XR ---
EXAMINATION TYPE: XR ankle complete RT DATE OF EXAM: 10/03/2017 COMPARISON: NONE HISTORY: Foot and ankle pain TECHNIQUE: 3 views FINDINGS: Ankle mortise is anatomic. I see no fracture nor dislocation. There is an Achilles calcanea l spur. There is small plantar calcaneal spur. IMPRESSION: Calcaneal spurring. No fracture.
== END 2017-10-03 22:07 | disposition home or self-care (01) ==
LOC: EC 19:41
DX: S93.401A Sprain of unspecified ligament of right ankle, initial encounter (principal); E11.9 Type 2 diabetes mellitus without complications; I10 Essential (primary) hypertension; E07.9 Disorder of thyroid, unspecified; F32.9 Major depressive disorder, single episode, unspecified; Z87.891 Personal history of nicotine dependence; Z79.82 Long term (current) use of aspirin; Z79.84 Long term (current) use of oral hypoglycemic drugs; Z79.899 Other long term (current) drug therapy; Z88.4 Allergy status to anesthetic agent; Z88.5 Allergy status to narcotic agent; W10.9XXA Fall (on) (from) unspecified stairs and steps, initial encounter
CPT/HCPCS: 73610; 73630; 99284; 29515; L4350

== ENCOUNTER → 2017-10-12 | Outpatient (CLI) | payer OTHER ==
[2017-10-12 13:46] VITALS: BP 127/82; PULSE 86; RESP 18; TEMP 97.7
--- NOTE | 2017-10-12 14:12 | P.PN ---
Progress Note - Text Progress Note Date: 10/12/17 Progress Note - Text Progress Note Date: 10/12/2017 Patient returns for followup for chronic back pain with radiation to RLE > LLE. She recently underwent caudal epidural steroid injection. Caudal epidural injection generally provided her with excellent relief for 3 months, however the one in July did provide relief, but for shorter duration 1-2 weeks. I discussed with her potentially doing a lysis of adhesions as she has had previous discectomy. Patient is okay with proceeding with a third epidural injection. We will schedule her for next available. I informed her that is okay for her to stop her Lovenox 24 hours as she has in the past. Patient continues on [place] medications for pain from PCP with some relief. Patient denies adverse drug effects from medications. Today, pt denies new-onset weakness, bowel/bladder incontinence, or any other signs or symptoms of cauda equina syndrome. There are no signs of acute intoxication, and no indications of medication diversion or overuse. In addition to above, 13-point review of systems is also negative for chest pain , shortness of breath, changes in vision, changes in hearing, new onset weakness , abdominal pain, diarrhea, extreme fatigue, malaise, fever, skin changes, homicidal or suicidal ideation, or bowel or bladder incontinence. Vital Signs: Reviewed in EMR Gen: WDWN, AAOx3, NAD HEENT: NCAT, EOMI, hearing grossly normal Pulm: resp unlabored Abd: soft, NT, ND, obese Integumentary: Surgical scar evaluated on lumbar spine well-healed no erythema Neck: supple, trachea midline ROM in flexion lumbar spine: reduced ROM in extension lumbar spine: reduced Lumbar paravertebral tenderness: + bilateral, R > L Facet loading: + bilateral SI joint tenderness: neg Truman's test: neg Straight leg raise: + RLE at 10 degrees Imaging: Reviewed in EMR Assessment: 1. lumbar PLPS 2. lumbar radiculitis 3. chronic pain syndrome Plan: 1. Explanation: Opioid and psychological risk scores were reviewed. Diagnoses , prognoses, and multiple treatment options including but not limited to physical therapy, interventional therapies, adjuvant medical therapies, narcotic medication therapies, and surgery were discussed with the patient and all questions were answered to the patient's satisfaction. 2. Opioid agreement: Patient has previously signed narcotic agreement, and was orally counseled to not overuse, abuse, divert, or cell medications, and to take them as prescribed by only 1 healthcare provider. The patient was also counseled to store opioid medications in a safe and preferably locked location. Patient was also counseled against driving or operating heavy equipment while using narcotic medications and also to not use alcohol or any illicit or recreational drugs. The patient verbalized understanding that lack of compliance with any of the above and likely result in failure to renew narcotic prescriptions, possible discharge from the clinic, and possible legal ramifications thereafter if indicated. 3. Counseling: The patient was counseled extensively on SMOKING CESSATION, BODY MASS INDEX, EXERCISE. Specifically, the patient was instructed regarding the importance of smoking cessation, weight control, and exercise in the context of both chronic pain and overall health. 4. Procedures: AP caudal epidural steroid injection 5. Consultations: None 6. Investigations: UDS not done, MAPS queried and appropriate 7. Medications: none prescribed 8. Morphine equivalents per day prescribed: zero 9. Disposition: Caudal epidural steroid injection with possible lysis of adhesions PQRS measures: 1-Patient's medications are documented in the chart. 2-Tobacco use is negative 3-Patient has not had a pneumococcal vaccine. 4-Advanced care planning discussed, patient unable to give. 5-Opioid contract NOT signed with the patient. 6-Pain positive, follow-up visit or procedure scheduled 7-Patient's blood pressure measured and documented, and WNL. 8-Patient's weight was measured, and body mass index ABOVE the normal limits, and counseling was done. Patient instructed to follow up with PCP. 9-Patient WAS NOT identified as an unhealthy alcohol user.
== END | disposition home or self-care (01) ==
LOC: PNWHC3 11:53
PROVIDERS: ATTEND Anesthesiology
DX: G89.4 Chronic pain syndrome (principal); M54.9 Dorsalgia, unspecified; M54.16 Radiculopathy, lumbar region; B59 Pneumocystosis; G97.1 Other reaction to spinal and lumbar puncture; Z79.891 Long term (current) use of opiate analgesic
CPT/HCPCS: 99211

== ENCOUNTER → 2017-10-26 | Day surgery (SDC) | payer OTHER ==
[2017-10-19 15:38] VITALS: BMI 38.7
[~2017-10-26] MED LIST changes: -LACTATED RINGERS 1,000 ML IV SCH; +LIDOCAINE 1% 20 ML VIAL (10MG/ML) FOR IV START INTRADERMA ONE
[2017-10-26 06:54] VITALS: BP 117/63; PULSE 79; RESP 18; TEMP 97.7
[2017-10-26] MEDS: LACTATED RINGERS 1,000 ML IV SCH ×2 (06:55→07:03)
[2017-10-26 07:29] LABS: Glucose,Whole Blood 347 mg/dL (75-99)
[2017-10-26 07:30] LABS: Glucose,Whole Blood 368 mg/dL (75-99)
--- NOTE | 2017-10-26 07:42 | P.PN ---
Progress Note - Text Progress Note Date: 10/26/17 This is 47 years old female who was scheduled to have caudal epidural steroid injection with lysis of epidural adhesions, patient diagnosed with failed back surgery syndrome lumbar area, in the preoperative holding area holding, blood sugar was checked and showed that her fasting blood sugar was 368, and the procedure was canceled because patient had elevated blood sugar and she has to follow-up with the primary care MICHAEL, we'll have a better control of the blood sugar before we can proceed with the procedure, the procedure was canceled today and the patient will be rescheduled after the blood sugar under control
== END ==
LOC: ORPAIN 06:10
PROVIDERS: ATTEND Specialist
DX: Z53.8 Procedure and treatment not carried out for other reasons (principal)

== ENCOUNTER → 2017-11-17 | Outpatient (CLI) | payer OTHER ==
--- NOTE | 2017-11-17 21:00 | MR ---
EXAMINATION TYPE: MR brain wo con DATE OF EXAM: 11/17/2017 COMPARISON: Low back pain, headache fall headache HISTORY: Dizziness, headache, falling CONTRAST: Performed utilizing 0 mL intravenous Gadavist gadolinium contrast. TECHNIQUE: Multiplanar, multiecho imaging on a 3.0 Jenna magnet is performed through the brain. Stud y is performed within 24 hours of arrival to the hospital. The craniovertebral junction is normal. The pituitary is normal. Diffusion-weighted imaging is performed. No abnormal hyperintensity is present to suggest an acute i ntracranial infarct or acute ischemic change. Signal through the brain is normal. Ventricles and sulci are appropriate for the patient age. There is left septal deviation. Normal vascular flow voids are within the visualized intracranial cerebral vasculature. Portion of th e optic chiasm visualized appears normal. IMPRESSIONS: 1. Normal MRI brain.
--- NOTE | 2017-11-17 21:09 | MR ---
EXAMINATION TYPE: MR lumbar spine wo/w con DATE OF EXAM: 11/17/2017 COMPARISON: 04/12/2017 HISTORY: LBP, BLE radic, prev surgery 2004 CONTRAST: 12 mL intravenous Gadavist. TECHNIQUE: Multiplanar, multisequence images of the lumbar spine were acquired. FINDINGS: Cord terminates at the T12 level. L5-S1: There is a very large central and right paracentral disc herniation. This may has some extensi on to the right foramen. Exiting right S1 nerve root compression is likely present. Right S1 nerve ro ot appears somewhat prominent compared to the left. Following contrast administration, no abnormal en hancement is evident. Prior laminectomy is evident. No spinal canal stenosis is present. Mild right f oraminal narrowing is present in the sagittal plane. Left foramen is patent. Findings are similar to the comparison. Disc desiccation is present. L4-L5: No significant disc bulge or disc herniation. No spinal canal stenosis. No foraminal stenosi s. Facet hypertrophy is present with mild posterior lateral thecal sac impression, greater on the ri ght.. L3-L4: No significant disc bulge or disc herniation. No spinal canal stenosis. No foraminal stenosi s. Neural foramen are patent.. L2-L3: No significant disc bulge or disc herniation. No spinal canal stenosis. No foraminal stenosi s. Neural foramen are patent.. L1-L2: No significant disc bulge or disc herniation. No spinal canal stenosis. No foraminal stenosi s. Neural foramen are patent.. T12-L1: No significant disc bulge or disc herniation. No spinal canal stenosis. No foraminal stenos is. Neural foramen are patent.. No abnormal enhancement. IMPRESSION: 1. Large right paracentral disc herniation L5-S1 nerve root compression and right exiting S1 nerve ro ot prominence. 2. Examination appears stable from the comparison study.
== END | disposition home or self-care (01) ==
LOC: RADMRIMAIN 15:34
PROVIDERS: ATTEND Physician Assistant
DX: M51.27 Other intervertebral disc displacement, lumbosacral region (principal); R42 Dizziness and giddiness; Z88.4 Allergy status to anesthetic agent; Z88.8 Allergy status to other drugs, medicaments and biological substances
CPT/HCPCS: 82565; 70551; 72158; A9581

== ENCOUNTER 2018-01-19 15:44 | Emergency (ER) | payer OTHER ==
[2018-01-19 15:50] VITALS: RESP 18
[2018-01-19] MEDS ORDERED: KETOROLAC 30 MG/ML 1 ML VIAL IVP STA (16:17)
--- NOTE | 2018-01-19 16:53 | XR ---
EXAMINATION TYPE: XR lumbar spine 2 or 3V DATE OF EXAM: 01/19/2018 COMPARISON: NONE HISTORY: Fall. Back pain TECHNIQUE: 3 views FINDINGS: Lumbar vertebra have normal alignment. There is narrowing at L5-S1 disc space. There is L5 laminectomy defect.. Sacroiliac joints appear normal. I see no compression fracture. IMPRESSION: Mild spondylosis at L5-S1. No fracture seen. No change.
--- NOTE | 2018-01-19 16:55 | XR ---
EXAMINATION TYPE: XR Hip RT and AP Pelvis DATE OF EXAM: 01/19/2018 COMPARISON: NONE HISTORY: Fall. Pain. TECHNIQUE: A single AP view of the pelvis is obtained. Two views of the right hip are obtained. FINDINGS: The pelvic ring is intact. The proximal right femur and hip joint appear intact. Sacroiliac joints appear normal. Hip joint spaces are fairly normal. Impression negative pelvis and right hip exam.
--- NOTE | 2018-01-19 17:08 | ED ---
General Adult HPI - General Chief complaint: Back Pain/Injury Stated complaint: Back Pain Time Seen by Provider: 01/19/18 15:52 Source: patient, EMS, RN notes reviewed Mode of arrival: EMS Limitations: no limitations - History of Present Illness Initial comments: 47-year-old female presents to the emergency department for a chief complaint of right sided buttock pain x 2 days. Patient states this is consistent with her sciatica. She states that today she was walking to the bathroom when she tripped and fell. She states that since that time she has had worsening sciatic pain. She describes the pain as a sharp shooting pain down the right lower extremity to the knee. She denies any numbness or tingling in the lower extremities. She denies any numbness or tingling in the groin or buttock. She denies any bladder or bowel changes. Patient denies any difficulty walking. She denies any weakness in the bilateral lower extremities. Patient denies any history of IV drug abuse, fevers, chronic steroid use, or history of cancer. Patient states she did have a surgery about 15 years ago for a herniated disc. She states that since then she has had another herniated disc. She currently sees a spinal surgeon for this. - Related Data Home Medications Medication Instructions Recorded Confirmed Lisinopril [Zestril] 10 mg PO DAILY 08/08/14 10/26/17 glipiZIDE [Glucotrol] 20 mg PO BID 08/08/14 10/26/17 Levothyroxine Sodium [Synthroid] 175 mcg PO DAILY 03/15/16 10/26/17 Ascorbic Acid [Vitamin C] 1,000 mg PO DAILY 02/22/17 10/26/17 Aspirin [Adult Low Dose Aspirin EC] 81 mg PO DAILY 02/22/17 10/26/17 Cholecalciferol [Vitamin D3] 1,000 unit PO DAILY 02/22/17 10/26/17 Diazepam [Valium] 10 mg PO BID 02/22/17 10/26/17 HYDROcodone/APAP 5-325MG [[place] 2 tab PO TID PRN 02/22/17 10/26/17 5-325] Multivitamins, Thera [Multivitamin 1 tab PO DAILY 02/22/17 10/26/17 (formulary)] Vitamin B Complex 1 cap PO DAILY 02/22/17 10/26/17 Vitamin C/Biotin [Hair, Skin and 1 tab PO DAILY 02/22/17 10/26/17 Nails] Vitamin E 100 unit PO DAILY 02/22/17 10/26/17 Escitalopram [Lexapro] 10 mg PO DAILY 04/12/17 10/26/17 Gabapentin [Neurontin] 600 mg PO TID 04/13/17 10/26/17 Albuterol Inhaler [Ventolin Hfa 2 puff INHALATION RT-Q6H PRN 08/08/17 10/26/17 Inhaler] amLODIPine [Norvasc] 10 mg PO DAILY 09/14/17 10/26/17 Omeprazole 20 mg PO BID 10/12/17 10/26/17 Atorvastatin [Lipitor] 40 mg PO DAILY 10/19/17 10/26/17 INSULIN LISPRO (humaLOG) [humaLOG] 10 units SQ TID-W/MEALS 10/19/17 10/26/17 Previous Rx's Medication Instructions Recorded Insulin Detemir [Levemir] 30 unit SQ HS syr 06/25/17 Cyclobenzaprine [Flexeril] 10 mg PO TID #12 tab 08/02/17 Allergies Allergy/AdvReac Type Severity Reaction Status Date / Time bupivacaine Allergy "went into Verified 10/26/17 06:46 shock" fentanyl Allergy Rash/Hives Verified 10/26/17 06:46 Review of Systems ROS Statement: Those systems with pertinent positive or pertinent negative responses have been documented in the HPI. ROS Other: All systems not noted in ROS Statement are negative. Past Medical History Past Medical History: Diabetes Mellitus, Hypertension, Thyroid Disorder Additional Past Medical History / Comment(s): september 2016"DIZZINESS,BALANCE ISSUES FOR PAST FEW MONTHS, FALL hit lt side of head on entertainment center- it was thought due to combination of meds she was on . chronic low back pain- SLEEPS IN A RECLINER CHAIR. PAST FX L3 AND L5, herniated discs,migraines, UTI'S History of Any Multi-Drug Resistant Organisms: None Reported Past Surgical History: Back Surgery, Cholecystectomy, Hysterectomy Additional Past Surgical History / Comment(s): PARTIAL HYSTERECTOMY Past Anesthesia/Blood Transfusion Reactions: Previous Problems w/ Anesthesia Additional Past Anesthesia/Blood Transfusion Reaction / Comment(s): "WENT INTO SHOCK WITH EPIDURAL" CLAUSTERPHOBIA Past Psychological History: Depression Smoking Status: Former smoker Past Alcohol Use History: None Reported Past Drug Use History: None Reported - Past Family History Father Family Medical History: No Reported History Mother Additional Family Medical History / Comment(s): PROBLEMS W/ALLERGIES General Exam Limitations: no limitations General appearance: alert, in no apparent distress Head exam: Present: atraumatic, normocephalic, normal inspection Eye exam: Present: normal appearance, PERRL, EOMI. Absent: scleral icterus, conjunctival injection, periorbital swelling ENT exam: Present: normal exam, mucous membranes moist Neck exam: Present: normal inspection, full ROM. Absent: tenderness, meningismus, lymphadenopathy Respiratory exam: Present: normal lung sounds bilaterally. Absent: respiratory distress, wheezes, rales, rhonchi, stridor Cardiovascular Exam: Present: regular rate, normal rhythm, normal heart sounds. Absent: systolic murmur, diastolic murmur, rubs, gallop, clicks GI/Abdominal exam: Present: soft, normal bowel sounds. Absent: distended, tenderness, guarding, rebound, rigid Extremities exam: Present: normal capillary refill (Capillary refill less than 2 seconds and DP pulse 2+ in the right lower extremity.), other (Sensation intact in the right lower extremity) Back exam: Present: vertebral tenderness (Mild tenderness noted to the lumbar spine as well as right buttock.). Absent: full ROM (Patient is about 60 lumbar flexion.) Neurological exam: Present: alert, oriented X3, CN II-XII intact, normal gait ( Patient ambulatory with a normal gait in the emergency department.), reflexes normal (No hyperreflexia noted of the right lower extremity) Psychiatric exam: Present: normal affect, normal mood Course Vital Signs 01/19/18 15:46 Temperature 98.2 F Pulse Rate 82 Respiratory 18 Rate Blood Pressure 132/83 O2 Sat by Pulse 96 Oximetry Medical Decision Making - Medical Decision Making 47-year-old female presents to the emergency department for a chief complaint of fall and right lower extremity pain. Patient denies hitting her head. Patient states that she has had right-sided sciatic pain in the past and this has been consistent for the past 2 days. She states she was walking to the bathroom today when she tripped and fell onto the right lower extremity. Patient complains of pain throughout her right-sided buttock. She describes as a sharp pain consistent with her sciatica. She denies any numbness or tingling or weakness in the bilateral lower extremities. No saddle anesthesia or bladder or bowel changes. Patient does have mild lumbar spine tenderness. X- rays were ordered as patient did have a fall. X-ray of the lumbar spine shows ild spondylosis at L5 to S1 without fracture seen. X-ray of the right hip and pelvis is negative for any fractures and shows a normal hip and pelvis exam. Patient has a history of herniated disc. She has a spinal surgeon that she sees for this. Patient states she can contact him tomorrow to discuss MRI for this repeated sciatic pain. Patient was not given steroids as she is a diabetic on insulin without a sliding scale. At this time patient will continue her home [place] at home. She will return if she has any worsening symptoms, weakness in the legs, bladder or bowel changes which was discussed with her and she is aware of. Disposition Clinical Impression: Sciatica Disposition: HOME SELF-CARE Condition: Good Instructions: Sciatica (ED), Acute Low Back Pain (ED) Additional Instructions: Please follow-up with your spine surgeon tomorrow. Please continue to take at home pain medications as well as Motrin. Please return to the emergency department if you have any worsening symptoms. Is patient prescribed a controlled substance at d/c from ED?: No Referrals: Teresa Jose DO [Primary Care Provider] - 1-2 days Time of Disposition: 17:44
[2018-01-19 17:59] VITALS: BP 116/67; PULSE 73; TEMP 97.7
== END 2018-01-19 17:58 | disposition home or self-care (01) ==
LOC: EC 15:44
DX: M47.27 Other spondylosis with radiculopathy, lumbosacral region (principal); E11.9 Type 2 diabetes mellitus without complications; I10 Essential (primary) hypertension; E07.9 Disorder of thyroid, unspecified; G89.29 Other chronic pain; F32.9 Major depressive disorder, single episode, unspecified; Z87.891 Personal history of nicotine dependence; Z88.4 Allergy status to anesthetic agent; Z88.5 Allergy status to narcotic agent; Z79.4 Long term (current) use of insulin; Z79.82 Long term (current) use of aspirin; Z79.899 Other long term (current) drug therapy; Z86.69 Personal history of other diseases of the nervous system and sense organs; W01.0XXA Fall on same level from slipping, tripping and stumbling without subsequent striking against object, initial encounter; Y93.01 Activity, walking, marching and hiking; Y92.008 Other place in unspecified non-institutional (private) residence as the place of occurrence of the external cause
CPT/HCPCS: 99284; 96374; 72100; 73502; J1885

== ENCOUNTER 2018-02-19 23:41 | Emergency (ER) | payer OTHER ==
[2018-02-19 23:45] VITALS: BP 131/82; PULSE 79; RESP 16; TEMP 98.3
[2018-02-20] MEDS ORDERED: IBUPROFEN 800 MG TAB PO STA (00:21)
--- NOTE | 2018-02-20 00:31 | XR ---
EXAMINATION TYPE: XR shoulder complete RT DATE OF EXAM: 02/20/2018 COMPARISON: NONE HISTORY: Shoulder pain TECHNIQUE: 3 views FINDINGS: I see no fracture nor dislocation. Joint spaces are normal. There are no pathologic calcifi cations. IMPRESSION: Negative right shoulder exam.
--- NOTE | 2018-02-20 00:53 | ED ---
General Adult HPI - General Source: patient, family, RN notes reviewed Mode of arrival: ambulatory Limitations: no limitations <Kevin Murillo P - Last Filed: 02/20/18 00:58> <Saira Forbes P - Last Filed: 02/20/18 04:28> - General Chief complaint: Extremity Problem,Nontraumatic Stated complaint: Shoulder Pain Time Seen by Provider: 02/19/18 23:52 - History of Present Illness Initial comments: 47-year-old female presents to the emergency department for a chief complaint of right shoulder pain 3 days. Patient states this started suddenly. However she did fall 2 days ago and states this worsened the pain. Patient states she has pain with movement of the shoulder and when she lifts her arm she has tingling in her fingers. Patient states she has chronic degeneration in her neck and her physical therapist told her this may be related. Patient is wondering if she should go to physical therapy for her shoulder. She states she takes [place] at home for her back but wonders if she should take Motrin for her shoulder. Patient has no other complaints at this time including shortness of breath, chest pain, abdominal pain, nausea or vomiting, headache, or visual changes. (Kevin Murillo) - Related Data Home Medications Medication Instructions Recorded Confirmed Lisinopril [Zestril] 10 mg PO DAILY 08/08/14 10/26/17 glipiZIDE [Glucotrol] 20 mg PO BID 08/08/14 10/26/17 Levothyroxine Sodium [Synthroid] 175 mcg PO DAILY 03/15/16 10/26/17 Ascorbic Acid [Vitamin C] 1,000 mg PO DAILY 02/22/17 10/26/17 Aspirin [Adult Low Dose Aspirin EC] 81 mg PO DAILY 02/22/17 10/26/17 Cholecalciferol [Vitamin D3] 1,000 unit PO DAILY 02/22/17 10/26/17 Diazepam [Valium] 10 mg PO BID 02/22/17 10/26/17 HYDROcodone/APAP 5-325MG [[place] 2 tab PO TID PRN 02/22/17 10/26/17 5-325] Multivitamins, Thera [Multivitamin 1 tab PO DAILY 02/22/17 10/26/17 (formulary)] Vitamin B Complex 1 cap PO DAILY 02/22/17 10/26/17 Vitamin C/Biotin [Hair, Skin and 1 tab PO DAILY 02/22/17 10/26/17 Nails] Vitamin E 100 unit PO DAILY 02/22/17 10/26/17 Escitalopram [Lexapro] 10 mg PO DAILY 04/12/17 10/26/17 Gabapentin [Neurontin] 600 mg PO TID 04/13/17 10/26/17 Albuterol Inhaler [Ventolin Hfa 2 puff INHALATION RT-Q6H PRN 08/08/17 10/26/17 Inhaler] amLODIPine [Norvasc] 10 mg PO DAILY 09/14/17 10/26/17 Omeprazole 20 mg PO BID 10/12/17 10/26/17 Atorvastatin [Lipitor] 40 mg PO DAILY 10/19/17 10/26/17 INSULIN LISPRO (humaLOG) [humaLOG] 10 units SQ TID-W/MEALS 10/19/17 10/26/17 Previous Rx's Medication Instructions Recorded Insulin Detemir [Levemir] 30 unit SQ HS syr 06/25/17 Cyclobenzaprine [Flexeril] 10 mg PO TID #12 tab 08/02/17 Allergies Allergy/AdvReac Type Severity Reaction Status Date / Time bupivacaine Allergy "went into Verified 02/19/18 23:45 shock" fentanyl Allergy Rash/Hives Verified 02/19/18 23:45 Review of Systems ROS Other: All systems not noted in ROS Statement are negative. <Kevin Murillo P - Last Filed: 02/20/18 00:58> ROS Other: All systems not noted in ROS Statement are negative. <Saira Forbes P - Last Filed: 02/20/18 04:28> ROS Statement: Those systems with pertinent positive or pertinent negative responses have been documented in the HPI. Past Medical History Past Medical History: Diabetes Mellitus, Hypertension, Thyroid Disorder Additional Past Medical History / Comment(s): september 2016"DIZZINESS,BALANCE ISSUES FOR PAST FEW MONTHS, FALL hit [place] of [place]- it was thought due to combination of meds she was on . chronic low back pain- SLEEPS IN A RECLINER CHAIR. PAST FX L3 AND L5, herniated discs,migraines, UTI'S History of Any Multi-Drug Resistant Organisms: None Reported Past Surgical History: Back Surgery, Cholecystectomy, Hysterectomy Additional Past Surgical History / Comment(s): PARTIAL HYSTERECTOMY Past Anesthesia/Blood Transfusion Reactions: Previous Problems w/ Anesthesia Additional Past Anesthesia/Blood Transfusion Reaction / Comment(s): "WENT INTO SHOCK WITH EPIDURAL" CLAUSTERPHOBIA Past Psychological History: Depression Smoking Status: Former smoker Past Alcohol Use History: None Reported Past Drug Use History: None Reported - Past Family History Father Family Medical History: No Reported History Mother Additional Family Medical History / Comment(s): PROBLEMS W/ALLERGIES <Kevin Murillo P - Last Filed: 02/20/18 00:58> General Exam Limitations: no limitations General appearance: alert, in no apparent distress Head exam: Present: atraumatic, normocephalic, normal inspection Eye exam: Present: normal appearance, PERRL, EOMI. Absent: scleral icterus, conjunctival injection, periorbital swelling ENT exam: Present: normal exam, mucous membranes moist Neck exam: Present: normal inspection, full ROM (Full range of motion of the neck). Absent: tenderness, meningismus, lymphadenopathy Respiratory exam: Present: normal lung sounds bilaterally. Absent: respiratory distress, wheezes, rales, rhonchi, stridor Cardiovascular Exam: Present: regular rate, normal rhythm, normal heart sounds. Absent: systolic murmur, diastolic murmur, rubs, gallop, clicks Extremities exam: Present: normal capillary refill (Capillary refill less than 2 seconds and radial pulse 2+ in the right upper extremity), other (Sensation intact in the right upper extremity. Positive empty can and Leyva test). Absent: full ROM (Patient has about 90 flexion and 90 abduction of the right shoulder), tenderness (No significant tenderness noted to the right shoulder or upper extremity), joint swelling (No edema, ecchymosis, or signs of trauma noted on the right upper extremity) <Kevin Murillo P - Last Filed: 02/20/18 00:58> Vital Signs 02/19/18 23:42 Temperature 98.3 F Pulse Rate 79 Respiratory 16 Rate Blood Pressure 131/82 O2 Sat by Pulse 99 Oximetry Medical Decision Making <Kevin Murillo P - Last Filed: 02/20/18 00:58> <Saira Forbes P - Last Filed: 02/20/18 04:28> - Medical Decision Making 47-year-old well-appearing pleasant female presents to the emergency department for a chief complaint of right shoulder pain. This has been going on for about 3 days and worsened after a fall 2 days ago. Patient denies hitting her head. Patient does have limited range of motion of the right shoulder and positive empty can and Leyva test. Patient also has tingling in the right hand when lifting her right arm. Neurovascular intact in the right upper extremity. X- ray was negative of the right shoulder. This is a patient that this could be due to cervical radiculopathy as well as a shoulder pathology. Discussed the importance of range of motion exercises to prevent adhesive capsulitis. Patient will follow up with orthopedics. She will return if she has any worsening symptoms. (Kevin Murillo) I was available for consultation in the emergency department. The history and physical exam were done by the midlevel provider. I was consulted for this patient's care. I reviewed the case with the midlevel provider and based on their presentation of the patient, I agree with the assessment, medical decision making and plan of care as documented. (aSira Forbes) Disposition Is patient prescribed a controlled substance at d/c from ED?: No Time of Disposition: 00:52 <Kevin Murillo P - Last Filed: 02/20/18 00:58> <Saira Forbes - Last Filed: 02/20/18 04:28> Clinical Impression: Shoulder pain, right Disposition: HOME SELF-CARE Condition: Good Instructions: Adhesive Capsulitis (ED), Shoulder Pain (ED) Additional Instructions: Please take Motrin and Tylenol for pain. Please do range of motion exercises with your shoulder every hour. Please return to the emergency department if you have any worsening symptoms. Otherwise follow-up with orthopedics in one to 2 days. Referrals: Teresa Jose DO [Primary Care Provider] - 1-2 days Jonny Mathew MD [STAFF PHYSICIAN] - 1-2 days
== END 2018-02-20 00:55 | disposition home or self-care (01) ==
LOC: EC 23:41
DX: M25.511 Pain in right shoulder (principal); E11.9 Type 2 diabetes mellitus without complications; I10 Essential (primary) hypertension; E07.9 Disorder of thyroid, unspecified; F32.9 Major depressive disorder, single episode, unspecified; Z87.891 Personal history of nicotine dependence; Z79.82 Long term (current) use of aspirin; Z79.4 Long term (current) use of insulin; Z79.899 Other long term (current) drug therapy; Z88.5 Allergy status to narcotic agent; Z88.4 Allergy status to anesthetic agent; W19.XXXA Unspecified fall, initial encounter
CPT/HCPCS: 99283

== ENCOUNTER 2018-03-11 01:37 | Emergency (ER) | payer OTHER ==
--- NOTE | 2018-03-11 02:18 | ED ---
General Adult HPI - General Chief complaint: Upper Respiratory Infection Stated complaint: Throat tightness/SOB Time Seen by Provider: 03/11/18 02:01 Source: patient, RN notes reviewed Mode of arrival: ambulatory Limitations: no limitations - History of Present Illness Initial comments: 47-year-old female presents to the emergency department for a chief complaint of congestion. Patient states this has been ongoing for the past 4 days. She states she was started on amoxicillin at that time but it has not improved. Patient also complains of a sore throat. She states it is painful when she swallows. She denies any difficulty swallowing solids or liquids. She states this started 4 days ago as well. Patient denies any significant cough. She denies any shortness of breath. Patient has no other complaints at this time including shortness of breath, chest pain, abdominal pain, nausea or vomiting, headache, or visual changes. - Related Data Home Medications Medication Instructions Recorded Confirmed Lisinopril [Zestril] 10 mg PO DAILY 08/08/14 10/26/17 glipiZIDE [Glucotrol] 20 mg PO BID 08/08/14 10/26/17 Levothyroxine Sodium [Synthroid] 175 mcg PO DAILY 03/15/16 10/26/17 Ascorbic Acid [Vitamin C] 1,000 mg PO DAILY 02/22/17 10/26/17 Aspirin [Adult Low Dose Aspirin EC] 81 mg PO DAILY 02/22/17 10/26/17 Cholecalciferol [Vitamin D3] 1,000 unit PO DAILY 02/22/17 10/26/17 Diazepam [Valium] 10 mg PO BID 02/22/17 10/26/17 HYDROcodone/APAP 5-325MG [[place] 2 tab PO TID PRN 02/22/17 10/26/17 5-325] Multivitamins, Thera [Multivitamin 1 tab PO DAILY 02/22/17 10/26/17 (formulary)] Vitamin B Complex 1 cap PO DAILY 02/22/17 10/26/17 Vitamin C/Biotin [Hair, Skin and 1 tab PO DAILY 02/22/17 10/26/17 Nails] Vitamin E 100 unit PO DAILY 02/22/17 10/26/17 Escitalopram [Lexapro] 10 mg PO DAILY 04/12/17 10/26/17 Gabapentin [Neurontin] 600 mg PO TID 04/13/17 10/26/17 Albuterol Inhaler [Ventolin Hfa 2 puff INHALATION RT-Q6H PRN 08/08/17 10/26/17 Inhaler] amLODIPine [Norvasc] 10 mg PO DAILY 09/14/17 10/26/17 Omeprazole 20 mg PO BID 10/12/17 10/26/17 Atorvastatin [Lipitor] 40 mg PO DAILY 10/19/17 10/26/17 INSULIN LISPRO (humaLOG) [humaLOG] 10 units SQ TID-W/MEALS 10/19/17 10/26/17 Previous Rx's Medication Instructions Recorded Insulin Detemir [Levemir] 30 unit SQ HS syr 06/25/17 Cyclobenzaprine [Flexeril] 10 mg PO TID #12 tab 08/02/17 Allergies Allergy/AdvReac Type Severity Reaction Status Date / Time bupivacaine Allergy "went into Verified 03/11/18 01:48 shock" fentanyl Allergy Rash/Hives Verified 03/11/18 01:48 Review of Systems ROS Statement: Those systems with pertinent positive or pertinent negative responses have been documented in the HPI. ROS Other: All systems not noted in ROS Statement are negative. Past Medical History Past Medical History: Diabetes Mellitus, Hypertension, Thyroid Disorder Additional Past Medical History / Comment(s): september 2016"DIZZINESS,BALANCE ISSUES FOR PAST FEW MONTHS, FALL hit lt side of head on entertainment center- it was thought due to combination of meds she was on . chronic low back pain- SLEEPS IN A RECLINER CHAIR. PAST FX L3 AND L5, herniated discs,migraines, UTI'S History of Any Multi-Drug Resistant Organisms: None Reported Past Surgical History: Back Surgery, Cholecystectomy, Hysterectomy Additional Past Surgical History / Comment(s): PARTIAL HYSTERECTOMY Past Anesthesia/Blood Transfusion Reactions: Previous Problems w/ Anesthesia Additional Past Anesthesia/Blood Transfusion Reaction / Comment(s): "WENT INTO SHOCK WITH EPIDURAL" CLAUSTERPHOBIA Past Psychological History: Depression Smoking Status: Former smoker Past Alcohol Use History: None Reported Past Drug Use History: None Reported - Past Family History Father Family Medical History: No Reported History Mother Additional Family Medical History / Comment(s): PROBLEMS W/ALLERGIES General Exam Limitations: no limitations General appearance: alert, in no apparent distress Head exam: Present: atraumatic, normocephalic, normal inspection Eye exam: Present: normal appearance, PERRL, EOMI. Absent: scleral icterus, conjunctival injection, periorbital swelling ENT exam: Present: normal exam, normal oropharynx (Nonerythematous, uvula midline), mucous membranes moist, TM's normal bilaterally, normal external ear exam, other (mild congestion noted, no erythema/edema of sinuses, no significant tenderness of sinuses) Neck exam: Present: normal inspection, full ROM. Absent: tenderness, meningismus, lymphadenopathy Respiratory exam: Present: normal lung sounds bilaterally. Absent: respiratory distress, wheezes, rales, rhonchi, stridor Cardiovascular Exam: Present: regular rate, normal rhythm, normal heart sounds. Absent: systolic murmur, diastolic murmur, rubs, gallop, clicks Neurological exam: Present: alert, oriented X3, CN II-XII intact Psychiatric exam: Present: normal affect, normal mood Course Vital Signs 03/11/18 03/11/18 01:45 01:53 Temperature 98.4 F Pulse Rate 75 Respiratory 16 19 Rate Blood Pressure 130/79 O2 Sat by Pulse 99 Oximetry Medical Decision Making - Medical Decision Making Presents to the emergency department for a chief complaint of congestion and sore throat 3 days. Patient is swallowing solids and liquids fine. Patient is not coughing or short of breath. No chest pain. Vitals are acceptable, patient is afebrile. No suspicion for influenza. Chest x-ray not warranted at this time this patient does not have a cough. Patient is already on amoxicillin for this. Patient will take [id number] cold medications for this and continue amoxicillin. She'll follow up with primary care in 1-2 days. She'll return if she has any worsening symptoms. - Lab Data Lab Results 03/11/18 Range/Units 02:26 Group A Strep Rapid Negative (Negative) Disposition Clinical Impression: Congestion of nasal sinus, Viral pharyngitis Disposition: HOME SELF-CARE Condition: Good Instructions: Upper Respiratory Infection (ED) Additional Instructions: Please follow up with primary care in 1-2 days. Please continue medications at home. Please return to the emergency department if you have any worsening symptoms. Is patient prescribed a controlled substance at d/c from ED?: No Referrals: Teresa Jose DO [Primary Care Provider] - 1-2 days Time of Disposition: 04:08
[2018-03-11 05:13] VITALS: BP 128/42; PULSE 72; RESP 18; TEMP 98.6
== END 2018-03-11 04:16 | disposition home or self-care (01) ==
LOC: EC 01:37
DX: J02.8 Acute pharyngitis due to other specified organisms (principal); B34.9 Viral infection, unspecified; R09.81 Nasal congestion; I10 Essential (primary) hypertension; E11.9 Type 2 diabetes mellitus without complications; E07.9 Disorder of thyroid, unspecified; G89.29 Other chronic pain; F32.9 Major depressive disorder, single episode, unspecified; Z87.891 Personal history of nicotine dependence; Z88.4 Allergy status to anesthetic agent; Z88.5 Allergy status to narcotic agent; Z79.4 Long term (current) use of insulin; Z79.82 Long term (current) use of aspirin; Z79.899 Other long term (current) drug therapy; Z86.69 Personal history of other diseases of the nervous system and sense organs
CPT/HCPCS: 87081; 87430; 99283

== ENCOUNTER 2018-05-02 02:23 | Observation (INO) | payer OTHER ==
--- NOTE | 2018-05-02 02:48 | ED ---
Extremity Problem HPI - General Chief complaint: Extremity Problem,Nontraumatic Stated complaint: L arm pain Time Seen by Provider: 05/02/18 02:44 Source: patient Mode of arrival: ambulatory Limitations: no limitations - History of Present Illness Initial comments: He is an obese 47-year-old female with history of diabetes and chronic musculoskeletal pain she presents to the emergency department today for evaluation of left-sided shoulder pain. Patient reports that approximately 3 days ago she noticed pain in her left shoulder radiating down the arm. Pain is worse with any movement and over the past 3 days is progressively worsen. Patient has been taking her home [place] which she's prescribed for her chronic back pain. Patient reports [place] is not improving her pain at all. She has tried Motrin. Patient reports that despite these medications her pain continues to worsen she is now tender to touch. She's not noticed any redness or swelling of that extremity she's not had any injury she's not had any recent illness she has no history of gout, inflammatory arthritis or septic arthritis. She's been tested for rheumatoid in the past. Patient denies any recent fevers, chills, nausea or vomiting. - Related Data Home Medications Medication Instructions Recorded Confirmed Lisinopril [Zestril] 10 mg PO DAILY 08/08/14 10/26/17 glipiZIDE [Glucotrol] 20 mg PO BID 08/08/14 10/26/17 Levothyroxine Sodium [Synthroid] 175 mcg PO DAILY 03/15/16 10/26/17 Ascorbic Acid [Vitamin C] 1,000 mg PO DAILY 02/22/17 10/26/17 Aspirin [Adult Low Dose Aspirin EC] 81 mg PO DAILY 02/22/17 10/26/17 Cholecalciferol [Vitamin D3] 1,000 unit PO DAILY 02/22/17 10/26/17 Diazepam [Valium] 10 mg PO BID 02/22/17 10/26/17 HYDROcodone/APAP 5-325MG [[place] 2 tab PO TID PRN 02/22/17 10/26/17 5-325] Multivitamins, Thera [Multivitamin 1 tab PO DAILY 02/22/17 10/26/17 (formulary)] Vitamin B Complex 1 cap PO DAILY 02/22/17 10/26/17 Vitamin C/Biotin [Hair, Skin and 1 tab PO DAILY 02/22/17 10/26/17 Nails] Vitamin E 100 unit PO DAILY 02/22/17 10/26/17 Escitalopram [Lexapro] 10 mg PO DAILY 04/12/17 10/26/17 Gabapentin [Neurontin] 600 mg PO TID 04/13/17 10/26/17 Albuterol Inhaler [Ventolin Hfa 2 puff INHALATION RT-Q6H PRN 08/08/17 10/26/17 Inhaler] amLODIPine [Norvasc] 10 mg PO DAILY 09/14/17 10/26/17 Omeprazole 20 mg PO BID 10/12/17 10/26/17 Atorvastatin [Lipitor] 40 mg PO DAILY 10/19/17 10/26/17 INSULIN LISPRO (humaLOG) [humaLOG] 10 units SQ TID-W/MEALS 10/19/17 10/26/17 Previous Rx's Medication Instructions Recorded Insulin Detemir [Levemir] 30 unit SQ HS syr 06/25/17 Cyclobenzaprine [Flexeril] 10 mg PO TID #12 tab 08/02/17 Allergies Allergy/AdvReac Type Severity Reaction Status Date / Time bupivacaine Allergy "went into Verified 05/02/18 02:35 shock" fentanyl Allergy Rash/Hives Verified 05/02/18 02:35 Review of Systems ROS Statement: Those systems with pertinent positive or pertinent negative responses have been documented in the HPI. ROS Other: All systems not noted in ROS Statement are negative. Past Medical History Past Medical History: Diabetes Mellitus, Hypertension, Seizure Disorder, Thyroid Disorder Additional Past Medical History / Comment(s): chronic low back pain-SLEEPS IN A RECLINER CHAIR. PAST FX L3 AND L5, herniated discs,migraines, UTI'S History of Any Multi-Drug Resistant Organisms: None Reported Past Surgical History: Back Surgery, Cholecystectomy, Hysterectomy Additional Past Surgical History / Comment(s): PARTIAL HYSTERECTOMY Past Anesthesia/Blood Transfusion Reactions: Previous Problems w/ Anesthesia Additional Past Anesthesia/Blood Transfusion Reaction / Comment(s): "WENT INTO SHOCK WITH EPIDURAL" CLAUSTERPHOBIA Past Psychological History: Depression Smoking Status: Former smoker Past Alcohol Use History: None Reported Past Drug Use History: None Reported - Past Family History Father Family Medical History: No Reported History Mother Additional Family Medical History / Comment(s): PROBLEMS W/ALLERGIES General Exam - General Exam Comments Initial Comments: Physical Exam GENERAL: Patient is well-developed and well-nourished. Patient is nontoxic and well- hydrated and is in no distress. HENT: Normocephalic, Atraumatic. EYES: PERRL, EOMI PULMONARY: Unlabored respirations. No audible rales rhonchi or wheezing was noted. CARDIOVASCULAR: There is a regular rate and rhythm without any murmurs gallops or rubs. ABDOMEN: Soft and nontender with normal bowel sounds. SKIN: Skin is clear with no lesions or rashes and otherwise unremarkable. : Deferred NEUROLOGIC: Patient is alert and oriented x3. Moving all extremities spontaneously MUSCULOSKELETAL: Crease active and passive range of motion of left shoulder limited by pain No obvious erythema or swelling of the left shoulder, pain to palpation pain with range of motion Full range of motion of the elbow and wrist without pain PSYCHIATRIC: Normal psychiatric evaluation. Limitations: no limitations Limitations: no limitations Course Vital Signs 05/02/18 02:32 Temperature 98.0 F Pulse Rate 80 Respiratory 18 Rate Blood Pressure 108/69 O2 Sat by Pulse 96 Oximetry Medical Decision Making - Medical Decision Making Patient was seen and evaluated history was obtained from the patient and review of medical record Patient presenting with 3 days of progressively worsening pain, patient is exquisitely tender in the left shoulder X-rays and labs were ordered Labs reveal leukocytosis as well as a significantly elevated CRP At this time I have a high suspicion for a transient inflammatory arthritis as the patient has no other signs of infection, no tachycardia, no fever however given the patient's body habitus I do not feel comfortable performing an arthrocentesis of the shoulder and we'll plan to place the patient in observation for pain management and evaluation by orthopedics. Patient is agreeable to this. Patient care was discussed with Dr. Rueda of the [facility] group who accepts the patient his service with a consult to orthopedic surgery - Lab Data Result diagrams: 05/02/18 03:10 05/02/18 03:10 Lab Results 05/02/18 05/02/18 05/02/18 Range/Units 03:10 03:10 03:10 WBC 15.6 H (3.8-10.6) k/uL RBC 4.77 (3.80-5.40) m/uL Hgb 13.9 (11.4-16.0) gm/dL Hct 42.4 (34.0-46.0) % MCV 88.8 (80.0-100.0) fL MCH 29.1 (25.0-35.0) pg MCHC 32.8 (31.0-37.0) g/dL RDW 13.3 (11.5-15.5) % Plt Count 302 (150-450) k/uL Neutrophils % 44 % Lymphocytes % 45 % Monocytes % 6 % Eosinophils % 2 % Basophils % 1 % Neutrophils # 6.9 (1.3-7.7) k/uL Lymphocytes # 7.1 H (1.0-4.8) k/uL Monocytes # 1.0 (0-1.0) k/uL Eosinophils # 0.2 (0-0.7) k/uL Basophils # 0.1 (0-0.2) k/uL Manual Slide Review Performed Anisocytosis (manual) Present Sodium 135 L (137-145) mmol/L Potassium 4.6 (3.5-5.1) mmol/L Chloride 101 (98-107) mmol/L Carbon Dioxide 25 (22-30) mmol/L Anion Gap 9 mmol/L BUN 14 (7-17) mg/dL Creatinine 0.54 (0.52-1.04) mg/dL Est GFR (CKD-EPI)AfAm >90 (>60 ml/min/1.73 sqM) Est GFR (CKD-EPI)NonAf >90 (>60 ml/min/1.73 sqM) Glucose 307 H (74-99) mg/dL Calcium 9.5 (8.4-10.2) mg/dL Total Bilirubin 0.4 (0.2-1.3) mg/dL AST 15 (14-36) U/L ALT 39 (9-52) U/L Alkaline Phosphatase 106 (38-126) U/L Creatine Kinase 35 (30-135) U/L C-Reactive Protein 29.2 H (<10.0) mg/L Total Protein 6.6 (6.3-8.2) g/dL Albumin 3.8 (3.5-5.0) g/dL Disposition Clinical Impression: Inflammatory arthropathy Disposition: ADMITTED IP TO THIS HOSP Is patient prescribed a controlled substance at d/c from ED?: No Referrals: Teresa Jose DO [Primary Care Provider] - 1-2 days
[2018-05-02] MEDS ORDERED: SODIUM CHLORIDE 0.9% 1,000 ML IV ONE (03:11)
[2018-05-02] MEDS ORDERED: KETOROLAC 30 MG/ML 1 ML VIAL IVP STA (03:36)
--- NOTE | 2018-05-02 03:50 | XR ---
EXAM: XR Left Shoulder Complete, 2 or More Views CLINICAL HISTORY: Pain TECHNIQUE: Two or more views of the left shoulder. COMPARISON: No relevant prior studies available. FINDINGS: Bones/joints: No acute fracture or dislocation. Soft tissues: Unremarkable. IMPRESSION: No acute fracture or dislocation.
[2018-05-02 03:55] LABS: Basophils # (A) 0.1 k/uL (0-0.2); Basophils % (A) 1 %; Eosinophils # (A) 0.2 k/uL (0-0.7); Eosinophils % (A) 2 %; HCT 42.4 % (34.0-46.0); HGB 13.9 gm/dL (11.4-16.0); Lymphocytes # (A) 7.1 k/uL (1.0-4.8); Lymphocytes % (A) 45 %; MCH 29.1 pg (25.0-35.0); MCHC 32.8 g/dL (31.0-37.0); MCV 88.8 fL (80.0-100.0); Mean Platelet Volume 7.8; Monocytes % (A) 6 %; Neutrophils # (A) 6.9 k/uL (1.3-7.7); Neutrophils % (A) 44 %; Platelet Count 302 k/uL (150-450); RBC 4.77 m/uL (3.80-5.40); RDW 13.3 % (11.5-15.5); WBC 15.6 k/uL (3.8-10.6)
[2018-05-02 04:02] LABS: ALT 39 U/L (9-52); AST 15 U/L (14-36); Albumin 3.8 g/dL (3.5-5.0); Alkaline Phosphatase 106 U/L (38-126); Anion Gap 9 mmol/L; Blood Urea Nitrogen 14 mg/dL (7-17); C Reactive Protein 29.2 mg/L (<10.0); Calcium 9.5 mg/dL (8.4-10.2); Carbon Dioxide 25 mmol/L (22-30); Chloride 101 mmol/L (98-107); Glucose 307 mg/dL (74-99); Potassium 4.6 mmol/L (3.5-5.1); Sodium 135 mmol/L (137-145); Total Bilirubin 0.4 mg/dL (0.2-1.3); Total Protein 6.6 g/dL (6.3-8.2)
[2018-05-02 04:23] LABS: Anisocytosis (M) Present
[2018-05-02] MEDS ORDERED: NALOXONE 0.4 MG/ML 1 ML VIAL IV PRN (05:23)
[2018-05-02] MEDS ORDERED: ACETAMINOPHEN TAB 325 MG TAB PO PRN (05:23)
[2018-05-02] MEDS ORDERED: IBUPROFEN 400 MG TAB PO PRN (05:23)
[2018-05-02] MEDS ORDERED: KETOROLAC 30 MG/ML 1 ML VIAL IVP SCH (06:00)
[2018-05-02] MEDS: SODIUM CHLORIDE 0.9% 1,000 ML IV SCH ×2 (06:05→19:50)
[2018-05-02] MEDS: MORPHINE SULFATE 4 MG/ML SYRINGE IV PRN ×2 (06:05→10:20)
[2018-05-02 07:28] LABS: Glucose,Whole Blood 309 mg/dL (75-99)
[2018-05-02] MEDS ORDERED: INSULIN ASPART (NovoLOG) 100 UNIT/ML VIAL SQ SCH (07:30)
--- NOTE | 2018-05-02 07:48 | P.HPIM ---
History of Present Illness H&P Date: 05/02/18 Patient is a 47-year-old female with a PMH of diabetes mellitus, seizure disorder, hypertension, hyperthyroidism, and chronic lower back pain who presented to the ED for left shoulder pain since the past 3 days. The patient notes that the pain started insidiously and gradually worsened, and is presently at 10 out of 10. Pain is worsened with movement, and is radiating down her left hand. The patient denied any falls, trauma to the shoulder, insect bites, or pain elsewhere. She also notes that she has never had such symptoms before and has not had such focal joint pain in the past. She otherwise denied fever, chills, recent travel, sick contacts, skin changes, chest pain, shortness of breath, nausea, vomiting, or diarrhea, or urinary complaints. Patient notes that her last seizure was a month ago though she has been compliant with her medications. The patient underwent a comprehensive workup in the emergency room, WBC count 15.6, and CRP elevated to 29.2. A left shoulder x-rays revealed no fractures or dislocations. The patient is being admitted to medicine service for further evaluation of chest pain and orthopedic consult. Review of Systems Pertinent positives and negatives as discussed in HPI, a complete review of systems was performed and all other systems are negative. Past Medical History Past Medical History: Diabetes Mellitus, Hypertension, Seizure Disorder, Thyroid Disorder Additional Past Medical History / Comment(s): chronic low back pain-SLEEPS IN A RECLINER CHAIR. PAST FX L3 AND L5, herniated discs,migraines, UTI'S. Last seizure in march of 2018 History of Any Multi-Drug Resistant Organisms: None Reported Past Surgical History: Back Surgery, Cholecystectomy, Hysterectomy Additional Past Surgical History / Comment(s): PARTIAL HYSTERECTOMY Past Anesthesia/Blood Transfusion Reactions: Previous Problems w/ Anesthesia Additional Past Anesthesia/Blood Transfusion Reaction / Comment(s): "WENT INTO SHOCK WITH EPIDURAL" CLAUSTERPHOBIA Past Psychological History: Depression Additional Psychological History / Comment(s): LIVES WITH SPOUSE AND 2 DAUGHTERS. 2 PET DOGS. LIVES IN 2 STORY HOUSE THAT HAS 1 FRONT STEP. 12 STEPS TO 2ND FLOOR AND 8 BASEMENT STEPS. NO HOME CARE SERVICES. USES A WALKER WHEN UP Smoking Status: Former smoker Past Alcohol Use History: None Reported Additional Past Alcohol Use History / Comment(s): STARTED SMOKING AT AGE 14(1984 ), QUIT 2004, SMOKED 1/2 PPD Past Drug Use History: None Reported - Past Family History Father Family Medical History: No Reported History Mother Additional Family Medical History / Comment(s): PROBLEMS W/ALLERGIES Medications and Allergies Home Medications Medication Instructions Recorded Confirmed Type Lisinopril [Zestril] 10 mg PO DAILY 08/08/14 10/26/17 History glipiZIDE [Glucotrol] 20 mg PO BID 08/08/14 10/26/17 History Levothyroxine Sodium [Synthroid] 175 mcg PO DAILY 03/15/16 10/26/17 History Ascorbic Acid [Vitamin C] 1,000 mg PO DAILY 02/22/17 10/26/17 History Aspirin [Adult Low Dose Aspirin EC] 81 mg PO DAILY 02/22/17 10/26/17 History Cholecalciferol [Vitamin D3] 1,000 unit PO DAILY 02/22/17 10/26/17 History Diazepam [Valium] 10 mg PO BID 02/22/17 10/26/17 History HYDROcodone/APAP 5-325MG [[place] 2 tab PO TID PRN 02/22/17 10/26/17 History 5-325] Multivitamins, Thera [Multivitamin 1 tab PO DAILY 02/22/17 10/26/17 History (formulary)] Vitamin B Complex 1 cap PO DAILY 02/22/17 10/26/17 History Vitamin C/Biotin [Hair, Skin and 1 tab PO DAILY 02/22/17 10/26/17 History Nails] Vitamin E 100 unit PO DAILY 02/22/17 10/26/17 History Escitalopram [Lexapro] 10 mg PO DAILY 04/12/17 10/26/17 History Gabapentin [Neurontin] 600 mg PO TID 04/13/17 10/26/17 History Insulin Detemir [Levemir] 30 unit SQ HS syr 06/25/17 10/26/17 Rx Cyclobenzaprine [Flexeril] 10 mg PO TID #12 tab 08/02/17 10/26/17 Rx Albuterol Inhaler [Ventolin Hfa 2 puff INHALATION RT-Q6H PRN 08/08/17 10/26/17 History Inhaler] amLODIPine [Norvasc] 10 mg PO DAILY 09/14/17 10/26/17 History Omeprazole 20 mg PO BID 10/12/17 10/26/17 History Atorvastatin [Lipitor] 40 mg PO DAILY 10/19/17 10/26/17 History INSULIN LISPRO (humaLOG) [humaLOG] 10 units SQ TID-W/MEALS 10/19/17 10/26/17 History Allergies Allergy/AdvReac Type Severity Reaction Status Date / Time bupivacaine Allergy "went into Verified 05/02/18 02:35 shock" fentanyl Allergy Rash/Hives Verified 05/02/18 02:35 Physical Exam Vitals: Vital Signs Temp Pulse Pulse Resp BP BP Pulse Ox 05/02/18 06:21 98.5 F 81 18 127/82 96 05/02/18 02:32 98.0 F 80 18 108/69 96 Intake and Output 05/01/18 05/02/18 05/02/18 22:59 06:59 14:59 Other: Weight 117.934 kg General: non toxic, no distress, appears at stated age, morbidly obese Derm: no unusual rashes/lesions no unusual ecchymoses, warm, dry Head: atraumatic, normocephalic, symmetric Eyes: EOMI, no lid lag, anicteric sclera, pupils equal round reactive to light ENT: Nose and ears atraumatic, no thrush, no pharyngeal erythema Neck: No thyromegaly, no cervical lymphadenopathy, trachea midline, supple Mouth: no lip lesion, mucus membranes moist Cardiovascular: S1S2 reg, no murmur, positive posterior tibial pulse bilateral, no edema, capillary refill less than 2 seconds Lungs: CTA bilateral, no rhonchi, no rales , no accessory muscle use Abdominal: soft, nontender to palpation, no guarding, no appreciable organomegaly, normal bowel sounds Ext: Left shoulder anterior tenderness, no erythema, warmth, overlying skin changes noted. Decreased range of motion of left shoulder secondary to pain. Distal left upper extremity strength 5 out of 5, muscle strength 5 out of 5 in all 4 extremities, no contractures Neuro: CN II-XI grossly intact, light touch intact all 4 extremities, finger to nose within normal limits, Psych: Alert, oriented, appropriate affect Results CBC & Chem 7: 05/02/18 03:10 05/02/18 03:10 Labs: Abnormal Lab Results - Last 24 Hours (Table) 02/12/19 02/12/19 02/12/19 Range/Units 03:10 03:10 07:26 WBC 15.6 H (3.8-10.6) k/uL Lymphocytes # 7.1 H (1.0-4.8) k/uL Sodium 135 L (137-145) mmol/L Glucose 307 H (74-99) mg/dL POC Glucose (mg/dL) 309 H (75-99) mg/dL C-Reactive Protein 29.2 H (<10.0) mg/L Thrombosis Risk Factor Assmnt - Choose All That Apply Any of the Below Risk Factors Present?: Yes Each Factor Represents 1 point: Age 41-60 years, Obesity (BMI >25) Other Risk Factors: Yes Thrombosis Risk Factor Assessment Total Risk Factor Score: 2 Thrombosis Risk Factor Assessment Level: Low Risk Assessment and Plan Plan: Left shoulder pain, in setting of elevated inflammatory markers -Orthopedic consult -Continue with pain control -Monitor CRP and WBC counts Seizure disorder -Fall, seizure, aspiration precautions -Resume home meds Diabetes mellitus -Lispro sliding scale, with fingersticks Hypertension -Resume home meds Hypothyroidism -Resume home meds DVT//GI prophylaxis -Heparin -Protonix The patient is admitted with an anticipated less than 2 midnight stay for evaluation of left shoulder pain. CODE STATUS: Full code Discussed with: Patient Anticipated discharge date: 05/04/[address]: Home A total of 45 minutes was spent on the care of this complex patient more than 50 % of the time was spent in counseling and care coordination.
--- NOTE | 2018-05-02 10:08 | P.PN ---
Progress Note - Text Progress Note Date: 05/02/18 47-year-old female with history of hypertension diabetes and seizures. Presented due to 3 day history of worsening left shoulder pain with limited range of motion denies any recent traumas or any similar symptoms in the past. Patient otherwise denies any symptoms suggestive of acute infection. X-rays in the ER showed no acute fractures Home medications reconciled and verified with the patient. Pending orthopedic evaluation differential diagnnosis Subacromial bursitis Rotator cuff tendinitis
[2018-05-02] MEDS ORDERED: NON-FORMULARY DRUG (Omeprazole [Omeprazole] 20 MG) PO SCH (10:15)
[2018-05-02] MEDS: GABAPENTIN 300 MG CAP PO SCH ×3 (10:19→21:10)
[2018-05-02] MEDS: LISINOPRIL 10 MG TAB PO SCH (10:19)
[2018-05-02] MEDS: ATORVASTATIN 40 MG TAB PO SCH (10:19)
[2018-05-02] MEDS: amLODIPine 5 MG TAB PO SCH (10:19)
[2018-05-02] MEDS: HEPARIN SODIUM,PORCINE 5,000 UNIT/ML 1 ML VIAL SQ SCH ×3 (10:20→23:48)
[2018-05-02] MEDS: ESCITALOPRAM 10 MG TAB PO SCH (10:27)
[2018-05-02] MEDS: TOPIRAMATE 25 MG TAB PO SCH ×2 (10:27→21:09)
[2018-05-02] MEDS: LEVOTHYROXINE 88 MCG TAB PO SCH (10:28)
[2018-05-02 12:09] LABS: Glucose,Whole Blood 278 mg/dL (75-99)
[2018-05-02] MEDS ORDERED: INSULIN NPH 300 UNIT/3 ML VIAL SQ STA (12:15)
[2018-05-02] MEDS: INSULIN ASPART (NovoLOG) 100 UNIT/ML VIAL SQ SCH ×4 (12:38→17:09)
[2018-05-02] MEDS: KETOROLAC 30 MG/ML 1 ML VIAL IVP SCH ×3 (12:39→23:48)
--- NOTE | 2018-05-02 15:54 | P.CNOR ---
History of Present Illness - [facility] Consult date: 05/02/18 Consult reason: joint pain History of present illness: Patient is a 47-year-old female who was admitted to [facility] on early this morning with regards to severe pain involving her left shoulder. Patient states the pain has been present for about 3 days. She takes [place] for chronic back pain, she was using that along with ibuprofen, pain did not improve. Upon arrival to the hospital this morning, imaging and lab tests were done. Images demonstrated no acute fractures or dislocations involving the shoulder. Labs did reveal an elevated white blood cell count. Patient was admitted under internal medicine for further workup and pain control , however orthopedic team was then consult with regards to left shoulder. Patient denies any previous surgery involving the left shoulder. She does have a history of chronic low back pain, she's had a few different surgeries. She does take oral pain medication for this. She has a history of diabetes along with hyperthyroidism. Patient does have a history of both and elevated and decreased white blood cell count. She states that she has seen a doctor at [facility], she cannot provide a diagnosis or reasoning at this time. At bedside today, patient is resting comfortably. She did receive IV pain medication about half before I arrived. She notes most of discomfort over the anterior glenohumeral joint. She states initially the pain didn't radiate from the neck into the shoulder down to the mid forearm. She described as a sharp type of pain. She denies any numbness or tingling involving the bilateral upper extremities. She denies any previous history of cervical spine problems. She denies any recent change in activity or traumatic event. She denies any fevers or chills at this time. She denies any chest pain or shortness of breath. Review of Systems Constitutional: Reports as per HPI Past Medical History Past Medical History: Diabetes Mellitus, Hypertension, Seizure Disorder, Thyroid Disorder Additional Past Medical History / Comment(s): chronic low back pain-SLEEPS IN A RECLINER CHAIR. PAST FX L3 AND L5, herniated discs,migraines, UTI'S. Last seizure in march of 2018 History of Any Multi-Drug Resistant Organisms: None Reported Past Surgical History: Back Surgery, Cholecystectomy, Hysterectomy Additional Past Surgical History / Comment(s): PARTIAL HYSTERECTOMY Past Anesthesia/Blood Transfusion Reactions: Previous Problems w/ Anesthesia Additional Past Anesthesia/Blood Transfusion Reaction / Comm: "WENT INTO SHOCK WITH EPIDURAL" CLAUSTERPHOBIA Past Psychological History: Depression Additional Psychological History / Comment(s): LIVES WITH SPOUSE AND 2 DAUGHTERS. 2 PET DOGS. LIVES IN 2 STORY HOUSE THAT HAS 1 FRONT STEP. 12 STEPS TO 2ND FLOOR AND 8 BASEMENT STEPS. NO HOME CARE SERVICES. USES A WALKER WHEN UP Smoking Status: Former smoker Past Alcohol Use History: None Reported Additional Past Alcohol Use History / Comment(s): STARTED SMOKING AT AGE 14(1984 ), QUIT 2004, SMOKED 1/2 PPD Past Drug Use History: None Reported - Past Family History Father Family Medical History: No Reported History Mother Additional Family Medical History / Comment(s): PROBLEMS W/ALLERGIES Medications and Allergies Home Medications Medication Instructions Recorded Confirmed Type Lisinopril [Zestril] 10 mg PO DAILY 08/08/14 05/02/18 History glipiZIDE [Glucotrol] 20 mg PO BID 08/08/14 05/02/18 History Levothyroxine Sodium [Synthroid] 175 mcg PO DAILY 03/15/16 05/02/18 History Gabapentin [Neurontin] 600 mg PO TID 04/13/17 05/02/18 History Omeprazole 20 mg PO BID 10/12/17 05/02/18 History Atorvastatin [Lipitor] 40 mg PO DAILY 10/19/17 05/02/18 History INSULIN LISPRO (humaLOG) [humaLOG] 10 units SQ TID-W/MEALS 10/19/17 05/02/18 History Escitalopram [Lexapro] 10 mg PO DAILY 05/02/18 05/02/18 History Insulin Glargine [Lantus] 30 unit SQ HS 05/02/18 05/02/18 History Topiramate [Topamax] 50 mg PO BID 05/02/18 05/02/18 History amLODIPine [Norvasc] 5 mg PO DAILY 05/02/18 05/02/18 History Allergies Allergy/AdvReac Type Severity Reaction Status Date / Time bupivacaine Allergy "went into Verified 05/02/18 09:27 shock" fentanyl Allergy Rash/Hives Verified 05/02/18 09:27 Physical Examination Left upper extremity: No obvious open lesions or sores visualized to the extremity, no obvious areas of erythema or soft tissue swelling. Patient's body habitus makes bony prominences difficult to palpate on exam She is tender with palpation of the anterior glenoid humeral joint line Active range of motion is limited due to pain Passive range of motion, minimal discomfort is reproduced with forward flexion with slight internal and external rotation More pain is reproduced with assisted abduction of the shoulder Her sensory exam to light touch is intact throughout the extremity Range of motion of the elbow and hand and wrist are intact Strength testing was not assessed Radial pulses 2+ Results - Labs Labs: Abnormal Lab Results - Last 24 Hours (Table) 05/02/18 05/02/18 05/02/18 Range/Units 03:10 03:10 07:26 WBC 15.6 H (3.8-10.6) k/uL Lymphocytes # 7.1 H (1.0-4.8) k/uL Sodium 135 L (137-145) mmol/L Glucose 307 H (74-99) mg/dL POC Glucose (mg/dL) 309 H (75-99) mg/dL C-Reactive Protein 29.2 H (<10.0) mg/L 05/02/18 Range/Units 12:08 WBC (3.8-10.6) k/uL Lymphocytes # (1.0-4.8) k/uL Sodium (137-145) mmol/L Glucose (74-99) mg/dL POC Glucose (mg/dL) 278 H (75-99) mg/dL C-Reactive Protein (<10.0) mg/L H & H 05/02/18 Range/Units 03:10 Hgb 13.9 (11.4-16.0) gm/dL Hct 42.4 (34.0-46.0) % Result Diagrams: 05/02/18 03:10 05/02/18 03:10 - Diagnostic results Shoulder x-ray: report reviewed, image reviewed Assessment and Plan Plan: Imaging: Views of the left shoulder obtained, I was able to review images and report. Images demonstrated no acute fractures or dislocations. Assessment: 1. Left shoulder pain 2. Likely left-sided cervical radiculopathy 3. Possible left shoulder bursitis/adhesive capsulitis 4. Leukocytosis 5. Other medical comorbidities Plan: I was able to discuss the case, including the physical exam findings imaging studies with my attending Dr. Souza. At this time I believe her symptoms present as a cervical radiculopathy. Very unlikely there is an infective process at this time. Due to no recent change in activity or trauma, unlikely rotator cuff tendinitis or subacromial bursitis. Recommend neurologic workup, this will have to be done in the outpatient setting due to no inpatient coverage Patient may benefit from a steroid taper, would recommend internal medicine to approve and dose His symptoms don't improve, recommend evaluation by pain management Pain control, per medical recommendations GI and DVT prophylaxis per medical recommendations No orthopedic surgical intervention at this time, we will be available for any further questions regarding this patient Time with Patient: Less than 30
[2018-05-02 16:15] VITALS: RESP 16
[2018-05-02 17:02] LABS: Glucose,Whole Blood 293 mg/dL (75-99)
[2018-05-02 18:40] LABS: Hemoglobin A1C 10.4 % (4.0-6.0)
[2018-05-02 20:33] LABS: Glucose,Whole Blood 273 mg/dL (75-99)
[2018-05-02] MEDS ORDERED: INSULIN DETEMIR (LEVEMIR) 100 UNIT/ML SYR SQ SCH (21:00)
[2018-05-03 00:29] VITALS: TEMP 97.9
[2018-05-03 02:04] LABS: Glucose,Whole Blood 278 mg/dL (75-99)
[2018-05-03] MEDS: MORPHINE SULFATE 4 MG/ML SYRINGE IV PRN ×2 (02:30→08:38)
[2018-05-03] MEDS: KETOROLAC 30 MG/ML 1 ML VIAL IVP SCH ×2 (05:48→14:36)
[2018-05-03] MEDS: LEVOTHYROXINE 88 MCG TAB PO SCH (05:48)
[2018-05-03] MEDS: SODIUM CHLORIDE 0.9% 1,000 ML IV SCH (05:51)
[2018-05-03 06:55] LABS: Glucose,Whole Blood 241 mg/dL (75-99)
[2018-05-03] MEDS ORDERED: PANTOPRAZOLE 40 MG TABLET PO SCH (07:30)
[2018-05-03] MEDS: INSULIN ASPART (NovoLOG) 100 UNIT/ML VIAL SQ SCH ×4 (08:36→13:21)
[2018-05-03] MEDS: HEPARIN SODIUM,PORCINE 5,000 UNIT/ML 1 ML VIAL SQ SCH (08:38)
[2018-05-03] MEDS: amLODIPine 5 MG TAB PO SCH (08:39)
[2018-05-03] MEDS: ESCITALOPRAM 10 MG TAB PO SCH (08:39)
[2018-05-03] MEDS: LISINOPRIL 10 MG TAB PO SCH (08:39)
[2018-05-03] MEDS: GABAPENTIN 300 MG CAP PO SCH (08:39)
[2018-05-03] MEDS: ATORVASTATIN 40 MG TAB PO SCH (08:40)
[2018-05-03] MEDS: TOPIRAMATE 25 MG TAB PO SCH (08:40)
--- NOTE | 2018-05-03 09:35 | P.DS ---
Providers Date of admission: 05/02/18 05:26 Expected date of discharge: 05/03/18 Attending physician: Pietro Rueda MD Consults: 05/02/18 05:24 Consult Physician Urgent Consulting Provider: Mukul Souza Consult Reason/Comments: shoulder pain Do you want consulting provider notified?: Yes, Notify in am Primary care physician: Teresa Jose Hospital Course: Final diagnosis at discharge Left shoulder pain due to possible diagnosis of adhesive capsulitis or bursitis of your left shoulder possibility of cervical radiculopathy Secondary diagnosis Diabetes mellitus History of seizures Hypertension Obesity Consultations Orthopedic Hospital course 47-year-old female with history of hypertension diabetes and seizures. Presented due to 3 day history of worsening left shoulder pain with limited range of motion denies any recent traumas or any similar symptoms in the past. Patient otherwise denies any symptoms suggestive of acute infection. X-rays in the ER showed no acute fractures or dislocation Home medications reconciled and verified with the patient. Orthopedic services if elevated the patient and felt that there is no need for any immediate surgical intervention Achieved pain control and some improvement in her range of motion with Toradol while inpatient Patient seen and examined on day of discharge Constitutional: vital signs stable, Not in acute distress, pleasant, conversant Lungs: Clear to auscultation bilaterally, clear to percussion, normal respiratory effort no use of accessory muscles Cardiovascular: Regular rate and rhythm, no murmurs, no gallops, no rubs, no peripheral edema Gastrointestinal: Soft, no tenderness to palpation, no palpable hepatosplenomegally, bowel sounds positive, no abdominal wall hernias Extremities: No digital cyanosis or clubbing, peripheral pulses palpable and equal over bilateral radial arteries and dorsalis pedis artery, no calf muscle tenderness Psych: Alert, oriented to place, person and time, appropriate affect, intact judgment Neuro: Cranial nerves II-XII grossly intact, no focal sensory deficits to touch Left shoulder range of motion improved compared to initial presentation however still limited by pain upon doing active abduction of the left shoulder. No visible swelling or skin changes over the left shoulder no increased warmth to touch. Tenderness upon palpation of the anterior aspect of the left shoulder over the glenohumeral joint. Follow-up with PCP Follow-up with neurology per orthopedic recommendations to rule out cervical radiculopathy take the medrol dose pack as prescribed additional dose of insulin per sliding scale as needed as explained to you while on the medrol dose pack take ibuprofen with meals as prescribed continue to move your shoulder in full range of motion as discussed avoid heavy lifting 30 minutes were spent discharging this patient, and more than 50% of the time was spent in counseling the patient and family and in coordinating care. Patient Condition at Discharge: Good Plan - Discharge Summary Discharge Rx Participant: No New Discharge Prescriptions: New Acetaminophen Tab [Tylenol] 650 mg PO Q6HR PRN tab PRN Reason: Mild Pain Or Fever > 100.5 Ibuprofen 600 mg PO QID PRN #30 tablet PRN Reason: Pain INSULIN LISPRO (HumaLOG) [humaLOG] See Protocol SQ ACHS #1 vial methylPREDNISolone Dose Pack [Medrol Dose Pack] 4 mg PO DIRECTED #21 package Continue glipiZIDE [Glucotrol] 20 mg PO BID Lisinopril [Zestril] 10 mg PO DAILY Levothyroxine Sodium [Synthroid] 175 mcg PO DAILY Gabapentin [Neurontin] 600 mg PO TID Omeprazole 20 mg PO BID Atorvastatin [Lipitor] 40 mg PO DAILY INSULIN LISPRO (humaLOG) [humaLOG] 10 units SQ TID-W/MEALS Topiramate [Topamax] 50 mg PO BID amLODIPine [Norvasc] 5 mg PO DAILY Escitalopram [Lexapro] 10 mg PO DAILY Insulin Glargine [Lantus] 30 unit SQ HS Hydrocodone/Acetaminophen [[place] 5-325] 2 tab PO Q8H PRN PRN Reason: back pain Discharge Medication List Lisinopril [Zestril] 10 mg PO DAILY 08/08/14 [History] glipiZIDE [Glucotrol] 20 mg PO BID 08/08/14 [History] Levothyroxine Sodium [Synthroid] 175 mcg PO DAILY 03/15/16 [History] Gabapentin [Neurontin] 600 mg PO TID 04/13/17 [History] Omeprazole 20 mg PO BID 10/12/17 [History] Atorvastatin [Lipitor] 40 mg PO DAILY 10/19/17 [History] INSULIN LISPRO (humaLOG) [humaLOG] 10 units SQ TID-W/MEALS 10/19/17 [History] Escitalopram [Lexapro] 10 mg PO DAILY 05/02/18 [History] Insulin Glargine [Lantus] 30 unit SQ HS 05/02/18 [History] Topiramate [Topamax] 50 mg PO BID 05/02/18 [History] amLODIPine [Norvasc] 5 mg PO DAILY 05/02/18 [History] Acetaminophen Tab [Tylenol] 650 mg PO Q6HR PRN tab 05/03/18 [Rx] Hydrocodone/Acetaminophen [[place] 5-325] 2 tab PO Q8H PRN 05/03/18 [History] INSULIN LISPRO (HumaLOG) [humaLOG] See Protocol SQ ACHS #1 vial 05/03/18 [Rx] Ibuprofen 600 mg PO QID PRN #30 tablet 05/03/18 [Rx] methylPREDNISolone Dose Pack [Medrol Dose Pack] 4 mg PO DIRECTED #21 package 05/03/18 [Rx] Follow up Appointment(s)/Referral(s): Teresa Jose DO [Primary Care Provider] - 1-2 days Serenity Oliva MD [Medical Doctor] - 1 Week Patient Instructions/Handouts: Insulin Scale C (MPH), Adhesive Capsulitis (GEN) , Cervical Radiculopathy (GEN) Activity/Diet/Wound Care/Special Instructions: possible diagnosis of adhesive capsulitis or bursitis of your left shoulder take the medrol dose pack as prescribed additional dose of insulin per sliding scale as needed as explained to you while on the medrol dose pack take ibuprofen with meals as prescribed continue to move your shoulder in full range of motion as discussed avoid heavy lifting follow up with neurology to rule out possibility of cervical radiculopathy
[2018-05-03 11:24] LABS: Glucose,Whole Blood 307 mg/dL (75-99)
[2018-05-03 11:38] VITALS: BP 104/57; PULSE 68
== END 2018-05-03 13:50 | disposition home or self-care (01) ==
LOC: EC 02:23 → 4SSUR 05:26
PROVIDERS: ADMIT Internal Medicine; ATTEND Internal Medicine
DX: M25.512 Pain in left shoulder (principal); D72.829 Elevated white blood cell count, unspecified; R79.82 Elevated C-reactive protein (CRP); E11.9 Type 2 diabetes mellitus without complications; I10 Essential (primary) hypertension; G89.29 Other chronic pain; M79.18 Myalgia, other site; M54.5 Low back pain; Z79.890 Hormone replacement therapy; E66.9 Obesity, unspecified; Z68.39 Body mass index [BMI] 39.0-39.9, adult; G40.909 Epilepsy, unspecified, not intractable, without status epilepticus; G43.909 Migraine, unspecified, not intractable, without status migrainosus; Z90.49 Acquired absence of other specified parts of digestive tract; Z90.711 Acquired absence of uterus with remaining cervical stump; F40.240 Claustrophobia; F32.9 Major depressive disorder, single episode, unspecified; E03.9 Hypothyroidism, unspecified; Z79.4 Long term (current) use of insulin; Z79.82 Long term (current) use of aspirin; Z79.899 Other long term (current) drug therapy; Z88.4 Allergy status to anesthetic agent; Z88.5 Allergy status to narcotic agent; Z87.81 Personal history of (healed) traumatic fracture; Z87.440 Personal history of urinary (tract) infections; Z87.891 Personal history of nicotine dependence
CPT/HCPCS: 96376 ×2; 96361 ×3; 96372 ×2; 96374; 96375; 99285; 36415; 80053; 82550; 85025; 86140; 83036; 73020; G0378 ×2; J2270 ×2; J1644 ×2; J1885 ×2

== ENCOUNTER → 2018-05-08 | Outpatient (CLI) | payer OTHER ==
--- NOTE | 2018-05-08 16:37 | CT ---
EXAMINATION TYPE: CT lumbar spine wo con DATE OF EXAM: 05/08/2018 COMPARISON: None HISTORY: Low back pain x [address] DLP: 1328 mGycm CONTRAST: None TECHNIQUE: CT of the lumbar spine is performed on a spiral scan at 3 mm thick sections. Reconstructed images are performed in the coronal and sagittal planes. FINDINGS: T12-L1: No focal disc herniation or significant disc bulge is evident. No spinal canal stenosis or neural foraminal stenosis is present. L1-L2: No focal disc herniation or significant disc bulge is evident. No spinal canal stenosis or n eural foraminal stenosis is present L2-L3: No focal disc herniation or significant disc bulge is evident. No spinal canal stenosis or n eural foraminal stenosis is present L3-L4: No focal disc herniation or significant disc bulge is evident. No spinal canal stenosis or n eural foraminal stenosis is present L4-L5: No focal disc herniation or significant disc bulge is evident. No spinal canal stenosis or n eural foraminal stenosis is present L5-S1: There is loss of disc height is level. Endplate spurring has moderate anterior thecal sac comp ression. Moderate anterior thecal sac compression is present. Vertebral alignment appears normal. IMPRESSION: Degenerative disc changes endplate spurring causing moderate anterior thecal sac compression is
== END | disposition home or self-care (01) ==
LOC: RADCTMAIN 10:56
PROVIDERS: ATTEND Neurological Surgery
DX: M51.16 Intervertebral disc disorders with radiculopathy, lumbar region (principal)
CPT/HCPCS: 72131

== ENCOUNTER 2018-06-11 15:56 | Observation (INO) | payer OTHER ==
[2018-06-11] MEDS ORDERED: IPRATROPIUM-ALBUTEROL 3 ML NEB INHALATION STA (16:15)
[2018-06-11] MEDS ORDERED: DEXAMETHASONE SOD PHOSPHATE 10 MG/ML 1 ML VIAL IV STA (16:15)
[2018-06-11] MEDS ORDERED: ALBUTEROL NEBULIZED 2.5 MG/3 ML INHALATION STA (16:15)
--- NOTE | 2018-06-11 16:18 | ED ---
General Adult HPI - General Chief complaint: Chest Pain Stated complaint: CHEST PAIN Time Seen by Provider: 06/11/18 15:57 Source: patient, EMS, RN notes reviewed Mode of arrival: EMS Limitations: no limitations - History of Present Illness Initial comments: 48-year-old female resents for evaluation of chest pain. Patient developed chest pain this morning approximately 10 AM, 6 hours prior to arrival. Initially began as central chest pain predominantly radiating to the right side of her chest. This was worse with deep inspiration. She described it to be sharp at times. Also constant chest pressure. She said cough and sinus pressure for the past 4 days. She was started on amoxicillin by her primary care physician with these symptoms patient has had cough and has history of asthma. Denies fever or chills. Denies lower extremity pain or swelling. No history of coronary artery disease. She does have history of type 2 diabetes and is a former smoker. - Related Data Home Medications Medication Instructions Recorded Confirmed Lisinopril [Zestril] 10 mg PO DAILY 08/08/14 05/02/18 glipiZIDE [Glucotrol] 20 mg PO BID 08/08/14 05/02/18 Levothyroxine Sodium [Synthroid] 175 mcg PO DAILY 03/15/16 05/02/18 Gabapentin [Neurontin] 600 mg PO TID 04/13/17 05/02/18 Omeprazole 20 mg PO BID 10/12/17 05/02/18 Atorvastatin [Lipitor] 40 mg PO DAILY 10/19/17 05/02/18 INSULIN LISPRO (humaLOG) [humaLOG] 10 units SQ TID-W/MEALS 10/19/17 05/02/18 Escitalopram [Lexapro] 10 mg PO DAILY 05/02/18 05/02/18 Insulin Glargine [Lantus] 30 unit SQ HS 05/02/18 05/02/18 Topiramate [Topamax] 50 mg PO BID 05/02/18 05/02/18 amLODIPine [Norvasc] 5 mg PO DAILY 05/02/18 05/02/18 Hydrocodone/Acetaminophen [[place] 2 tab PO Q8H PRN 05/03/18 05/03/18 5-325] Previous Rx's Medication Instructions Recorded Acetaminophen Tab [Tylenol] 650 mg PO Q6HR PRN tab 05/03/18 INSULIN LISPRO (HumaLOG) [humaLOG] See Protocol SQ ACHS #1 vial 05/03/18 Ibuprofen 600 mg PO QID PRN #30 tablet 05/03/18 methylPREDNISolone Dose Pack 4 mg PO DIRECTED #21 package 05/03/18 [Medrol Dose Pack] Allergies Allergy/AdvReac Type Severity Reaction Status Date / Time bupivacaine Allergy "went into Verified 06/11/18 17:39 shock" fentanyl Allergy Rash/Hives Verified 06/11/18 17:39 Review of Systems ROS Statement: Those systems with pertinent positive or pertinent negative responses have been documented in the HPI. ROS Other: All systems not noted in ROS Statement are negative. Past Medical History Past Medical History: Diabetes Mellitus, Hypertension, Seizure Disorder, Thyroid Disorder Additional Past Medical History / Comment(s): chronic low back pain-SLEEPS IN A RECLINER CHAIR. PAST FX L3 AND L5, herniated discs,migraines, UTI'S. Last seizure in march of 2018 History of Any Multi-Drug Resistant Organisms: None Reported Past Surgical History: Back Surgery, Cholecystectomy, Hysterectomy Additional Past Surgical History / Comment(s): PARTIAL HYSTERECTOMY Past Anesthesia/Blood Transfusion Reactions: Previous Problems w/ Anesthesia Additional Past Anesthesia/Blood Transfusion Reaction / Comment(s): "WENT INTO SHOCK WITH EPIDURAL" CLAUSTERPHOBIA Past Psychological History: Depression Smoking Status: Former smoker Past Alcohol Use History: None Reported Past Drug Use History: None Reported - Past Family History Father Family Medical History: No Reported History Mother Additional Family Medical History / Comment(s): PROBLEMS W/ALLERGIES General Exam Limitations: no limitations General appearance: alert, in no apparent distress Head exam: Present: atraumatic, normocephalic Eye exam: Present: normal appearance, PERRL ENT exam: Present: normal exam Neck exam: Present: normal inspection. Absent: tenderness, meningismus Respiratory exam: Present: wheezes, rhonchi. Absent: respiratory distress Cardiovascular Exam: Present: regular rate, normal rhythm GI/Abdominal exam: Present: soft. Absent: distended, tenderness Extremities exam: Present: normal inspection, normal capillary refill. Absent: pedal edema Neurological exam: Present: alert, oriented X3, CN II-XII intact. Absent: motor sensory deficit Psychiatric exam: Present: normal affect, normal mood Skin exam: Present: warm, dry, intact. Absent: cyanosis, diaphoretic Course Vital Signs 06/11/18 06/11/18 06/11/18 15:58 16:10 16:29 Temperature 98.3 F Pulse Rate 76 77 Pulse Rate [ 82 Apical] Respiratory 18 15 Rate Blood Pressure 122/67 O2 Sat by Pulse 100 Oximetry 06/11/18 06/11/18 16:38 18:25 Temperature 97.9 F Pulse Rate 72 86 Pulse Rate [ Apical] Respiratory 18 Rate Blood Pressure 106/61 O2 Sat by Pulse 98 Oximetry EKG Findings - EKG Comments: EKG Findings:: EKG: Normal sinus rhythm, low voltage rate of 75, DC interval 148, QRS duration 80, QTc 464 T WAVE Inversion in the inferior leads. No ST segment elevation Medical Decision Making - Medical Decision Making 48 yo female history of diabetes, previous tobacco use presents for evaluation of chest pain. Patient has both typical and atypical features. EKG shows T- wave inversion in the inferior leads, no ST segment elevation. Chest x-ray negative for focal pneumonia. Laboratory testing reveals mild leukocytosis, CMP is significant only for hyperglycemia. Troponin and d-dimer are negative. Patient will be kept in observation for serial cardiac enzymes given her risk factors. Cardiology placed on consult. Case discussed with Dr. Romo who will accept admission. - Lab Data Result diagrams: 06/11/18 16:25 06/11/18 18:11 Lab Results 06/11/18 06/11/18 06/11/18 Range/Units 16:25 16:25 16:25 WBC 11.5 H (3.8-10.6) k/uL RBC 5.06 (3.80-5.40) m/uL Hgb 14.6 (11.4-16.0) gm/dL Hct 45.5 (34.0-46.0) % MCV 89.9 (80.0-100.0) fL MCH 28.9 (25.0-35.0) pg MCHC 32.2 (31.0-37.0) g/dL RDW 14.0 (11.5-15.5) % Plt Count 243 (150-450) k/uL Neutrophils % 44 % Lymphocytes % 47 % Monocytes % 4 % Eosinophils % 2 % Basophils % 1 % Neutrophils # 5.0 (1.3-7.7) k/uL Lymphocytes # 5.4 H (1.0-4.8) k/uL Monocytes # 0.5 (0-1.0) k/uL Eosinophils # 0.2 (0-0.7) k/uL Basophils # 0.1 (0-0.2) k/uL Manual Slide Review Performed PT (9.0-12.0) sec INR (<1.2) APTT (22.0-30.0) sec D-Dimer (<0.60) mg/L FEU Sodium (137-145) mmol/L Potassium (3.5-5.1) mmol/L Chloride (98-107) mmol/L Carbon Dioxide (22-30) mmol/L Anion Gap mmol/L BUN (7-17) mg/dL Creatinine (0.52-1.04) mg/dL Est GFR (CKD-EPI)AfAm (>60 ml/min/1.73 sqM) Est GFR (CKD-EPI)NonAf (>60 ml/min/1.73 sqM) Glucose (74-99) mg/dL Calcium (8.4-10.2) mg/dL Magnesium (1.6-2.3) mg/dL Total Bilirubin (0.2-1.3) mg/dL AST (14-36) U/L ALT (9-52) U/L Alkaline Phosphatase (38-126) U/L Troponin I (0.000-0.034) ng/mL Total Protein (6.3-8.2) g/dL Albumin (3.5-5.0) g/dL Lipase (23-300) U/L Urine Color Yellow Urine Appearance Clear (Clear) Urine pH 6.0 (5.0-8.0) Ur Specific [place] 1.018 (1.001-1.035) Urine Protein Negative (Negative) Urine Glucose (UA) 4+ H (Negative) Urine Ketones Negative (Negative) Urine Blood Negative (Negative) Urine Nitrite Negative (Negative) Urine Bilirubin Negative (Negative) Urine Urobilinogen <2.0 (<2.0) mg/dL Ur Leukocyte Esterase Negative (Negative) Urine HCG, Qual Not Detected (Not Detectd) 06/11/18 06/11/18 06/11/18 Range/Units 16:25 18:11 19:52 WBC (3.8-10.6) k/uL RBC (3.80-5.40) m/uL Hgb (11.4-16.0) gm/dL Hct (34.0-46.0) % MCV (80.0-100.0) fL MCH (25.0-35.0) pg MCHC (31.0-37.0) g/dL RDW (11.5-15.5) % Plt Count (150-450) k/uL Neutrophils % % Lymphocytes % % Monocytes % % Eosinophils % % Basophils % % Neutrophils # (1.3-7.7) k/uL Lymphocytes # (1.0-4.8) k/uL Monocytes # (0-1.0) k/uL Eosinophils # (0-0.7) k/uL Basophils # (0-0.2) k/uL Manual Slide Review PT 9.5 (9.0-12.0) sec INR 0.9 (<1.2) APTT 23.8 (22.0-30.0) sec D-Dimer 0.34 (<0.60) mg/L FEU Sodium 138 (137-145) mmol/L Potassium 4.5 (3.5-5.1) mmol/L Chloride 104 (98-107) mmol/L Carbon Dioxide 23 (22-30) mmol/L Anion Gap 11 mmol/L BUN 15 (7-17) mg/dL Creatinine 0.49 L (0.52-1.04) mg/dL Est GFR (CKD-EPI)AfAm >90 (>60 ml/min/1.73 sqM) Est GFR (CKD-EPI)NonAf >90 (>60 ml/min/1.73 sqM) Glucose 369 H (74-99) mg/dL Calcium 9.3 (8.4-10.2) mg/dL Magnesium 1.6 (1.6-2.3) mg/dL Total Bilirubin 0.6 (0.2-1.3) mg/dL AST 26 (14-36) U/L ALT 39 (9-52) U/L Alkaline Phosphatase 97 (38-126) U/L Troponin I <0.012 (0.000-0.034) ng/mL Total Protein 6.9 (6.3-8.2) g/dL Albumin 4.0 (3.5-5.0) g/dL Lipase 77 (23-300) U/L Urine Color Urine Appearance (Clear) Urine pH (5.0-8.0) Ur Specific [place] (1.001-1.035) Urine Protein (Negative) Urine Glucose (UA) (Negative) Urine Ketones (Negative) Urine Blood (Negative) Urine Nitrite (Negative) Urine Bilirubin (Negative) Urine Urobilinogen (<2.0) mg/dL Ur Leukocyte Esterase (Negative) Urine HCG, Qual (Not Detectd) Disposition Clinical Impression: Chest pain Disposition: ADMITTED IP TO THIS HOSP Condition: Stable Is patient prescribed a controlled substance at d/c from ED?: No Referrals: Teresa Jose DO [Primary Care Provider] - 1-2 days Decision to Admit Reason: Admit from EC Decision Date: 06/11/18 Decision Time: 20:48
[2018-06-11 17:07] LABS: Basophils # (A) 0.1 k/uL (0-0.2); Basophils % (A) 1 %; Eosinophils # (A) 0.2 k/uL (0-0.7); Eosinophils % (A) 2 %; HCT 45.5 % (34.0-46.0); HGB 14.6 gm/dL (11.4-16.0); Lymphocytes # (A) 5.4 k/uL (1.0-4.8); Lymphocytes % (A) 47 %; MCH 28.9 pg (25.0-35.0); MCHC 32.2 g/dL (31.0-37.0); MCV 89.9 fL (80.0-100.0); Monocytes # (A) 0.5 k/uL (0-1.0); Monocytes % (A) 4 %; Neutrophils % (A) 44 %; Platelet Count 243 k/uL (150-450); RBC 5.06 m/uL (3.80-5.40); WBC 11.5 k/uL (3.8-10.6)
[2018-06-11 17:22] LABS: Appearance,Urine Clear (Clear); Bilirubin,Urine Negative (Negative); Blood,Urine Negative (Negative); Color,Urine Yellow; Glucose,Urine (UA) 4+ (Negative); Ketones,Urine Negative (Negative); Leukocyte Esterase,Urine Negative (Negative); Nitrite,Urine Negative (Negative); Protein,Urine Negative (Negative); Specific Gravity,Urine 1.018 (1.001-1.035); Urobilinogen,Urine <2.0 mg/dL (<2.0)
--- NOTE | 2018-06-11 18:08 | XR ---
EXAMINATION TYPE: XR chest 2V DATE OF EXAM: 06/11/2018 COMPARISON: 06/19/2017 HISTORY: 48-year-old female with chest pain and shortness of breath TECHNIQUE: PA and lateral views FINDINGS: Mild interstitial prominence as a chronic appearance, possible chronic bronchitis/asthma. Heart kevin l size. Aorta and pulmonary vasculature within normal limits. No consolidation or pleural effusion. IMPRESSION: Chronic changes without acute cardiopulmonary process.
[2018-06-11 19:10] LABS: ALT 39 U/L (9-52); AST 26 U/L (14-36); Alkaline Phosphatase 97 U/L (38-126); Anion Gap 11 mmol/L; Blood Urea Nitrogen 15 mg/dL (7-17); Calcium 9.3 mg/dL (8.4-10.2); Carbon Dioxide 23 mmol/L (22-30); Chloride 104 mmol/L (98-107); Glucose 369 mg/dL (74-99); Lipase 77 U/L (23-300); Magnesium 1.6 mg/dL (1.6-2.3); Sodium 138 mmol/L (137-145); Total Bilirubin 0.6 mg/dL (0.2-1.3); Total Protein 6.9 g/dL (6.3-8.2)
[2018-06-11 19:14] LABS: Potassium 4.5 mmol/L (3.5-5.1)
[2018-06-11 20:15] LABS: D-Dimer 0.34 mg/L FEU (<0.60); INR 0.9 (<1.2); Partial Thromboplastin Time 23.8 sec (22.0-30.0); Prothrombin Time 9.5 sec (9.0-12.0)
[2018-06-11] MEDS ORDERED: ASPIRIN 325 MG TAB PO STA (20:25)
[2018-06-11] MEDS ORDERED: NALOXONE 0.4 MG/ML 1 ML VIAL IV PRN (20:44)
[2018-06-11] MEDS ORDERED: MORPHINE SULFATE 4 MG/ML SYRINGE IV PRN (20:44)
[2018-06-11] MEDS ORDERED: NITROGLYCERIN SL TABS 0.4 MG TAB SUBLINGUAL PRN (20:45)
[2018-06-11 22:00] LABS: Glucose,Whole Blood 473 mg/dL (75-99)
[2018-06-11] MEDS ORDERED: BUTA/APAP/CAF/COD 50-325-40-30 CAP PO PRN (22:23)
[2018-06-11] MEDS ORDERED: INSULIN ASPART (NovoLOG) 100 UNIT/ML VIAL SQ PRN (22:26)
[2018-06-11] MEDS ORDERED: REGADENOSON 0.4 MG/5 ML SYRINGE IV ONE (22:28)
[2018-06-11] MEDS ORDERED: INSULIN DETEMIR (LEVEMIR) 100 UNIT/ML SYR SQ SCH ×2 (22:30→23:00)
--- NOTE | 2018-06-11 22:34 | P.HPIM ---
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 Apparently the patient was at rest after waking up this morning complaining of 8 out of 10 chest tightness described as elephant sitting on her chest that occurred while she was watching TV, she reports some associated shortness of breath and reports some radiation to her back, she denies any nausea vomiting or diaphoresis. She reports a recent bout of URI symptoms and was recently started on amoxicillin by her PCP this past , she reports a cough but denies any wheezing. The patient attempted to get to the ER via private vehicle but on the way her chest pain became increasingly intense, EMS was called on route the patient received nitroglycerin which resolved her pain. The patient is a former smoker, and reports having a stress test done over 10 years ago. The patient reports compliance with her diabetic regimen, states that her last A1c was approximately 10 about a month ago. She reports falling with Dr. Oliva for workup of possible seizure disorder and reports that she's on Topamax at present. In the ER the patient had a comprehensive workup Including a EKG that shows T- wave inversion inferiorly is no suggestion of acute ischemia chest x-ray was negative for any acute intrathoracic pathology only showed chronic changes suggestive of chronic bronchitis and asthma. Troponins are negative at less than 0.012 and d-dimer 0.34 Abnormal labs include a leukocytosis of 11.5, serum glucose at 369, positive urine glucose +4. The patient was recommended for admission to rule out ACS Review of Systems Pertinent positives per HPI all other review of systems otherwise negative Past Medical History Past Medical History: Diabetes Mellitus, Hypertension, Seizure Disorder, Thyroid Disorder Additional Past Medical History / Comment(s): chronic low back pain-SLEEPS IN A RECLINER CHAIR. PAST FX L3 AND L5, herniated discs,migraines, UTI'S. Last seizure in march of 2018 History of Any Multi-Drug Resistant Organisms: None Reported Past Surgical History: Back Surgery, Cholecystectomy, Hysterectomy Additional Past Surgical History / Comment(s): PARTIAL HYSTERECTOMY Past Anesthesia/Blood Transfusion Reactions: Previous Problems w/ Anesthesia Additional Past Anesthesia/Blood Transfusion Reaction / Comment(s): "WENT INTO SHOCK WITH EPIDURAL" CLAUSTERPHOBIA Past Psychological History: Depression Smoking Status: Former smoker Past Alcohol Use History: None Reported Past Drug Use History: None Reported - Past Family History Father Family Medical History: No Reported History Mother Additional Family Medical History / Comment(s): PROBLEMS W/ALLERGIES Medications and Allergies Home Medications Medication Instructions Recorded Confirmed Type Lisinopril [Zestril] 10 mg PO DAILY 08/08/14 06/11/18 History glipiZIDE [Glucotrol] 20 mg PO BID 08/08/14 06/11/18 History Levothyroxine Sodium [Synthroid] 175 mcg PO DAILY 03/15/16 06/11/18 History Gabapentin [Neurontin] 600 mg PO TID 04/13/17 06/11/18 History Omeprazole 20 mg PO BID 10/12/17 06/11/18 History Atorvastatin [Lipitor] 40 mg PO DAILY 10/19/17 06/11/18 History INSULIN LISPRO (humaLOG) [humaLOG] 10 units SQ TID-W/MEALS 10/19/17 06/11/18 History Escitalopram [Lexapro] 20 mg PO DAILY 05/02/18 06/11/18 History Insulin Glargine [Lantus] 45 unit SQ HS 05/02/18 06/11/18 History Topiramate [Topamax] 50 mg PO BID 05/02/18 06/11/18 History amLODIPine [Norvasc] 5 mg PO DAILY 05/02/18 06/11/18 History Hydrocodone/Acetaminophen [[place] 2 tab PO Q6HR PRN 05/03/18 06/11/18 History 5-325] INSULIN LISPRO (HumaLOG) [humaLOG] See Protocol SQ ACHS #1 vial 05/03/18 06/11/18 Rx Amoxicillin 500 mg PO TID 06/11/18 06/11/18 History Aspirin [Adult Low Dose Aspirin EC] 81 mg PO DAILY 06/11/18 06/11/18 History Buta/APAP/Caf/Cod 74-507-67-30 1 tab PO Q6HR PRN 06/11/18 06/11/18 History [Fioricet w/Cod 89-369-05-30MG] Allergies Allergy/AdvReac Type Severity Reaction Status Date / Time bupivacaine Allergy "went into Verified 06/11/18 21:48 shock" fentanyl Allergy Rash/Hives Verified 06/11/18 21:48 Physical Exam Vitals: Vital Signs Temp Pulse Pulse Resp BP Pulse Ox 06/11/18 18:25 97.9 F 86 18 106/61 98 06/11/18 16:38 72 06/11/18 16:29 77 15 06/11/18 16:10 82 06/11/18 15:58 98.3 F 76 18 122/67 100 Intake and Output 06/11/18 06/11/18 06/11/18 06:59 14:59 22:59 Other: Weight 122.47 kg Constitutional: No acute distress, conversant, pleasant Eyes: Anicteric sclerae, moist conjunctiva, no lid-lag, PERRLA ENMT: NC/AT,Oropharynx clear, no erythema, exudates Neck:Supple, FROM, no masses, or JVD, No carotid bruits; No thyromegaly Lungs: Clear to auscultation, Clear to percussion, Normal respiratory effort, no accessory muscle use Cardiovascular: Heart regular in rate and rhythm, No murmurs, gallops, or rubs no peripheral edema Abdominal: Soft Nontender, nom distended, no guarding, no rebound or rigidity, Normoactive bowel sounds No hepatomegaly, No splenomegaly, No palpable mass No abdominal wall hernia noted Skin: Normal temperature, tone, texture, turgor, No induration No subcutaneous nodules, No rash, lesions, No ulcers Extremities:No digital cyanosis No clubbing, Pedal pulses intact and symmetrical Radial pulses intact and symmetrical Normal gait and station, No calf tenderness Psychiatric: Alert and oriented to person, place and time, Appropriate affect Intact judgement Neuro: Muscles Strength 5/5 in all 4 extremities, Sensation to light touch grossly present throughout, Cranial nerves II-XII grossly intact. No focal sensory deficits Results CBC & Chem 7: 06/11/18 16:25 06/11/18 18:11 Labs: Abnormal Lab Results - Last 24 Hours (Table) 06/11/18 06/11/18 06/11/18 Range/Units 16:25 16:25 18:11 WBC 11.5 H (3.8-10.6) k/uL Lymphocytes # 5.4 H (1.0-4.8) k/uL Creatinine 0.49 L (0.52-1.04) mg/dL Glucose 369 H (74-99) mg/dL POC Glucose (mg/dL) (75-99) mg/dL Urine Glucose (UA) 4+ H (Negative) 06/11/18 Range/Units 21:59 WBC (3.8-10.6) k/uL Lymphocytes # (1.0-4.8) k/uL Creatinine (0.52-1.04) mg/dL Glucose (74-99) mg/dL POC Glucose (mg/dL) 473 H (75-99) mg/dL Urine Glucose (UA) (Negative) Assessment and Plan (1) Chest pain Current Visit: Yes Status: Acute Code(s): R07.9 - CHEST PAIN, UNSPECIFIED SNOMED Code(s): 51826473 (2) Essential hypertension Current Visit: Yes Status: Acute Code(s): I10 - ESSENTIAL (PRIMARY) HYPERTENSION SNOMED Code(s): 46758212 (3) Type 2 diabetes mellitus with hyperglycemia Current Visit: Yes Status: Acute Code(s): E11.65 - TYPE 2 DIABETES MELLITUS WITH HYPERGLYCEMIA SNOMED Code(s): 756605657865621 (4) Hyperlipidemia Current Visit: Yes Status: Acute Code(s): E78.5 - HYPERLIPIDEMIA, UNSPECIFIED SNOMED Code(s): 74889597 (5) Hypothyroidism Current Visit: Yes Status: Acute Code(s): E03.9 - HYPOTHYROIDISM, UNSPECIFIED SNOMED Code(s): 62632873 (6) Seizure disorder Current Visit: Yes Status: Acute Code(s): G40.909 - EPILEPSY, UNSP, NOT INTRACTABLE, WITHOUT STATUS EPILEPTICUS SNOMED Code(s): 287176594 (7) Asthma Current Visit: Yes Status: Acute Code(s): J45.909 - UNSPECIFIED ASTHMA, UNCOMPLICATED SNOMED Code(s): 341682217 Plan: The patient is placed in observation anticipate a less than 2 midnight stay with chest pain with ongoing CAD risk factors being uncontrolled type 2 diabetes, essential hypertension, dyslipidemia. Workup so far with EKG is negative for any sedation acute ischemia, troponin is negative at less than 0.012. We'll continue routine chest pain orders with antiplatelet therapy with aspirin, continue statin therapy. We'll continue to cycle troponins , order a Lexiscan stress test and consult cardiology. Patient's home antihypertensive regimen is resumed. Noted elevation of her blood sugars patient started on Accu-Cheks with resumption of her home insulin regimen along with correctional scale coverage, A1c is ordered and pending. I will continue to follow patient's clinical course CODE STATUS full code Discussed plan of care with: Nurse/ patient Anticipated discharge: 1-2 days Prophylaxis: Omeprazole/ SCDs and heparin Time with Patient: Greater than 30
[2018-06-11] MEDS: GABAPENTIN 300 MG CAP PO SCH (23:00)
[2018-06-11] MEDS: HEPARIN SODIUM,PORCINE 5,000 UNIT/ML 1 ML VIAL SQ SCH (23:00)
[2018-06-11] MEDS: TOPIRAMATE 25 MG TAB PO SCH (23:00)
[2018-06-11] MEDS: AMOXICILLIN 500 MG CAP PO SCH (23:12)
[2018-06-11] MEDS: HYDROcodone/APAP 5-325MG 1 EACH TAB PO PRN (23:48)
[2018-06-12 03:31] LABS: Cholesterol 169 mg/dL (<200); HDL Cholesterol 38 mg/dL (40-60); LDL Cholesterol,Calculated 74 mg/dL (0-99); Triglycerides 287 mg/dL (<150)
[2018-06-12] MEDS ORDERED: REGADENOSON 0.4 MG/5 ML SYRINGE IV ONE (06:45)
[2018-06-12] MEDS: LEVOTHYROXINE 100 MCG TAB PO SCH (06:48)
[2018-06-12] MEDS: LEVOTHYROXINE 75 MCG TAB PO SCH (06:48)
[2018-06-12] MEDS: GABAPENTIN 300 MG CAP PO SCH ×3 (06:53→20:24)
[2018-06-12 08:00] LABS: Glucose,Whole Blood 366 mg/dL (75-99)
[2018-06-12] MEDS ORDERED: DOBUTamine DRIP for NUC MED 500 MG in DEXTROSE/WATER 1 250ML.BAG IV ONE (09:46)
[2018-06-12] MEDS ORDERED: CAFFEINE CITRATE 60 MG/3 ML VIAL IV PRN (10:00)
[2018-06-12] MEDS ORDERED: DIPYRIDAMOLE IV ONE (10:00)
[2018-06-12 11:47] LABS: Glucose,Whole Blood 378 mg/dL (75-99)
--- NOTE | 2018-06-12 12:13 | P.CRDCN ---
History of Present Illness History of present illness: This is a pleasant 48 showed female past medical history significant for diabetes mellitus, hypertension, hypothyroidism and history of seizure disorder. She denies history of coronary artery disease and is never followed with a distribution spec for any reason. We have been asked to see her in consultation secondary to chest pain. She states over the previous couple of days she has noticed a tightness in the midsternal region associated with mild shortness of breath. She has a history of asthma and has been using her inhaler quite regularly taking these symptoms are related to an acute exacerbation of asthma however inhalers were not helping the tightness in her chest. She also describes having a cough and is bringing up yellow sputum intermittently. She denies fever or chills. His chest discomfort and shortness of breath comes at rest and is not associated with exertion. There is no radiation to the arm, back, neck or jaw. She denies associated dizziness, palpitations, nausea, vomiting or diaphoresis. EKG reveals sinus mechanism with no acute ST or T wave abnormalities noted. Chest x-ray is negative for an acute cardiopulmonary process. Laboratory data reviewed, WBC 11.5, hemoglobin 14.6, platelets 243, d-dimer 0.34, sodium 138, potassium 4.5, creatinine 0.49, magnesium 1.6, cardiac enzymes negative 3, LDL 74 and HDL 38. Current cardiac medications include lisinopril 10 mg daily, aspirin 81 mg daily, atorvastatin 40 mg daily and amlodipine 5 mg daily. At the time of my exam: CONSTITUTIONAL: Denies fever. Denies chills. EYES: Denies blurred vision. Denies vision changes. Denies eye pain. EARS, NOSE, MOUTH & THROAT: Denies headache. Denies sore throat. Denies ear pain. CARDIOVASCULAR: Denies chest pain. Denies shortness of breath. Denies orthopnea. Denies PND. Denies palpitations. RESPIRATORY: Denies cough. GASTROINTESTINAL: Denies abdominal pain. Denies diarrhea. Denies constipation. Denies nausea. Denies vomiting. MUSCULOSKELETAL: Denies myalgias. INTEGUMENTARY: Denies pruitis. Denies rash. NEUROLOGIC: Denies numbness. Denies tingling. Denies weakness. PSYCHIATRIC: Denies anxiety. Denies depression. ENDOCRINE: Denies fatigue. Denies weight change. Denies polydipsia. Denies polyurina. GENITOURINARY: Denies burning, hematuria or urgency with micturation. HEMATOLOGIC: Denies history of anemia. Denies bleeding. Blood pressure 116/57 heart rate 76 afebrile maintaining oxygen saturation on room air GENERAL: This is a 48-year-old female in no apparent distress at the time of my examination. HEENT: Head is atraumatic, normocephalic. Pupils are equal, round. Sclerae anicteric. Conjunctivae are clear. Mucous membranes of the mouth are moist. Neck is supple. There is no jugular venous distention. No carotid bruit is heard. LUNGS: Clear to auscultation no wheezes, rales or rhonchi. No chest wall tenderness is noted on palpation or with deep breathing. HEART: Regular rate and rhythm without murmurs, rubs or gallops. S1 and S2 heard. ABDOMEN: Soft, nontender. Bowel sounds are heard. No organomegaly noted. EXTREMITIES: No evidence of peripheral edema and no calf tenderness noted. VASCULAR: Radial and dorsalis pedis pulses palpated, no evidence of clubbing. NEUROLOGIC: Patient is awake, alert and oriented x3. ASSESSMENT Chest pain, atypical for angina. An acute coronary event has been ruled out. Leukocytosis Hypertension Diabetes mellitus History of asthma PLAN An acute coronary event has ruled out was no EKG evidence of ischemia and negative cardiac enzymes. Obtain 2-D echocardiogram and Doppler study to assess cardiac structure and function. Perform dobutamine stress echocardiogram to assess her stress induced cardiac ischemia rather than Lexiscan stress test secondary to the patient's age and prefer to avoid high-dose radiation. If stress test is normal she is stable from a cardiac perspective. Follow-up with Dr. Prince in 2-3 weeks. Thank you kindly for this consultation. Nurse Practitioner note has been reviewed, I agree with a documented findings and plan of care. Patient was seen and examined. Past Medical History Past Medical History: Diabetes Mellitus, Hypertension, Seizure Disorder, Thyroid Disorder Additional Past Medical History / Comment(s): chronic low back pain-SLEEPS IN A RECLINER CHAIR. PAST FX L3 AND L5, herniated discs,migraines, UTI'S. Last seizure in march of 2018 History of Any Multi-Drug Resistant Organisms: None Reported Past Surgical History: Back Surgery, Cholecystectomy, Hysterectomy Additional Past Surgical History / Comment(s): PARTIAL HYSTERECTOMY Past Anesthesia/Blood Transfusion Reactions: Previous Problems w/ Anesthesia Additional Past Anesthesia/Blood Transfusion Reaction / Comment(s): "WENT INTO SHOCK WITH EPIDURAL" CLAUSTERPHOBIA Past Psychological History: Depression Smoking Status: Former smoker Past Alcohol Use History: None Reported Past Drug Use History: None Reported - Past Family History Father Family Medical History: No Reported History Mother Additional Family Medical History / Comment(s): PROBLEMS W/ALLERGIES Medications and Allergies Home Medications Medication Instructions Recorded Confirmed Type Lisinopril [Zestril] 10 mg PO DAILY 08/08/14 06/11/18 History glipiZIDE [Glucotrol] 20 mg PO BID 08/08/14 06/11/18 History Levothyroxine Sodium [Synthroid] 175 mcg PO DAILY 03/15/16 06/11/18 History Gabapentin [Neurontin] 600 mg PO TID 04/13/17 06/11/18 History Omeprazole 20 mg PO BID 10/12/17 06/11/18 History Atorvastatin [Lipitor] 40 mg PO DAILY 10/19/17 06/11/18 History INSULIN LISPRO (humaLOG) [humaLOG] 10 units SQ TID-W/MEALS 10/19/17 06/11/18 History Escitalopram [Lexapro] 20 mg PO DAILY 05/02/18 06/11/18 History Insulin Glargine [Lantus] 45 unit SQ HS 05/02/18 06/11/18 History Topiramate [Topamax] 50 mg PO BID 05/02/18 06/11/18 History amLODIPine [Norvasc] 5 mg PO DAILY 05/02/18 06/11/18 History Hydrocodone/Acetaminophen [[place] 2 tab PO Q6HR PRN 05/03/18 06/11/18 History 5-325] INSULIN LISPRO (HumaLOG) [humaLOG] See Protocol SQ ACHS #1 vial 05/03/18 06/11/18 Rx Amoxicillin 500 mg PO TID 06/11/18 06/11/18 History Aspirin [Adult Low Dose Aspirin EC] 81 mg PO DAILY 06/11/18 06/11/18 History Buta/APAP/Caf/Cod 25-252-14-30 1 tab PO Q6HR PRN 06/11/18 06/11/18 History [Fioricet w/Cod 58-414-20-30MG] Allergies Allergy/AdvReac Type Severity Reaction Status Date / Time bupivacaine Allergy "went into Verified 06/11/18 21:48 shock" fentanyl Allergy Rash/Hives Verified 06/11/18 21:48 Physical Exam Vitals: Vital Signs Temp Pulse Pulse Pulse Resp BP BP 06/12/18 07:52 97.9 F 68 18 102/56 06/12/18 04:10 97.9 F 64 17 130/63 06/11/18 23:24 98.0 F 71 15 129/71 06/11/18 21:40 17 06/11/18 21:30 97.4 F L 83 16 124/59 06/11/18 18:25 97.9 F 86 18 106/61 06/11/18 16:38 72 06/11/18 16:29 77 15 06/11/18 16:10 82 06/11/18 15:58 98.3 F 76 18 122/67 Pulse Ox 06/12/18 07:52 96 06/12/18 04:10 95 06/11/18 23:24 99 06/11/18 21:40 06/11/18 21:30 97 06/11/18 18:25 98 06/11/18 16:38 06/11/18 16:29 06/11/18 16:10 06/11/18 15:58 100 Intake and Output 06/11/18 06/12/18 06/12/18 22:59 06:59 14:59 Other: Voiding Method Toilet Toilet # Voids 3 Weight 122.47 kg Results 06/11/18 16:25 06/11/18 18:11 Cardiac Enzymes 06/11/18 06/11/18 06/11/18 Range/Units 16:25 18:11 22:41 AST 26 (14-36) U/L Troponin I <0.012 <0.012 (0.000-0.034) ng/mL 06/12/18 Range/Units 04:21 AST (14-36) U/L Troponin I <0.012 (0.000-0.034) ng/mL Coagulation 06/11/18 Range/Units 19:52 PT 9.5 (9.0-12.0) sec APTT 23.8 (22.0-30.0) sec Lipids 06/11/18 Range/Units 18:11 Triglycerides 287 H (<150) mg/dL Cholesterol 169 (<200) mg/dL HDL Cholesterol 38 L (40-60) mg/dL CBC 06/11/18 Range/Units 16:25 WBC 11.5 H (3.8-10.6) k/uL RBC 5.06 (3.80-5.40) m/uL Hgb 14.6 (11.4-16.0) gm/dL Hct 45.5 (34.0-46.0) % Plt Count 243 (150-450) k/uL Comprehensive Metabolic Panel 06/11/18 Range/Units 18:11 Sodium 138 (137-145) mmol/L Potassium 4.5 (3.5-5.1) mmol/L Chloride 104 (98-107) mmol/L Carbon Dioxide 23 (22-30) mmol/L BUN 15 (7-17) mg/dL Creatinine 0.49 L (0.52-1.04) mg/dL Glucose 369 H (74-99) mg/dL Calcium 9.3 (8.4-10.2) mg/dL AST 26 (14-36) U/L ALT 39 (9-52) U/L Alkaline Phosphatase 97 (38-126) U/L Total Protein 6.9 (6.3-8.2) g/dL Albumin 4.0 (3.5-5.0) g/dL Current Medications Generic Name Dose Route Start Last Admin Trade Name Freq PRN Reason Stop Dose Admin Hydrocodone Bitart/Acetaminophen 2 each 06/11/18 22:23 06/11/18 23:48 Orbisonia 5-325 PO 2 each Q6HR PRN Administration back pain Amlodipine Besylate 5 mg 06/12/18 09:00 Norvasc PO DAILY ANDREW Amoxicillin 500 mg 06/11/18 22:30 06/11/18 23:12 Amoxicillin PO 500 mg TID ANDREW Administration Atorvastatin Calcium 40 mg 06/12/18 09:00 Lipitor PO DAILY ANDREW Caffeine Citrate 60 mg 06/12/18 10:00 Cafcit Inj IV 06/12/18 12:00 ONCE PRN Patient Response Escitalopram Oxalate 20 mg 06/12/18 09:00 Lexapro PO DAILY ANDREW Gabapentin 600 mg 06/11/18 22:30 06/12/18 06:53 Neurontin PO 600 mg TID ANDREW Administration Heparin Sodium (Porcine) 5,000 unit 06/12/18 00:00 06/11/18 23:00 Heparin SQ 5,000 unit Q8HR [facility] Administration Insulin Aspart 10 unit 06/12/18 07:30 Novolog SQ AC-TID [facility] Insulin Aspart 0 unit 06/11/18 22:26 Novolog SQ ACHS PRN Blood Sugar - High Protocol Insulin Detemir 45 unit 06/11/18 23:00 06/11/18 23:01 Levemir SQ 45 unit HS ANDREW Administration Levothyroxine Sodium 100 mcg 06/12/18 06:30 06/12/18 06:48 Synthroid PO 100 mcg DAILY@0630 [facility] Administration Levothyroxine Sodium 75 mcg 06/12/18 06:30 06/12/18 06:48 Synthroid PO 75 mcg DAILY@0630 [facility] Administration Lisinopril 10 mg 06/12/18 09:00 Zestril PO DAILY [facility] Morphine Sulfate 4 mg 06/11/18 20:44 Morphine Sulfate (Inj) IV Q4HR PRN Severe Pain Naloxone HCl 0.2 mg 06/11/18 20:44 Narcan IV Q2M PRN Opioid Reversal Nitroglycerin 0.4 mg 06/11/18 20:45 Nitrostat SUBLINGUAL Q5M PRN Chest Pain Pantoprazole Sodium 40 mg 06/12/18 09:00 Protonix PO DAILY [facility] Topiramate 50 mg 06/11/18 22:30 06/11/18 23:00 Topamax PO 50 mg BID [facility] Administration Intake and Output 06/11/18 06/12/18 06/12/18 22:59 06:59 14:59 Other: Voiding Method Toilet Toilet # Voids 3 Weight 122.47 kg 06/11/18 16:25 06/11/18 18:11
[2018-06-12 12:44] LABS: Hemoglobin A1C 10.1 % (4.0-6.0)
[2018-06-12 13:25] LABS: Glucose,Whole Blood 405 mg/dL (75-99)
[2018-06-12] MEDS: INSULIN ASPART (NovoLOG) 100 UNIT/ML VIAL SQ SCH ×3 (14:15→17:54)
[2018-06-12] MEDS: ESCITALOPRAM 20 MG TAB PO SCH (14:28)
[2018-06-12] MEDS: HYDROcodone/APAP 5-325MG 1 EACH TAB PO PRN ×2 (14:28→21:48)
[2018-06-12] MEDS: AMOXICILLIN 500 MG CAP PO SCH ×3 (14:29→20:24)
[2018-06-12] MEDS: TOPIRAMATE 25 MG TAB PO SCH ×2 (14:29→20:24)
[2018-06-12] MEDS: amLODIPine 5 MG TAB PO SCH (14:29)
[2018-06-12] MEDS: LISINOPRIL 10 MG TAB PO SCH (14:29)
[2018-06-12] MEDS: PANTOPRAZOLE 40 MG TABLET PO SCH (14:29)
[2018-06-12] MEDS: HEPARIN SODIUM,PORCINE 5,000 UNIT/ML 1 ML VIAL SQ SCH ×3 (14:29→23:03)
[2018-06-12] MEDS: ATORVASTATIN 40 MG TAB PO SCH (14:29)
[2018-06-12 16:39] LABS: Glucose,Whole Blood 402 mg/dL (75-99)
[2018-06-12] MEDS ORDERED: INSULIN ASPART (NovoLOG) 100 UNIT/ML VIAL SQ ONE (17:06)
--- NOTE | 2018-06-12 19:00 | P.PN ---
Subjective Progress Note Date: 06/12/18 Principal diagnosis: chest pain Patient is a 48-year-old female with a past medical history of non- controlled insulin-dependent diabetes mellitus type 2 with prior A1c of 10.8 and peripheral neuropathy, hypertension, hypothyroidism, possible seizure disorder, and morbid obesity presented to the ER via EMS with complaints of chest pain. She underwent an extensive evaluation. Her initial vital signs were within normal limits. Initial EKG did not show any evidence of acute ischemia. Initial troponin was negative. She is admitted for rule out of acute coronary syndrome. Her troponins remained negative. Cardiology was consulted and recommended stress test. Patient did struggle with hyperglycemia during hospitalization. However on discussion she has gotten much better about taking her insulin at home. Her A1c was 12 back in May, then 10.8 and now 10.1. She is headed in the right direction is working closely with her PCP at this point in time. Patient seen and examined at bedside. She denies any chest pain, shortness of breath, nausea, or vomiting. Currently awaiting stress test results. Objective - Vital Signs Vital signs: Vital Signs Temp 97.8 F 06/12/18 15:55 Pulse 75 06/12/18 15:55 Resp 18 06/12/18 15:55 BP 113/74 06/12/18 15:55 Pulse Ox 98 06/12/18 15:55 Intake & Output 06/11/18 06/12/18 06/12/18 18:59 06:59 18:59 Intake Total 440 Balance 440 Weight 122.47 kg 122.47 kg Intake: Oral 440 Other: Voiding Method Toilet Toilet # Voids 3 1 - Exam General: Obese, no distress, appears at stated age Derm: warm, dry Head: atraumatic, normocephalic, symmetric Eyes: EOMI, no lid lag, anicteric sclera Mouth: no lip lesion, mucus membranes moist Cardiovascular: S1S2 reg, no murmur, positive posterior tibial pulse bilateral, Lungs: CTA bilateral, no rhonchi, no rales , no accessory muscle use Abdominal: soft, nontender to palpation, no guarding, no appreciable organom egaly Ext: no gross muscle atrophy, no edema, no contractures Neuro: CN II-XI grossly intact, no focal neuro deficits Psych: Alert, oriented, appropriate affect - Labs CBC & Chem 7: 06/11/18 16:25 03/24/19 18:11 Labs: Abnormal Lab Results - Last 24 Hours (Table) 06/11/18 06/11/18 06/11/18 Range/Units 16:25 18:11 18:11 Creatinine 0.49 L (0.52-1.04) mg/dL Glucose 369 H (74-99) mg/dL POC Glucose (mg/dL) (75-99) mg/dL Hemoglobin A1c 10.1 H (4.0-6.0) % Triglycerides 287 H (<150) mg/dL HDL Cholesterol 38 L (40-60) mg/dL 06/11/18 06/12/18 06/12/18 Range/Units 21:59 07:59 11:46 Creatinine (0.52-1.04) mg/dL Glucose (74-99) mg/dL POC Glucose (mg/dL) 473 H 366 H 378 H (75-99) mg/dL Hemoglobin A1c (4.0-6.0) % Triglycerides (<150) mg/dL HDL Cholesterol (40-60) mg/dL 06/12/18 06/12/18 Range/Units 13:24 16:37 Creatinine (0.52-1.04) mg/dL Glucose (74-99) mg/dL POC Glucose (mg/dL) 405 H 402 H (75-99) mg/dL Hemoglobin A1c (4.0-6.0) % Triglycerides (<150) mg/dL HDL Cholesterol (40-60) mg/dL Assessment and Plan Assessment: Chest pain, concern for possible unstable angina -Await stress test results -Aspirin -Cardiology recommendations -Continue Lipitor Diabetes mellitus type 2, insulin-dependent with hyperglycemia and associated neuropathy -26 units this evening prior to dinner -Increase Levemir 48 units -Hold Amaryl and case nothing by mouth needs in a.m. for cardiac cath -Follow blood sugars -A1c 10.1 Hypertension, controlled -Continue current medications Recent URI - supportive care Dyslipidemia -Continue Lipitor Possible seizure disorder -Continue Topamax -Has outpatient testing scheduled with Dr. Oliva in a.m. Morbid obesity -Structured outpatient weight loss Anticipated discharge home once stress test is available Discussed with: Patient, Nursing Anticipated discharge: [address]: home A total of [20] minutes was spent on the care of this complex patient more than 50% of the time was spent in counseling and care coordination.
[2018-06-12 20:59] LABS: Glucose,Whole Blood 347 mg/dL (75-99)
[2018-06-12] MEDS ORDERED: INSULIN DETEMIR (LEVEMIR) 100 UNIT/ML SYR SQ SCH (21:00)
[2018-06-13 04:18] VITALS: PULSE 66
[2018-06-13] MEDS: LEVOTHYROXINE 75 MCG TAB PO SCH (06:19)
[2018-06-13] MEDS: LEVOTHYROXINE 100 MCG TAB PO SCH (06:19)
[2018-06-13 06:44] LABS: Glucose,Whole Blood 366 mg/dL (75-99)
[2018-06-13 08:35] VITALS: BP 106/66; RESP 18; TEMP 97.7
--- NOTE | 2018-06-13 09:03 | ECHOF ---
Referral Reason:cp MEASUREMENTS -------- HEIGHT: 172.7 cm WEIGHT: 122.5 kg BP: 102/56 RVIDd: 2.8 cm (< 3.3) IVSd: 1.1 cm (0.6 - 1.1) LVIDd: 4.6 cm (3.9 - 5.3) LVPWd: 1.1 cm (0.6 - 1.1) IVSs: 1.3 cm LVIDs: 2.7 cm LVPWs: 1.3 cm LAESV Index (A-L): 13.37 ml/m Ao Diam: 2.7 cm (2.0 - 3.7) AV Cusp: 1.9 cm (1.5 - 2.6) LA Diam: 3.7 cm (2.7 - 3.8) EPSS: 0.3 cm MV E Kevin: 0.68 m/s MV DecT: 217 ms MV A Kevin: 0.50 m/s MV E/A Ratio: 1.37 RAP: 5.00 mmHg RVSP: 26.34 mmHg MV EF SLOPE: 103.15 mm/s (70 - 150) MV EXCURSION: 1.27 cm (> 18.000) FINDINGS -------- Sinus rhythm. This was a technically adequate study. The left ventricular size is normal. There is borderline concentric left ventricular hypertrophy. Overall left ventricular systolic function is normal with, an EF between 55 - 60 %. The right ventricle is normal in size and function. Normal LA size by volume 22+/-6 ml/m2. The right atrium is normal in size. The aortic valve is trileaflet, and appears structurally normal. No aortic stenosis or regurgitation. The mitral valve is normal. There is trace to mild mitral regurgitation. Trace tricuspid regurgitation present. Right ventricular systolic pressure is normal at < 35 mmHg. There is no evidence of pulmonary hypertension. The pulmonic valve was not well visualized. The aortic root size is normal. IVC Not well visulized. There is no pericardial effusion. CONCLUSIONS -------- 1. Sinus rhythm. 2. This was a technically adequate study. 3. The left ventricular size is normal. 4. There is borderline concentric left ventricular hypertrophy. 5. Overall left ventricular systolic function is normal with, an EF between 55 - 60 %. 6. Normal LA size by volume 22+/-6 ml/m2. 7. The aortic valve is trileaflet, and appears structurally normal. No aortic stenosis or regurgitati on. 8. There is trace to mild mitral regurgitation. 9. Trace tricuspid regurgitation present. 10. Right ventricular systolic pressure is normal at < 35 mmHg. 11. There is no evidence of pulmonary hypertension. 12. The pulmonic valve was not well visualized. 13. The aortic root size is normal. 14. IVC Not well visulized. 15. There is no pericardial effusion. [employer] OFFICER: Valerio Berman RDCS
[2018-06-13] MEDS: INSULIN ASPART (NovoLOG) 100 UNIT/ML VIAL SQ SCH (09:41)
[2018-06-13] MEDS: AMOXICILLIN 500 MG CAP PO SCH (09:42)
[2018-06-13] MEDS: ESCITALOPRAM 20 MG TAB PO SCH (09:42)
[2018-06-13] MEDS: LISINOPRIL 10 MG TAB PO SCH (09:42)
[2018-06-13] MEDS: HEPARIN SODIUM,PORCINE 5,000 UNIT/ML 1 ML VIAL SQ SCH (09:42)
[2018-06-13] MEDS: PANTOPRAZOLE 40 MG TABLET PO SCH (09:42)
[2018-06-13] MEDS: GABAPENTIN 300 MG CAP PO SCH (09:42)
[2018-06-13] MEDS: ATORVASTATIN 40 MG TAB PO SCH (09:42)
[2018-06-13] MEDS: amLODIPine 5 MG TAB PO SCH (09:43)
[2018-06-13] MEDS: TOPIRAMATE 25 MG TAB PO SCH (09:43)
--- NOTE | 2018-06-13 09:50 | ECHOS ---
STRESS ECHOCARDIOGRAM INDICATIONS: Chest pain, BASELINE HEART RATE: 65 BASELINE BLOOD PRESSURE: 106/58 MAXIMUM HEART RATE: 152 MAXIMUM BLOOD PRESSURE: 160/73 85% MPHR: 148 100% MPHR: 174 MAXIMUM STAGE REACHED: 3 TOTAL EXERCISE TIME: 9:38 CLINICAL INFORMATION: Dobutamine echocardiographic study was performed, peak heart rate of 152 was achieved. Maximum blood pressure 160/73 mmHg was noted. Resting EKG shows normal sinus rhythm with normal IA interval and QRS duration and normal ST-T waves. No ST-segment depression suggestive of ischemia was noted. Occasional PVCs were noted. The baseline echocardiographic images reveals normal left ventricular chamber size with normal left ventricular systolic function. At the peak dose of dobutamine infusion, normal increase in the wall thickness and contractility is noted. FINAL IMPRESSION: This dobutamine stress echocardiographic study is negative for stress-induced ischemia. EKG portion of the stress test is not suggestive of ischemia. Occasional premature ventricular contractions are noted. MMODL / IJN: [id number] /
--- NOTE | 2018-06-13 10:05 | P.DS ---
Providers Date of admission: 06/11/18 20:48 Expected date of discharge: 06/13/18 Attending physician: Gary Dhillon MD Consults: 06/11/18 20:44 Consult Physician Routine Consulting Provider: Kwadwo Saini Consult Reason/Comments: cp Do you want consulting provider notified?: Yes Primary care physician: Teresa Jose Hospital Course: Discharge Diagnosis: Chest pain, non cardiac, ACS ruled out DM2 insulin requiring, with hyperglycemia and neuropathy HTN Recent Upper respiratory tract infection HLD Possible seizure disorder Morbid obesity BMI 41.1 Hospital Course: Patient is a 48-year-old female with a past medical history of non- controlled insulin-dependent diabetes mellitus type 2 with prior A1c of 10.8 and peripheral neuropathy, hypertension, hypothyroidism, possible seizure disorder, and morbid obesity She presented to the ER via EMS with complaints of chest pain. She underwent an extensive evaluation. Her initial vital signs were within normal limits. Initial EKG did not show any evidence of acute ischemia. Initial troponin was negative. She was admitted for rule out of acute coronary syndrome. Her troponins remained negative. Cardiology was consulted and recommended stress test. She completed exercise stress echo which was negative for any signs of ischemia. She did not have any recurrence of chest pain during her hospital stay. She was determined stable for discharge. Her blood sugar was high, but she has been working on this closely with her PCP. Her A1C was 12 in December and is now 10.1. She will follow with Dr. Jose in 1-[address] Prince in 2 weeks. Patient seen and examined at bedside. Denies any chest pain, SOB, or nausea. Feeling back to baseline and wants to go home. Vital signs reviewed and stable. General: non toxic, no distress, appears at stated age Derm: warm, dry Head: atraumatic, normocephalic, symmetric Eyes: EOMI, no lid lag, anicteric sclera Mouth: no lip lesion, mucus membranes moist Cardiovascular: S1S2 reg, no murmur, positive posterior tibial pulse bilateral, Lungs: CTA bilateral, no rhonchi, no rales , no accessory muscle use Abdominal: soft, nontender to palpation, no guarding, no appreciable organomegaly Ext: no gross muscle atrophy, no edema, no contractures Neuro: CN II-XI grossly intact, no focal neuro deficits Psych: Alert, oriented, appropriate affect A total of 25 minutes of time were spent preparing this complex discharge summary . Pertinent Studies: Stress echo- negative for signs of ischemia Echo- EF 55-60% CXR- No acute process Patient Condition at Discharge: Stable Plan - Discharge Summary Discharge Rx Participant: No New Discharge Prescriptions: Continue glipiZIDE [Glucotrol] 20 mg PO BID Lisinopril [Zestril] 10 mg PO DAILY Levothyroxine Sodium [Synthroid] 175 mcg PO DAILY Gabapentin [Neurontin] 600 mg PO TID Omeprazole 20 mg PO BID Atorvastatin [Lipitor] 40 mg PO DAILY INSULIN LISPRO (humaLOG) [humaLOG] 10 units SQ TID-W/MEALS Topiramate [Topamax] 50 mg PO BID amLODIPine [Norvasc] 5 mg PO DAILY Escitalopram [Lexapro] 20 mg PO DAILY Insulin Glargine [Lantus] 45 unit SQ HS Hydrocodone/Acetaminophen [Savanna 5-325] 2 tab PO Q6HR PRN PRN Reason: back pain INSULIN LISPRO (HumaLOG) [humaLOG] See Protocol SQ ACHS #1 vial Aspirin [Adult Low Dose Aspirin EC] 81 mg PO DAILY Amoxicillin 500 mg PO TID Buta/APAP/Caf/Cod [id number] [Fioricet w/Cod [id number]] 1 tab PO Q6HR PRN PRN Reason: Headache Discharge Medication List Lisinopril [Zestril] 10 mg PO DAILY 08/08/14 [History] glipiZIDE [Glucotrol] 20 mg PO BID 08/08/14 [History] Levothyroxine Sodium [Synthroid] 175 mcg PO DAILY 03/15/16 [History] Gabapentin [Neurontin] 600 mg PO TID 04/13/17 [History] Omeprazole 20 mg PO BID 10/12/17 [History] Atorvastatin [Lipitor] 40 mg PO DAILY 10/19/17 [History] INSULIN LISPRO (humaLOG) [humaLOG] 10 units SQ TID-W/MEALS 10/19/17 [History] Escitalopram [Lexapro] 20 mg PO DAILY 05/02/18 [History] Insulin Glargine [Lantus] 45 unit SQ HS 05/02/18 [History] Topiramate [Topamax] 50 mg PO BID 05/02/18 [History] amLODIPine [Norvasc] 5 mg PO DAILY 05/02/18 [History] Hydrocodone/Acetaminophen [[place] 5-325] 2 tab PO Q6HR PRN 05/03/18 [History] INSULIN LISPRO (HumaLOG) [humaLOG] See Protocol SQ ACHS #1 vial 05/03/18 [Rx] Amoxicillin 500 mg PO TID 06/11/18 [History] Aspirin [Adult Low Dose Aspirin EC] 81 mg PO DAILY 06/11/18 [History] Buta/APAP/Caf/Cod [id number] [Fioricet w/Cod 16-870-13-30MG] 1 tab PO Q6HR PRN 06/11/18 [History] Follow up Appointment(s)/Referral(s): Teresa Jose DO [Primary Care Provider] - 1-2 days Geri Prince MD [STAFF PHYSICIAN] - 2 Weeks Patient Instructions/Handouts: Basic Carbohydrate Counting (DC) Activity/Diet/Wound Care/Special Instructions: Diet: heart healthy, diabetic Activity: as tolerated Resume home synthroid dosing Discharge Disposition: HOME SELF-CARE
[2018-06-13 10:17] VITALS: BMI 41.0
[2018-06-13] MEDS ORDERED: INSULIN DETEMIR (LEVEMIR) 100 UNIT/ML SYR SQ SCH (21:00)
== END 2018-06-13 10:50 | disposition home or self-care (01) ==
LOC: EC 15:56 → 1SOBS 20:48
PROVIDERS: ADMIT Family Medicine; ATTEND Family Medicine
DX: R07.89 Other chest pain (principal); E11.65 Type 2 diabetes mellitus with hyperglycemia; E11.42 Type 2 diabetes mellitus with diabetic polyneuropathy; E78.5 Hyperlipidemia, unspecified; J06.9 Acute upper respiratory infection, unspecified; J45.909 Unspecified asthma, uncomplicated; E03.9 Hypothyroidism, unspecified; G40.909 Epilepsy, unspecified, not intractable, without status epilepticus; I10 Essential (primary) hypertension; D72.829 Elevated white blood cell count, unspecified; M54.5 Low back pain; G89.29 Other chronic pain; G43.909 Migraine, unspecified, not intractable, without status migrainosus; F40.240 Claustrophobia; F32.9 Major depressive disorder, single episode, unspecified; E66.01 Morbid (severe) obesity due to excess calories; Z68.41 Body mass index [BMI] 40.0-44.9, adult; Z79.4 Long term (current) use of insulin; Z79.82 Long term (current) use of aspirin; Z79.890 Hormone replacement therapy; Z79.899 Other long term (current) drug therapy; Z88.4 Allergy status to anesthetic agent; Z88.5 Allergy status to narcotic agent; Z87.440 Personal history of urinary (tract) infections; Z87.81 Personal history of (healed) traumatic fracture; Z87.891 Personal history of nicotine dependence; Z90.49 Acquired absence of other specified parts of digestive tract; Z84.89 Family history of other specified conditions
CPT/HCPCS: 96372 ×3; 96374; 99285; 36415; 94640; 93005; 93306; 93351; 85379; 80061; 80053; 83690; 83735; 84484 ×2; 85025; 85610; 85730; 81003; 81025; 83036; 71046; G0378 ×3; J1250; J1644 ×3; J1100; J2785; Q9950

== ENCOUNTER → 2019-10-11 | Outpatient (CLI) | payer OTHER ==
[2019-10-15 09:42] LABS: Anabasine Urine <2.0 ng/mL (<2.0)
== END | disposition home or self-care (01) ==
LOC: LABWHC1 11:43
PROVIDERS: ATTEND Nurse Practitioner Adult Health
DX: Z01.818 Encounter for other preprocedural examination (principal)
CPT/HCPCS: 80323

== ENCOUNTER → 2019-10-25 | Outpatient (CLI) | payer OTHER | END | disposition home or self-care (01) | LOC: LABWHC1 12:58 | PROVIDERS: ATTEND Nurse Practitioner Adult Health | DX: Z01.818 Encounter for other preprocedural examination (principal) | CPT/HCPCS: 80323 ==

== ENCOUNTER 2020-01-22 10:22 | Emergency (ER) | payer OTHER ==
[2020-01-22 10:29] VITALS: TEMP 97.6
--- NOTE | 2020-01-22 10:57 | ED ---
General Adult HPI - General Chief complaint: Shortness of Breath Stated complaint: sob Time Seen by Provider: 01/22/20 10:30 Source: patient, RN notes reviewed, old records reviewed Mode of arrival: ambulatory Limitations: no limitations - History of Present Illness Initial comments: This is a 49-year-old female presents emergency department stating she is currently being treated for a sinus infection with Augmentin. States she is 4 days left on Augmentin. Patient states the sinus infection appears to be resolving however she has quite a bit of postnasal drip and over the last 2 days she has been having quite a bit of coughing. Patient states she's only short of breath when she is coughing when she is not coughing she does not know some shortness of breath. Patient denies any known fever or chills. Patient denies any chest pain. Patient denies any lightheadedness dizziness - Related Data Home Medications Medication Instructions Recorded Confirmed glipiZIDE [Glucotrol] 20 mg PO BID 08/08/14 01/22/20 Levothyroxine Sodium [Synthroid] 175 mcg PO DAILY 03/15/16 01/22/20 Gabapentin [Neurontin] 600 mg PO TID 04/13/17 01/22/20 Omeprazole 20 mg PO BID 10/12/17 01/22/20 Atorvastatin [Lipitor] 40 mg PO HS 10/19/17 01/22/20 amLODIPine [Norvasc] 5 mg PO DAILY 05/02/18 01/22/20 Aspirin [Adult Low Dose Aspirin EC] 81 mg PO DAILY 06/11/18 01/22/20 Amoxicillin 875 mg PO Q12HR 01/22/20 01/22/20 Cetirizine HCl [Zyrtec] 10 mg PO DAILY 01/22/20 01/22/20 Katia 0.35mg 1 tab PO DAILY 01/22/20 01/22/20 INSULIN LISPRO (humaLOG) [humaLOG] 10 - 20 units SQ AC-TID 01/22/20 01/22/20 Insulin Glargine,Hum.rec.anlog 40 unit SQ BID 01/22/20 01/22/20 [Basaglar Kwikpen U-100] Montelukast [Singulair] 10 mg PO DAILY 01/22/20 01/22/20 Oxybutynin Chloride [Oxybutynin 10 mg PO BID 01/22/20 01/22/20 Chloride ER] Topiramate [Trokendi Xr] 200 mg PO DAILY 01/22/20 01/22/20 Allergies Allergy/AdvReac Type Severity Reaction Status Date / Time bupivacaine Allergy "went into Verified 01/22/20 11:51 shock" ciprofloxacin [From Cipro] Allergy Rash/Hives Verified 01/22/20 11:51 fentanyl Allergy Rash/Hives Verified 01/22/20 11:51 Review of Systems ROS Statement: Those systems with pertinent positive or pertinent negative responses have been documented in the HPI. ROS Other: All systems not noted in ROS Statement are negative. Past Medical History Past Medical History: Diabetes Mellitus, Hypertension, Seizure Disorder, Thyroid Disorder Additional Past Medical History / Comment(s): chronic low back pain-SLEEPS IN A RECLINER CHAIR. PAST FX L3 AND L5, herniated discs,migraines, UTI'S. Last seizure in march of 2018 History of Any Multi-Drug Resistant Organisms: None Reported Past Surgical History: Back Surgery, Cholecystectomy, Hysterectomy Additional Past Surgical History / Comment(s): PARTIAL HYSTERECTOMY Past Anesthesia/Blood Transfusion Reactions: Previous Problems w/ Anesthesia Additional Past Anesthesia/Blood Transfusion Reaction / Comment(s): "WENT INTO SHOCK WITH EPIDURAL" CLAUSTERPHOBIA Past Psychological History: Depression Smoking Status: Never smoker Past Alcohol Use History: None Reported Past Drug Use History: None Reported - Past Family History Father Family Medical History: No Reported History Mother Additional Family Medical History / Comment(s): PROBLEMS W/ALLERGIES General Exam - General Exam Comments Initial Comments: GENERAL: Patient is well-developed and well-nourished. Patient is nontoxic and well- hydrated and is in no acute distress. Patient was talking on the phone without any shortness of breath. ENT: Neck is soft and supple. No significant lymphadenopathy is noted. Oropharynx is clear. Moist mucous membranes. Neck has full range of motion without eliciting any pain. EYES: The sclera were anicteric and conjunctiva were pink and moist. Extraocular movements were intact and pupils were equal round and reactive to light. Eyelids were unremarkable. PULMONARY: Unlabored respirations. Good breath sounds bilaterally. No audible rales rhonchi or wheezing was noted. CARDIOVASCULAR: There is a regular rate and rhythm without any murmurs gallops or rubs. ABDOMEN: Soft and nontender with normal bowel sounds. SKIN: Skin is clear with no lesions or rashes and otherwise unremarkable. NEUROLOGIC: Patient is alert and oriented x3. Cranial nerves II through XII are grossly intact. Motor and sensory are also intact. Normal speech, volume and content. Symmetrical smile. MUSCULOSKELETAL: Normal extremities with adequate strength and full range of motion. LYMPHATICS: No significant lymphadenopathy is noted PSYCHIATRIC: Normal psychiatric evaluation. Limitations: no limitations Course Vital Signs 01/22/20 01/22/20 10:27 11:57 Temperature 97.6 F Pulse Rate 86 95 Respiratory 18 17 Rate Blood Pressure 139/86 128/78 O2 Sat by Pulse 98 96 Oximetry Medical Decision Making - Medical Decision Making Chest x-ray showed no acute abnormality. Disposition Clinical Impression: Cough, Postnasal drip Disposition: HOME SELF-CARE Condition: Good Instructions (If sedation given, give patient instructions): Acute Cough (ED), Postnasal Drip (DC) Is patient prescribed a controlled substance at d/c from ED?: No Referrals: Iram Her MD [Primary Care Provider] - 1-2 days Time of Disposition: 13:10
--- NOTE | 2020-01-22 11:34 | XR ---
EXAMINATION TYPE: XR chest 2V DATE OF EXAM: 01/22/2020 COMPARISON: 06/11/2018 HISTORY: 49-year-old female shortness of breath, cough, difficulty breathing TECHNIQUE: PA and lateral views FINDINGS: Heart normal size. Aorta and bony vasculature within normal limits. Mild interstitial prominence and peribronchial cuffing. No consolidation or pleural effusion. IMPRESSION: Correlate for possible bronchitis or asthma. No focal infiltrate.
[2020-01-22 11:58] VITALS: BP 128/78; PULSE 95; RESP 17
== END 2020-01-22 13:30 | disposition home or self-care (01) ==
LOC: EC 10:22
DX: R05 Cough (principal); R09.82 Postnasal drip; F32.9 Major depressive disorder, single episode, unspecified; E11.9 Type 2 diabetes mellitus without complications; I10 Essential (primary) hypertension; E78.5 Hyperlipidemia, unspecified; G40.909 Epilepsy, unspecified, not intractable, without status epilepticus; Z79.4 Long term (current) use of insulin; Z79.899 Other long term (current) drug therapy; Z79.82 Long term (current) use of aspirin; Z86.69 Personal history of other diseases of the nervous system and sense organs; Z88.1 Allergy status to other antibiotic agents; Z88.8 Allergy status to other drugs, medicaments and biological substances
CPT/HCPCS: 71046; 99285